=== PATIENT | female | born 1975 | race Caucasian/White ===

== ENCOUNTER 2023-09-05 17:28 | Emergency (ER) | payer OTHER, SELFPAY ==
[2023-09-05 17:28] VITALS: BMI 26.8
[2023-09-05 17:30] VITALS: BP 138/81
[2023-09-05] MEDS: NSS 1000 IV (17:58)
[2023-09-05 18:15] LABS: % Basophils 0.1 % (0-2); % Immature Granulocytes 0.4 % (0-0.5); % Lymphocytes 7.2 % (20.5-51.1); % Monocytes 5.3 % (1.7-9.3); Absolute Lymphocytes 0.7 10^3/uL (1.2-3.4); Absolute Monocytes 0.5 10^3/uL (0.1-0.6); Absolute Neutrophils 8.6 10^3/uL (1.4-6.5); Hematocrit 40.6 % (37.0-47.0); Hemoglobin 13.9 g/dL (12.0-16.0); Mean Corp Hgb Conc. 34.2 g/dL (33.0-37.0); Mean Corpuscular Hgb 29.6 pg (27.0-31.0); Mean Corpuscular Volume 86.6 fL (81.0-99.0); Mean Platelet Volume 9.6 fL (7.4-10.4); Nucleated Red Blood Cells % 0 %; Platelet Count 320 10^3/uL (130-400); Red Blood Cell Count 4.69 10^6/uL (4.20-5.40); Red Cell Dist. Width 12.5 % (11.5-14.5); White Blood Cell Count 9.9 10^3/uL (4.8-10.8)
[2023-09-05 18:29] LABS: ALT (SGPT) 17 U/L (0-35); AST (SGOT) 33 U/L (14-36); Albumin 4.4 g/dl (3.5-5.0); Alkaline Phosphatase 56 U/L (38-126); Blood Urea Nitrogen 13 mg/dl (7-17); Calcium 9.4 mg/dl (8.4-10.2); Carbon Dioxide 25 mmol/L (22-30); Chloride 98 mmol/L (98-107); Estimated Creatinine Clearance 117 ml/min; Glucose 102 mg/dl (70-99); Lipase 46 U/L (23-300); Potassium 3.8 mmol/L (3.5-5.1); Sodium 131 mmol/L (135-145); Total Bilirubin 0.6 mg/dl (0.2-1.3); Total Protein 7.5 g/dl (6.3-8.2); eGFR > 60.00
[2023-09-05] MEDS: PEPCID 20 MG IV (18:32)
[2023-09-05] MEDS: ZOFRAN 4 MG IV (18:33)
[2023-09-05 19:20] LABS: HCG, Serum Qualitative Screen Negative
[2023-09-05] MEDS: DILAUDID 0.5 MG IV (19:42)
[2023-09-05 20:35] VITALS: BP 130/76
--- NOTE | 2023-09-05 21:44 | ED.GENMED ---
History of Present Illness
General
Chief Complaint: Abdominal Symptoms
Source: patient
Exam Limitations: none
Time Seen by Provider: 09/05/23 18:09
Nursing documentation reviewed up to this point in time: agreed with
Travel History
Have you had any contact with someone who has COVID-19?: No
Do you have any symptoms of coronavirus? Fever > 100 degrees, chills, cough, shortness of breath, sore throat, loss of taste or smell, muscle aches, or headache?: No
History of Present Illness
History of Present Illness:
48-year-old female with past medical history of anemia anxiety depression bipolar disorder presenting to the emergency department today with concerns of nausea vomiting diarrhea as well as right lower quad abdominal pain starting last night.
Started abruptly while sleeping last night. Ongoing symptoms this morning difficulty tolerating anything by mouth today. Denies chest pain shortness of breath or fevers. No blood in the stool
Past History
Past History
ED Past Medical History: Psychiatric (Bipolar, Anxiety, depression) and Other (Back pain, Dizziness, Headaches, Migraines, Numbness in arms and legs, Pyelonephritis, Iron -def anemia, )
ED Past Surgical History: Orthopedic (Cervical laminectomy anterior approach)
Social History
Tobacco: Non-smoker
Alcohol: None
Drug: None
Personal:
Living: with family
Employment: Employed
Family History
Family History: Other (Reviewed and noncontributory)
Review of Systems
Review of Systems
Allergies reviewed?: Yes
All Other Systems: ROS reviewed and negative except as documented in HPI and ROS
Phy Exam
Physical Exam
Physical Exam:
GENERAL: Alert , in no apparent distress
EYE: pupils equal and reactive
NECK: Supple, no significant adenopathy.
ENT: o/p clr, mmm.
CARDIAC: Regular rate and rhythm .
LUNGS: Clear breath sounds bilaterally, no acute respiratory distress, no wheezes/rales/rhonchi
ABDOMEN: Tender palpation to the right lower quadrant otherwise soft benign abdomen.
NEUROLOGICAL: Alert and oriented, no focal neuro deficits
SKIN: Warm and dry, skin intact.
MUSCULOSKELETAL: No edema, well perfused.
PSYCH: Normal and appropriate interaction.
Course
Orders/Labs/Results
Orders:
Orders
09/05/23 17:57
0.9% Sodium Chloride 1000 ml [Nss] 1,000 ml IV BOLUS
09/05/23 18:03
Complete Blood Count/With Diff Urgent
Comprehensive Metabolic Panel Urgent
HCG, Serum Qualitative Screen Urgent
Comment: ADD ON
Lipase Urgent
09/05/23 18:21
Add On- LAB Urgent
Tests Added?: hcg serum qual
CT Abd/Pel (IV only)-DH only Urgent
Comment:
Reason For Exam: rlq pain
Famotidine [Pepcid] 20 mg IV NOW STA
Ondansetron Injectable [Zofran] 4 mg IV NOW STA
09/05/23 18:37
Add On- LAB Urgent
Tests Added?: hcg qualitative
09/05/23 19:32
HYDROmorphone [Dilaudid] 0.5 mg IV NOW STA
Abnormal Lab Results
09/05/23
18:03
Absolute Neuts (auto) 8.6 H 10^3/uL
(1.4-6.5)
Absolute Lymphs (auto) 0.7 L 10^3/uL
(1.2-3.4)
Neutrophils % 87.0 H %
(42.2-75.2)
Lymphocytes % 7.2 L %
(20.5-51.1)
Sodium 131 L mmol/L
(135-145)
Glucose 102 H mg/dl
(70-99)
09/05/23 18:03
09/05/23 18:03
Vital Signs
Initial and Last Documented VS:
Initial Vital Signs
Temp Pulse Resp BP Pulse Ox
99.4 F 110 18 138/81 100
09/05/23 17:30 09/05/23 17:30 09/05/23 17:30 09/05/23 17:30 09/05/23 17:30
Last Documented Vital Signs
Temp Pulse Resp BP Pulse Ox
99.4 F 89 18 130/76 98
09/05/23 17:30 09/05/23 20:35 09/05/23 17:30 09/05/23 20:35 09/05/23 20:35
MDM/Problems Addressed
MDM/Problems Addressed:
48-year-old female presenting to the emergency department today with concerns of nausea vomit diarrhea. Does have tenderness to the right lower quadrant. Initial symptoms sound more consistent with gastroenteritis however does have reproducible
tenderness raising concern for possible appendicitis. Concerning the CT scan was performed without evidence of appendicitis does have findings consistent with enteritis. Additionally had incidental finding that was discussed with the patient.
Labs unremarkable stable for outpatient management return precautions given.
*Critical Care Note
Total Time (30-74mins, 75-104mins- exclusive of procedures): Not Applicable
ED Attending Note
-
Portions of this chart may have been created with voice recognition software.� Occasional wrong word or��sound alike� substitutions may have occurred due to the inherent limitations of voice recognition software.
Discharge Plan
Departure
Patient Disposition: Home (Routine Discharge)
Date of Disposition: 09/05/23
Time of Disposition: 21:44
Patient with high blood pressure during this ER visit?: No
Condition: Good
Covid-19: Not Applicable
Discharge Problem:
Enteritis, Kidney mass
Instructions: Abdominal Pain
Prescriptions:
New
ondansetron 4 mg tablet,disintegrating
4 mg PO Q8H PRN (Reason: nausea and vomiting) Qty: 7 0RF
No Action
lamotrigine [Lamictal] 200 MG tablet
200 mg PO QHS
clonazepam 1 MG tablet
0.5 mg PO TIDPRN PRN (Reason: anxiety)
duloxetine [Cymbalta] 60 mg Capsule,Delayed Release(Dr/Ec)
120 mg PO DAILY
Caplyta 42 mg Capsule
42 mg PO QHS
cyanocobalamin (vitamin B-12) 1,000 mcg Tablet
1,000 mcg PO DAILY Qty: 30 0RF
clonazepam 0.5 mg Tablet
0.5 mg PO DAILY
clonazepam 0.5 mg Tablet
1 mg PO HS
loperamide 2 mg Tablet
2 mg PO TIDPRN PRN (Reason: diarrhea)
ibuprofen [Advil] 200 mg Tablet
200 mg PO BIDPRN PRN (Reason: mild pain)
bismuth subsalicylate [Pepto-Bismol] 262 mg Tablet,Chewable
2 tab PO BIDPRN PRN (Reason: gerd)
ergocalciferol (vitamin D2) 1,250 mcg (50,000 unit) Capsule
1,250 mcg PO BOYD
drospirenone-ethinyl estradiol 3-0.03 mg Tablet
1 tab PO DAILY
buspirone [BuSpar] 15 mg Tablet
15 mg PO BID
oxycodone 5 mg tablet
5 mg PO Q4HPRN PRN (Reason: severe pains)
Referrals:
Amanda Norwood MD [Family Provider] -
Activity Restrictions/Additional Instructions:
You came to the emergency department today with concerns of abdominal discomfort. You are found to have enteritis. Please take Zofran as needed as symptoms will hopefully improve over the next few days. Please dehydrated. Additionally had an
incidental finding of a small lesion to your left kidney. Please follow closely as an outpatient for an MRI for further assessment of this. Return to the emergency department for any worsening, new or concerning symptoms.
Interventions
Interventions:
*Risk Screen - Suicide Last Done: 09/05/23 17:30
*General Assessment Last Done: 09/05/23 17:30
*Neglect/Abuse Screening Last Done: 09/05/23 17:30
ED- Fall Risk Assessment Last Done: 09/05/23 17:59
*ED COVID-19 Vaccine History Last Done: 09/05/23 17:30
ZY-Lnqzub-Oqjqavtbmf Assessment Last Done: 09/05/23 17:59
== END 2023-09-05 22:50 | disposition home or self-care (01) ==
LOC: EMR 17:28
PROVIDERS: EMERGENCY PHYSICIAN Emergency Medicine; FAMILY PHYSICIAN Student in an Organized Health Care Education/Training Program
DX: K52.9 Noninfective gastroenteritis and colitis, unspecified (principal); N28.89 Other specified disorders of kidney and ureter; D64.9 Anemia, unspecified; F31.9 Bipolar disorder, unspecified; F41.9 Anxiety disorder, unspecified
CPT/HCPCS: 99284; 96374; 96375; 96361; 74177; 80053; 83690; 84703; 85025; Q9967

== ENCOUNTER 2024-01-19 22:30 | Emergency (ER) | payer OTHER, SELFPAY ==
[2024-01-19 22:32] VITALS: BP 130/86
--- NOTE | 2024-01-19 23:12 | ED.GENMED ---
History of Present Illness
<MOON Le - Last Filed: 01/19/24 23:31>
General
Chief Complaint: Fever
Source: patient
Exam Limitations: none
Time Seen by Provider: 01/19/24 23:00
Travel History
Have you had any contact with someone who has COVID-19?: No
Do you have any symptoms of coronavirus? Fever > 100 degrees, chills, cough, shortness of breath, sore throat, loss of taste or smell, muscle aches, or headache?: No
History of Present Illness
History of Present Illness:
48 year old female with hx of anxiety, depression, bipolar disorder, proteinuria, mass to the L kidney on MTX who presents with intermittent LUQ abdominal pain that began a couple of days ago, worsened tonight. Pt reports the pain today began at
around 1700 today. Pain is achy, 6/10 strength, and radiates to the L flank. Pt states she took Tylenol 325 mg x2 tabs at 1800 with minimal relief. She reports associated nausea, chills, and low grade fever of 99F. Pt has a hx of 8 mm L kidney mass
and proteinuria. 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 Julian Figueredo who prescribed pt MTX which she has been on for 3 weeks now. States the kidney mass was not large enough for bx. She has follow up at [place] in March. She reports dark
colored urine. Denies vomiting, diarrhea, constipation, dysuria, chest pain, SOB. States she is set out for a 24 hour urine collection test this week.
Past History
<MOON Le - Last Filed: 01/19/24 23:31>
Past History
ED Past Medical History: Psychiatric (Bipolar, Anxiety, depression) and Other (Back pain, Dizziness, Headaches, Migraines, Numbness in arms and legs, Pyelonephritis, Iron -def anemia, )
ED Past Surgical History: Orthopedic (Cervical laminectomy anterior approach)
Social History
Tobacco: Non-smoker
Alcohol: None
Drug: None
Personal:
Living: with family
Employment: Employed
Family History
Family History: Other (Reviewed and noncontributory)
Review of Systems
<MOON Le - Last Filed: 01/19/24 23:31>
Review of Systems
Allergies reviewed?: Yes
All Other Systems: ROS reviewed and negative except as documented in HPI and ROS
Constitutional: Reports fever and chills
EENT: Reports no symptoms
Respiratory: Reports no symptoms
Cardiac: Reports no symptoms
ABD/GI: Reports abdominal pain and nausea
: Reports dark urine
Musculoskeletal: Reports no symptoms
Skin: Reports no symptoms
Neurological: Reports no symptoms
Endocrine: Reports no symptoms
Hematologic/Lymphatic: Reports no symptoms
Psychiatric: Reports no symptoms
Phy Exam
<MOON Le - Last Filed: 01/19/24 23:31>
General Physical Exam
General Presentation: other (appears uncomfortable)
General age: appears stated age
General Skin: warm and dry
General Habitus: normal
General Mental: alert
General Hydration: appears well hydrated
Cardiovascular Exam
Cardiovascular Exam: regular rate/rhythm, no edema, no gallop and no murmur
Pulmonary Exam
Pulmonary Exam: lungs clear, no respiratory distress, no rales, no crackles, no rhonchi, no wheezing and no cough
Gastrointestinal Exam
Gastrointestinal Exam: normal bowel sounds, soft, no pulsatile mass, non distended and cva tenderness (L)
Palpation: left upper quadrant: Moderate tenderness
Skin Exam
Skin Exam: normal color and warm/dry
Psychiatric Exam
Psychiatric Exam: normal mood/affect
Course
<MOON Le - Last Filed: 01/19/24 23:31>
Orders/Labs/Results
Orders:
Orders
01/19/24 23:22
IV Insert/Care/Rem.- Treatment PRN
Urinalysis Reflex To Culture Urgent
Date Specimen was Collected: 01/19/24
Time Specimen was Collected: 23:59
0.9% Sodium Chloride 1000 ml [Nss] 1,000 ml IV BOLUS
Pulse Ox/cont/shift [RESP] Stat
Quantity: 1
01/19/24 23:24
Test Result ONCE
01/19/24 23:25
Electrocardiogram (*1) Stat
Reason for Study: Abdominal Pain
EKG- Treatment ONCE
01/19/24 23:41
Complete Blood Count/With Diff Urgent
Comprehensive Metabolic Panel Urgent
HCG, Serum Qualitative Screen Urgent
Lipase Urgent
01/19/24 23:50
HYDROmorphone [Dilaudid] 0.5 mg IV NOW STA
Ondansetron Injectable [Zofran] 4 mg IV NOW STA
01/20/24 00:00
CT Abd/pelvis W Iv Cont Urgent
Reason For Exam: left cva/luq pain
01/20/24 00:08
Urine Microscopic Reflex Cult Urgent
Urine Culture Urgent
JENN Source: U
Specimen Description:
Date Specimen was Collected: 01/19/24
Time Specimen was Collected: 23:59
Abnormal Lab Results
01/19/24 01/20/24
23:41 00:08
RBC 4.19 L 10^6/uL
(4.20-5.40)
Hct 35.1 L %
(37.0-47.0)
Absolute Neuts (auto) 6.7 H 10^3/uL
(1.4-6.5)
Absolute Monos (auto) 0.8 H 10^3/uL
(0.1-0.6)
Glucose 107 H mg/dl
(70-99)
Leukocyte Esterase Rfl Trace A
(Negative)
Urine Bacteria (Reflex) Many A
(Negative)
01/19/24 23:41
01/19/24 23:41
Vital Signs
Initial and Last Documented VS:
Initial Vital Signs
Temp Pulse Resp BP Pulse Ox
98.7 F 94 24 130/86 100
01/19/24 22:32 01/19/24 22:32 01/19/24 22:32 01/19/24 22:32 01/19/24 22:32
Last Documented Vital Signs
Temp Pulse Resp BP Pulse Ox
97.9 F 85 24 96/67 98
01/20/24 02:15 01/20/24 02:36 01/19/24 22:32 01/20/24 02:36 01/20/24 02:36
<Walter Charles, DO - Last Filed: 01/20/24 02:59>
Orders/Labs/Results
Orders:
Orders
01/19/24 23:22
IV Insert/Care/Rem.- Treatment PRN
Urinalysis Reflex To Culture Urgent
Date Specimen was Collected: 01/19/24
Time Specimen was Collected: 23:59
0.9% Sodium Chloride 1000 ml [Nss] 1,000 ml IV BOLUS
Pulse Ox/cont/shift [RESP] Stat
Quantity: 1
01/19/24 23:24
Test Result ONCE
01/19/24 23:25
Electrocardiogram (*1) Stat
Reason for Study: Abdominal Pain
EKG- Treatment ONCE
01/19/24 23:41
Complete Blood Count/With Diff Urgent
Comprehensive Metabolic Panel Urgent
HCG, Serum Qualitative Screen Urgent
Lipase Urgent
01/19/24 23:50
HYDROmorphone [Dilaudid] 0.5 mg IV NOW STA
Ondansetron Injectable [Zofran] 4 mg IV NOW STA
01/20/24 00:00
CT Abd/pelvis W Iv Cont Urgent
Reason For Exam: left cva/luq pain
01/20/24 00:08
Urine Microscopic Reflex Cult Urgent
Urine Culture Urgent
JENN Source: U
Specimen Description:
Date Specimen was Collected: 01/19/24
Time Specimen was Collected: 23:59
Abnormal Lab Results
01/19/24 01/20/24
23:41 00:08
RBC 4.19 L 10^6/uL
(4.20-5.40)
Hct 35.1 L %
(37.0-47.0)
Absolute Neuts (auto) 6.7 H 10^3/uL
(1.4-6.5)
Absolute Monos (auto) 0.8 H 10^3/uL
(0.1-0.6)
Glucose 107 H mg/dl
(70-99)
Leukocyte Esterase Rfl Trace A
(Negative)
Urine Bacteria (Reflex) Many A
(Negative)
01/19/24 23:41
01/19/24 23:41
Vital Signs
Initial and Last Documented VS:
Initial Vital Signs
Temp Pulse Resp BP Pulse Ox
98.7 F 94 24 130/86 100
01/19/24 22:32 01/19/24 22:32 01/19/24 22:32 01/19/24 22:32 01/19/24 22:32
Last Documented Vital Signs
Temp Pulse Resp BP Pulse Ox
97.9 F 85 24 96/67 98
01/20/24 02:15 01/20/24 02:36 01/19/24 22:32 01/20/24 02:36 01/20/24 02:36
<MOON Le - Last Filed: 01/19/24 23:31>
MDM/Problems Addressed
Differential Diagnosis Includes:
renal colic, pancreatitis, diverticulitis, L kidney mass
Chronic conditions affecting care: Psychiatric illness
<DO Shirley Houser Last Filed: 01/20/24 02:59>
MDM/Problems Addressed
MDM/Problems Addressed:
48-year-old female with left flank pain and fever by history. No acute findings on lab or CT abdomen pelvis. Stable for discharge.
<MOON Le - Last Filed: 01/19/24 23:31>
*Critical Care Note
Total Time (30-74mins, 75-104mins- exclusive of procedures): Not Applicable
<DO Shirley Houser Last Filed: 01/20/24 02:59>
*Radiology
Radiology exam reviewed: radiology read reviewed (CT abdomen pelvis no acute findings)
*Pulse Oximetry
Patient hypoxic: no
*EKG
Interpreted by ED Provider?: NA
*Glass Blowing Instructor Interpretation
Rate: Glass Blowing Instructor- N/A
Data Reviewed
Review of Other/Old Records Reveals: Radiology Studies (Prior CT scan shows left nephric mass 8 mm)
<DO Shirley Houser Last Filed: 01/20/24 02:59>
Patient Management
Social determinants of health affecting care: Strong social support
Escalation/DeEscalation of care consider admission/obs:
Admit not indicated
ED Attending Note
<MOON Le - Last Filed: 01/19/24 23:31>
-
Portions of this chart may have been created with voice recognition software.� Occasional wrong word or��sound alike� substitutions may have occurred due to the inherent limitations of voice recognition software.
<DO Shirley Houser Last Filed: 01/20/24 02:59>
ED Attending Note
Patient seen and examined by attending physician: Yes
I performed a history and physical exam of patient and discussed management with resident, I reviewed resident's note and agree with documented findings and plan of care.: Yes
ED Attending Note:
I have reviewed and agree with history and treatment plan by MOON Le. My exam revealed
Physical Exam
General: no apparent distress, not acutely ill
Neck: supple. no meningeal signs. normal posterior pharynx
Heart: s1/s2 regular rate and rhythm, no murmur. equal radial
pulses.
HEENT: Pupils equal round reactive to light, EOMI
Lungs: no acute respiratory distress. clear bilaterally
Abdomen: normal bowel sounds. Mild left upper quadrant tenderness, left CVA tenderness
Neuro: alert and oriented. no focal neurological deficits cranial nerves II through XII intact
Skin: no rash
Psychiatric: well kept. interactive and cooperative
Extremities: no edema. no calf tenderness. negative homans. good distal pulses
Intermittent fevers for the past 4 days, history of pyelonephritis, dark urine. Will evaluate with CT abdomen pelvis, labs pending.
Discharge Plan
Departure
Patient Disposition: Home (Routine Discharge)
Date of Disposition: 01/20/24
Time of Disposition: 02:22
Patient with high blood pressure during this ER visit?: Yes
Condition: Good
Discharge Problem:
Acute left flank pain
Instructions: Nausea and Vomiting, Adult (DC), Flank Pain ED, BLOOD PRESSURE
Prescriptions:
No Action
lamotrigine [Lamictal] 200 MG tablet
200 mg PO QHS
clonazepam 1 MG tablet
0.5 mg PO TIDPRN PRN (Reason: anxiety)
duloxetine [Cymbalta] 60 mg Capsule,Delayed Release(Dr/Ec)
120 mg PO DAILY
Caplyta 42 mg Capsule
42 mg PO QHS
cyanocobalamin (vitamin B-12) 1,000 mcg Tablet
1,000 mcg PO DAILY Qty: 30 0RF
clonazepam 0.5 mg Tablet
0.5 mg PO DAILY
clonazepam 0.5 mg Tablet
1 mg PO HS
loperamide 2 mg Tablet
2 mg PO TIDPRN PRN (Reason: diarrhea)
ibuprofen [Advil] 200 mg Tablet
200 mg PO BIDPRN PRN (Reason: mild pain)
bismuth subsalicylate [Pepto-Bismol] 262 mg Tablet,Chewable
2 tab PO BIDPRN PRN (Reason: gerd)
ergocalciferol (vitamin D2) 1,250 mcg (50,000 unit) Capsule
1,250 mcg PO BOYD
drospirenone-ethinyl estradiol 3-0.03 mg Tablet
1 tab PO DAILY
buspirone [BuSpar] 15 mg Tablet
15 mg PO BID
oxycodone 5 mg tablet
5 mg PO Q4HPRN PRN (Reason: severe pains)
ondansetron 4 mg tablet,disintegrating
4 mg PO Q8H PRN (Reason: nausea and vomiting) Qty: 7 0RF
Referrals:
Amanda Norwood MD [Family Provider] -
Interventions
Interventions:
*Risk Screen - Suicide Last Done: 01/19/24 22:32
*General Assessment Last Done: 01/19/24 22:54
*Neglect/Abuse Screening Last Done: 01/19/24 22:32
ED- Fall Risk Assessment Last Done: 01/19/24 22:54
*ED COVID-19 Vaccine History Last Done: 01/19/24 22:54
*Nursing Disposition Last Done: 01/20/24 02:36
PN-Lwakfx-Futofjuzmd Assessment Last Done: 01/19/24 22:41
ED- Neurological Assessment Last Done: 01/19/24 22:54
ED-Skin Assessment Last Done: 01/19/24 22:54
Discharge Date and Time
Discharge Date/Time: 01/20/24 02:37
Print Language: SLOVENIAN
[2024-01-19] MEDS: NSS 1000 IV (23:40)
[2024-01-19 23:43] VITALS: BP 127/82
[2024-01-19 23:44] VITALS: BP 127/82
[2024-01-19 23:50] LABS: % Basophils 0.1 % (0-2); % Eosinophils 0.2 % (0-6); % Immature Granulocytes 0.3 % (0-0.5); % Lymphocytes 27.5 % (20.5-51.1); % Monocytes 7.7 % (1.7-9.3); % Neutrophils 64.2 % (42.2-75.2); Absolute Lymphocytes 2.9 10^3/uL (1.2-3.4); Absolute Monocytes 0.8 10^3/uL (0.1-0.6); Absolute Neutrophils 6.7 10^3/uL (1.4-6.5); Hematocrit 35.1 % (37.0-47.0); Hemoglobin 12.3 g/dL (12.0-16.0); Mean Corpuscular Hgb 29.4 pg (27.0-31.0); Mean Corpuscular Volume 83.8 fL (81.0-99.0); Mean Platelet Volume 9.4 fL (7.4-10.4); Nucleated Red Blood Cells % 0 %; Platelet Count 322 10^3/uL (130-400); Red Blood Cell Count 4.19 10^6/uL (4.20-5.40); Red Cell Dist. Width 13.1 % (11.5-14.5); White Blood Cell Count 10.5 10^3/uL (4.8-10.8)
[2024-01-20] MEDS: DILAUDID 0.5 MG IV (00:01)
[2024-01-20] MEDS: ZOFRAN 4 MG IV (00:01)
[2024-01-20 00:13] LABS: HCG, Serum Qualitative Screen Negative
[2024-01-20 00:18] LABS: Urine Albumin Negative (Neg - Trace); Urine Bilirubin Negative (Negative); Urine Character Slightly Cloudy (Clear); Urine Color Yellow; Urine Glucose Negative (Negative); Urine Ketone Negative (Negative); Urine Leukocyte Trace (Negative); Urine Nitrite Negative (Negative); Urine Occult Blood Negative (Negative); Urine Specific Gravity 1.015 (<1.030); Urine Urobilinogen Negative (Neg - 1+)
[2024-01-20 00:20] LABS: ALT (SGPT) 17 U/L (0-35); AST (SGOT) 30 U/L (14-36); Albumin 3.9 g/dl (3.5-5.0); Alkaline Phosphatase 57 U/L (38-126); Blood Urea Nitrogen 12 mg/dl (7-17); Calcium 10.2 mg/dl (8.4-10.2); Carbon Dioxide 27 mmol/L (22-30); Chloride 102 mmol/L (98-107); Glucose 107 mg/dl (70-99); Lipase 96 U/L (23-300); Potassium 3.8 mmol/L (3.5-5.1); Sodium 136 mmol/L (135-145); Total Bilirubin 0.3 mg/dl (0.2-1.3); Total Protein 6.8 g/dl (6.3-8.2); eGFR > 60.00
[2024-01-20 00:33] LABS: Urine Amorphous Seen; Urine Bacteria Many (Negative); Urine Red Blood Cell None Seen /HPF (0-2); Urine White Cell None Seen /HPF (0-5)
[2024-01-20 02:36] VITALS: BP 96/67
== END 2024-01-20 02:37 | disposition home or self-care (01) ==
LOC: EMR 22:30
PROVIDERS: EMERGENCY PHYSICIAN Emergency Medicine; FAMILY PHYSICIAN Student in an Organized Health Care Education/Training Program
DX: R50.9 Fever, unspecified (principal); F41.8 Other specified anxiety disorders; F31.9 Bipolar disorder, unspecified
CPT/HCPCS: 99284; 96374; 96375; 74177; 80053; 81003; 81015; 83690; 84703; 85025; 87086; 93005; Q9967

== ENCOUNTER → 2024-01-22 16:36 | Outpatient (REF) | payer OTHER, SELFPAY | LOC: WDC 16:36 | PROVIDERS: ATTENDING PHYSICIAN Obstetrics & Gynecology; FAMILY PHYSICIAN Student in an Organized Health Care Education/Training Program | DX: Z12.31 Encounter for screening mammogram for malignant neoplasm of breast (principal) | CPT/HCPCS: 77063; 77067 ==

== ENCOUNTER 2024-03-14 08:42 | Emergency (ER) | payer OTHER, SELFPAY ==
[2024-03-14 08:47] VITALS: BP 143/75
--- NOTE | 2024-03-14 09:13 | ED.GENMED ---
History of Present Illness
General
Chief Complaint: Cough
Source: patient
Time Seen by Provider: 03/14/24 09:04
History of Present Illness
History of Present Illness:
49-year-old female with past medical history of migraines, bipolar disorder presenting to the emergency department for evaluation of a intermittently productive cough that last for more 2 to 3 weeks, felt warm but no fevers, mild headache and
generalized fatigue. Patient thought symptoms were allergies so had been taking some Claritin but without any relief. Last night symptoms seem to be worse prompting her to want to go to urgent care today but when they were close decided to come to
the ER instead. She denies any known sick contacts, recent travel or recent antibiotics. Denies any other URI-like symptoms including sore throat, rhinorrhea/nasal congestion, abdominal pain or GI related symptoms. Patient did not self test for
COVID. Social history was otherwise unremarkable. Of note patient does take an oral contraceptive.
Past History
Past History
ED Past Medical History: Psychiatric (Bipolar, Anxiety, depression) and Other (Back pain, Dizziness, Headaches, Migraines, Numbness in arms and legs, Pyelonephritis, Iron -def anemia, )
ED Past Surgical History: Orthopedic (Cervical laminectomy anterior approach)
Social History
Tobacco: Non-smoker
Alcohol: None
Drug: None
Personal:
Living: with family
Employment: Employed
Family History
Family History: Other (Reviewed and noncontributory)
Review of Systems
Review of Systems
All Other Systems: ROS reviewed and negative except as documented in HPI and ROS
Phy Exam
Physical Exam
Physical Exam:
GENERAL: Alert , in no apparent distress, persistent nonproductive cough
EYE: conjunctiva clear
NECK: Supple
ENT: o/p clr, mmm.
CARDIAC: Borderline tachycardic rate and rhythm, no murmur
LUNGS: Clear breath sounds bilaterally, no acute respiratory distress, no wheezes/rales/rhonchi
NEUROLOGICAL: Alert and oriented
SKIN: Warm and dry, skin intact.
MUSCULOSKELETAL: well perfused. No edema
PSYCH: Normal and appropriate interaction.
Scores
Heart Failure Risk
Heart Failure Risk Score: Not Applicable
Heart Score for Chest Pain Patients
STEMI patient?: Not applicable
Withdrawal Assessment of Alcohol
Withdrawal Assessment Completed?: Not applicable
Course
Orders/Labs/Results
Orders:
Orders
03/14/24 09:19
Test Result ONCE
03/14/24 09:20
Complete Blood Count/With Diff Urgent
Comprehensive Metabolic Panel Urgent
D-Dimer Urgent
HCG, Serum Qualitative Screen Urgent
03/14/24 10:12
CR Chest - 2 Views Urgent
Comment:
Reason For Exam: cough x 3 weeks
Abnormal Lab Results
03/14/24
09:20
Absolute Monos (auto) 1.0 H 10^3/uL
(0.1-0.6)
Lymphocytes % 15.0 L %
(20.5-51.1)
Monocytes % 11.3 H %
(1.7-9.3)
Glucose 105 H mg/dl
(70-99)
03/14/24 09:20
03/14/24 09:20
Vital Signs
Initial and Last Documented VS:
Initial Vital Signs
Temp Pulse Resp BP Pulse Ox
97.3 F 107 20 143/75 99
03/14/24 08:47 03/14/24 08:47 03/14/24 08:47 03/14/24 08:47 03/14/24 08:47
Last Documented Vital Signs
Temp Pulse Resp BP Pulse Ox
97.3 F 78 16 118/57 97
03/14/24 08:47 03/14/24 10:14 03/14/24 10:14 03/14/24 10:14 03/14/24 10:14
MDM/Problems Addressed
Differential Diagnosis Includes:
Viral syndrome, bronchitis, PE considered given patient's use of oral contraceptive, pneumonia
MDM/Problems Addressed:
49-year-old female presenting to the emergency department for evaluation of persistent cough over the last 2 to 3 weeks, no improvement with OTC medications. Patient without fever. She is hemodynamically stable here. Mild tachycardia noted.
Given the mild tachycardia combined with patient being on oral contraceptive I did order a D-dimer in addition to the rest of the labs. If D-dimer is positive will obtain CTA of the chest. If negative will obtain chest x-ray. Patient lungs are
clear to auscultation. I do anticipate discharge home pending workup.
*Radiology
Radiology exam reviewed: preliminary read by ED provider (RLL infiltrate)
*Pulse Oximetry
Patient hypoxic: no
*Critical Care Note
Total Time (30-74mins, 75-104mins- exclusive of procedures): Not Applicable
Data Reviewed
Review of Other/Old Records Reveals: Labs and Records
Patient Management
Escalation/DeEscalation of care consider admission/obs:
Patient's chest x-ray shows a right lower lobe infiltrate. She is immunocompetent, hemodynamically stable and in no acute respiratory distress. I think it is reasonable to treat patient as an outpatient. Prescription for Augmentin and albuterol
inhaler provided. Patient aware of return precautions to ER but otherwise stable for discharge home.
ED Attending Note
-
Portions of this chart may have been created with voice recognition software.� Occasional wrong word or��sound alike� substitutions may have occurred due to the inherent limitations of voice recognition software.
Discharge Plan
Departure
Patient Disposition: Home (Routine Discharge)
Date of Disposition: 03/14/24
Time of Disposition: 11:21
Patient with high blood pressure during this ER visit?: No
Discharge Problem:
Pneumonia
Instructions: Pneumonia, Adult (DC)
Prescriptions:
New
amoxicillin-pot clavulanate 875-125 mg tablet
1 tab PO BID 10 Days Qty: 20 0RF
dextromethorphan-guaifenesin [Robitussin Cough-Chest Randall DM] 5-100 mg/5 mL liquid
10 ml PO Q8H PRN (Reason: Cough) Qty: 250 0RF
albuterol sulfate 90 mcg/actuation HFA aerosol inhaler
2 puff inhalation Q6H PRN (Reason: shortness of breath or wheezing) Qty: 6.7 0RF
No Action
lamotrigine [Lamictal] 200 MG tablet
200 mg PO QHS
clonazepam 1 MG tablet
0.5 mg PO TIDPRN PRN (Reason: anxiety)
duloxetine [Cymbalta] 60 mg Capsule,Delayed Release(Dr/Ec)
120 mg PO DAILY
Caplyta 42 mg Capsule
42 mg PO QHS
cyanocobalamin (vitamin B-12) 1,000 mcg Tablet
1,000 mcg PO DAILY Qty: 30 0RF
clonazepam 0.5 mg Tablet
0.5 mg PO DAILY
clonazepam 0.5 mg Tablet
1 mg PO HS
loperamide 2 mg Tablet
2 mg PO TIDPRN PRN (Reason: diarrhea)
ibuprofen [Advil] 200 mg Tablet
200 mg PO BIDPRN PRN (Reason: mild pain)
bismuth subsalicylate [Pepto-Bismol] 262 mg Tablet,Chewable
2 tab PO BIDPRN PRN (Reason: gerd)
ergocalciferol (vitamin D2) 1,250 mcg (50,000 unit) Capsule
1,250 mcg PO BOYD
drospirenone-ethinyl estradiol 3-0.03 mg Tablet
1 tab PO DAILY
buspirone [BuSpar] 15 mg Tablet
15 mg PO BID
oxycodone 5 mg tablet
5 mg PO Q4HPRN PRN (Reason: severe pains)
ondansetron 4 mg tablet,disintegrating
4 mg PO Q8H PRN (Reason: nausea and vomiting) Qty: 7 0RF
Referrals:
Amanda Norwood MD [Family Provider] -
Interventions
Interventions:
*Risk Screen - Suicide Last Done: 03/14/24 08:47
*General Assessment Last Done: 03/14/24 08:47
*Neglect/Abuse Screening Last Done: 03/14/24 08:47
*Nursing Disposition Last Done: 03/14/24 11:44
ED- Pulmonary Assessment Last Done: 03/14/24 09:17
Discharge Date and Time
Discharge Date/Time: 03/14/24 11:44
Print Language: VIETNAMESE
[2024-03-14 09:17] VITALS: BMI 24.9
[2024-03-14 09:28] LABS: % Basophils 0.1 % (0-2); % Eosinophils 0.1 % (0-6); % Immature Granulocytes 0.3 % (0-0.5); % Monocytes 11.3 % (1.7-9.3); % Neutrophils 73.2 % (42.2-75.2); Absolute Lymphocytes 1.3 10^3/uL (1.2-3.4); Absolute Neutrophils 6.3 10^3/uL (1.4-6.5); Hematocrit 38.5 % (37.0-47.0); Hemoglobin 13.3 g/dL (12.0-16.0); Mean Corp Hgb Conc. 34.5 g/dL (33.0-37.0); Mean Corpuscular Hgb 29.5 pg (27.0-31.0); Mean Corpuscular Volume 85.4 fL (81.0-99.0); Mean Platelet Volume 9.5 fL (7.4-10.4); Nucleated Red Blood Cells % 0 %; Platelet Count 327 10^3/uL (130-400); Red Blood Cell Count 4.51 10^6/uL (4.20-5.40); Red Cell Dist. Width 14.1 % (11.5-14.5); White Blood Cell Count 8.6 10^3/uL (4.8-10.8)
[2024-03-14 09:38] LABS: D-Dimer 0.37 ug/mlFEU (0.00-0.50)
[2024-03-14 09:42] LABS: ALT (SGPT) 16 U/L (0-35); AST (SGOT) 28 U/L (14-36); Alkaline Phosphatase 61 U/L (38-126); Blood Urea Nitrogen 7 mg/dl (7-17); Carbon Dioxide 26 mmol/L (22-30); Chloride 102 mmol/L (98-107); Estimated Creatinine Clearance 80 ml/min; Glucose 105 mg/dl (70-99); Potassium 3.9 mmol/L (3.5-5.1); Sodium 135 mmol/L (135-145); Total Bilirubin 0.3 mg/dl (0.2-1.3); Total Protein 6.6 g/dl (6.3-8.2); eGFR > 60.00
[2024-03-14 10:01] LABS: HCG, Serum Qualitative Screen Negative
[2024-03-14 10:14] VITALS: BP 118/57
== END 2024-03-14 11:44 | disposition home or self-care (01) ==
LOC: EMR 08:42
PROVIDERS: Physician Assistant Medical; EMERGENCY PHYSICIAN Emergency Medicine; FAMILY PHYSICIAN Student in an Organized Health Care Education/Training Program
DX: J18.9 Pneumonia, unspecified organism (principal); R00.0 Tachycardia, unspecified; F31.9 Bipolar disorder, unspecified; F41.9 Anxiety disorder, unspecified; F32.A Depression, unspecified; D50.9 Iron deficiency anemia, unspecified; G43.909 Migraine, unspecified, not intractable, without status migrainosus; Z79.3 Long term (current) use of hormonal contraceptives; Z88.5 Allergy status to narcotic agent
CPT/HCPCS: 99283; 71046; 80053; 84703; 85025; 85379

== ENCOUNTER 2024-03-15 19:06 | Emergency (ER) | payer OTHER, SELFPAY ==
[2024-03-15 19:09] VITALS: BP 120/78
[2024-03-15 19:45] VITALS: BMI 24.7
--- NOTE | 2024-03-15 19:48 | ED.GENMED ---
History of Present Illness
General
Chief Complaint: Cough
Source: patient
Exam Limitations: none
Time Seen by Provider: 03/15/24 19:34
History of Present Illness
History of Present Illness:
This is a 49 year old female that comes in with c/o cough. States that she was here yesterday and was diagnosed with Pneumonia. States that she was place on Amoxicillin and albuterol inhaler. States that she took them at 12 noon and 6pm. states
that she was also using Robitussin with her last dose at 4pm. States that she is coughing and can't catch her breath. States that she has a headache with dizziness and nausea and vomiting with SOB. Denies any fever, chills, chest pain, abd pain,
diarrhea urinary burning.
Past History
Past History
ED Past Medical History: Psychiatric (Bipolar, Anxiety, depression) and Other (Back and neck pain, Dizziness, Headaches, Migraines, Numbness in arms and legs, Pyelonephritis, Iron -def anemia, PNA, )
ED Past Surgical History: Orthopedic (Cervical laminectomy anterior approach)
Social History
Tobacco: Non-smoker
Alcohol: None
Drug: None
Personal:
Living: with family
Employment: Employed
Family History
Family History: Other (Reviewed and noncontributory)
Review of Systems
Review of Systems
All Other Systems: ROS reviewed and negative except as documented in HPI and ROS
Constitutional: Reports no symptoms; Denies fever or chills
EENT: Reports no symptoms
Respiratory: Reports cough and trouble breathing
Cardiac: Reports no symptoms; Denies chest pain
ABD/GI: Reports nausea and vomiting; Denies abdominal pain or diarrhea
: Reports no symptoms; Denies dysuria, frequency or urgency
Musculoskeletal: Reports no symptoms
Skin: Reports no symptoms
Neurological: Reports dizzy and headache
Psychiatric: Reports no symptoms
Phy Exam
General Physical Exam
General Presentation: mild distress
General age: appears stated age
General Skin: other (clammy)
General Habitus: normal
General Mental: alert
General Hydration: appears well hydrated
ENT Exam
ENT Exam: TM's normal, pharynx normal and neck supple
Eye Exam
Eye Exam: EOMI
Cardiovascular Exam
Cardiovascular Exam: regular rate/rhythm, no edema, no murmur and normal peripheral pulses
Pulmonary Exam
Pulmonary Exam: lungs clear, no respiratory distress, no rales, chest non tender, no crackles, no rhonchi, no wheezing and no cough
Gastrointestinal Exam
Gastrointestinal Exam: normal bowel sounds, non tender, soft, no organomegaly, no pulsatile mass and non distended
Musculoskeletal Exam
Musculoskeletal Exam: full ROM and no edema
Skin Exam
Skin Exam: normal color, warm/dry and no rash
Psychiatric Exam
Psychiatric Exam: normal mood/affect
Course
Orders/Labs/Results
Orders:
Orders
03/15/24 19:45
0.9% Sodium Chloride 1000 ml [Nss] 1,000 ml IV BOLUS
Ondansetron Injectable [Zofran] 4 mg IV NOW STA
Promethazine/Codeine [Phenergan with Codeine Syrup] 5 ml PO NOW STA
Test Result ONCE
03/15/24 20:01
Complete Blood Count/With Diff Urgent
Comprehensive Metabolic Panel Urgent
HCG, Serum Qualitative Screen Urgent
Abnormal Lab Results
03/15/24
20:01
Absolute Monos (auto) 1.0 H 10^3/uL
(0.1-0.6)
Monocytes % 12.2 H %
(1.7-9.3)
BUN 6 L mg/dl
(7-17)
Calcium 10.3 H mg/dl
(8.4-10.2)
03/15/24 20:01
03/15/24 20:01
Labs unremarkable. HCG negative.
Vital Signs
Initial and Last Documented VS:
Initial Vital Signs
Pulse Resp BP Pulse Ox
110 28 120/78 98
03/15/24 19:09 03/15/24 19:09 03/15/24 19:09 03/15/24 19:09
Last Documented Vital Signs
Pulse Resp BP Pulse Ox
79 13 117/77 99
03/15/24 20:45 03/15/24 20:45 03/15/24 20:00 03/15/24 20:45
MDM/Problems Addressed
Differential Diagnosis Includes:
PNA,
MDM/Problems Addressed:
This is a 49 year old female that comes in with c/o cough and not being able to catch her breath. States that she was here yesterday and diagnosed with Pneumonia.
Will check labs, and medicate.
Back into see patient. Patient states that she is not coughing as much and is feeling better. Will switch the antibiotic to Doxycycline and will give Tylenol with Codeine for her cough. Patient to return with increased shortness of breath or any
other concerns.
Chronic conditions affecting care:
NA
Acute Exacerbation and/or Progression of Chronic Illness:
NA
*Pulse Oximetry
Patient hypoxic: no
*EKG
Interpreted by ED Provider?: NA
Rate: EKG- N/A
*Critical Care Note
Total Time (30-74mins, 75-104mins- exclusive of procedures): Not Applicable
ED Attending Note
-
Portions of this chart may have been created with voice recognition software.� Occasional wrong word or��sound alike� substitutions may have occurred due to the inherent limitations of voice recognition software.
Discharge Plan
Departure
Patient Disposition: Home (Routine Discharge)
Date of Disposition: 03/15/24
Time of Disposition: 21:42
Patient with high blood pressure during this ER visit?: No
Condition: Good
Covid-19: Not Applicable
Discharge Problem:
Right lower lobe pneumonia, Cough in adult
Instructions: Pneumonia, Adult (DC), Cough, Adult (DC)
Prescriptions:
New
doxycycline hyclate 100 mg capsule
100 mg PO BID Qty: 19 0RF
acetaminophen-codeine 120-12 mg/5 mL solution
5 ml PO Q8H PRN (Reason: Cough) Qty: 50 0RF
No Action
lamotrigine [Lamictal] 200 MG tablet
200 mg PO QHS
clonazepam 1 MG tablet
0.5 mg PO TIDPRN PRN (Reason: anxiety)
duloxetine [Cymbalta] 60 mg Capsule,Delayed Release(Dr/Ec)
120 mg PO DAILY
Caplyta 42 mg Capsule
42 mg PO QHS
cyanocobalamin (vitamin B-12) 1,000 mcg Tablet
1,000 mcg PO DAILY Qty: 30 0RF
clonazepam 0.5 mg Tablet
0.5 mg PO DAILY
clonazepam 0.5 mg Tablet
1 mg PO HS
loperamide 2 mg Tablet
2 mg PO TIDPRN PRN (Reason: diarrhea)
ibuprofen [Advil] 200 mg Tablet
200 mg PO BIDPRN PRN (Reason: mild pain)
bismuth subsalicylate [Pepto-Bismol] 262 mg Tablet,Chewable
2 tab PO BIDPRN PRN (Reason: gerd)
ergocalciferol (vitamin D2) 1,250 mcg (50,000 unit) Capsule
1,250 mcg PO BOYD
drospirenone-ethinyl estradiol 3-0.03 mg Tablet
1 tab PO DAILY
buspirone [BuSpar] 15 mg Tablet
15 mg PO BID
oxycodone 5 mg tablet
5 mg PO Q4HPRN PRN (Reason: severe pains)
ondansetron 4 mg tablet,disintegrating
4 mg PO Q8H PRN (Reason: nausea and vomiting) Qty: 7 0RF
amoxicillin-pot clavulanate 875-125 mg tablet
1 tab PO BID 10 Days Qty: 20 0RF
dextromethorphan-guaifenesin [Robitussin Cough-Chest Randall DM] 5-100 mg/5 mL liquid
10 ml PO Q8H PRN (Reason: Cough) Qty: 250 0RF
albuterol sulfate 90 mcg/actuation HFA aerosol inhaler
2 puff inhalation Q6H PRN (Reason: shortness of breath or wheezing) Qty: 6.7 0RF
Referrals:
Amanda Norwood MD [Family Provider] - Follow up in 5-7 days
Activity Restrictions/Additional Instructions:
As discussed, your blood work is normal. Your antibiotic has been changed and you were given your first dose here. You have had a Prescription for Tylenol with Codeine sent to your Pharmacy. PLEASE DO NOT TAKE ANY OTHER TYLENOL. This will help with
the cough and help you sleep. Follow up with the family doctor for recheck. IF YOU HAVE INCREASED SHORTNESS OF BREATH, OR YOU FEEL YOU ARE JUST NOT GETTING ANY BETTER PLEASE RETURN TO THE EMERGENCY ROOM.
Interventions
Interventions:
*Risk Screen - Suicide Last Done: 03/15/24 19:09
*General Assessment Last Done: 03/15/24 19:41
*Neglect/Abuse Screening Last Done: 03/15/24 19:09
ED- Fall Risk Assessment Last Done: 03/15/24 19:41
*ED COVID-19 Vaccine History Last Done: 03/15/24 19:41
ED- Cardiac Assessment Last Done: 03/15/24 19:41
ED- Pulmonary Assessment Last Done: 03/15/24 19:41
Discharge Date and Time
Print Language: AUSTRALIAN
[2024-03-15 20:00] VITALS: BP 117/77
[2024-03-15] MEDS: NSS 1000 IV (20:08)
[2024-03-15] MEDS: ZOFRAN 4 MG IV (20:09)
[2024-03-15 20:10] LABS: % Basophils 0.1 % (0-2); % Eosinophils 0.1 % (0-6); % Immature Granulocytes 0.1 % (0-0.5); % Lymphocytes 25.3 % (20.5-51.1); % Monocytes 12.2 % (1.7-9.3); % Neutrophils 62.2 % (42.2-75.2); Absolute Neutrophils 4.9 10^3/uL (1.4-6.5); Hematocrit 40.4 % (37.0-47.0); Hemoglobin 13.8 g/dL (12.0-16.0); Mean Corp Hgb Conc. 34.2 g/dL (33.0-37.0); Mean Corpuscular Hgb 29.9 pg (27.0-31.0); Mean Corpuscular Volume 87.4 fL (81.0-99.0); Mean Platelet Volume 9.5 fL (7.4-10.4); Nucleated Red Blood Cells % 0 %; Platelet Count 360 10^3/uL (130-400); Red Blood Cell Count 4.62 10^6/uL (4.20-5.40); White Blood Cell Count 7.9 10^3/uL (4.8-10.8)
[2024-03-15] MEDS: PHENERGAN WITH CODEINE SYRUP 5 ML PO (20:11)
[2024-03-15 20:20] LABS: HCG, Serum Qualitative Screen Negative
[2024-03-15 20:25] LABS: ALT (SGPT) 16 U/L (0-35); AST (SGOT) 33 U/L (14-36); Albumin 4.5 g/dl (3.5-5.0); Alkaline Phosphatase 58 U/L (38-126); Blood Urea Nitrogen 6 mg/dl (7-17); Calcium 10.3 mg/dl (8.4-10.2); Carbon Dioxide 27 mmol/L (22-30); Chloride 100 mmol/L (98-107); Glucose 97 mg/dl (70-99); Potassium 3.8 mmol/L (3.5-5.1); Sodium 136 mmol/L (135-145); Total Bilirubin 0.5 mg/dl (0.2-1.3); Total Protein 7.3 g/dl (6.3-8.2); eGFR > 60.00
[2024-03-15 22:00] VITALS: BP 112/69
[2024-03-15] MEDS: VIBRAMYCIN 100 MG PO (22:07)
== END 2024-03-15 22:20 | disposition home or self-care (01) ==
LOC: EMR 19:06
PROVIDERS: Clinical Nurse Specialist Family Health; EMERGENCY PHYSICIAN Emergency Medicine; FAMILY PHYSICIAN Student in an Organized Health Care Education/Training Program
DX: J18.9 Pneumonia, unspecified organism (principal); R05.9 Cough, unspecified; F31.9 Bipolar disorder, unspecified; F41.9 Anxiety disorder, unspecified
CPT/HCPCS: 99283; 96374; 96361; 80053; 84703; 85025

== ENCOUNTER 2024-03-18 19:10 | Inpatient (IN) | payer OTHER, SELFPAY ==
[2024-03-18 15:52] VITALS: BP 141/74
[2024-03-18 16:04] VITALS: BMI 24.5
--- NOTE | 2024-03-18 16:38 | ED.GENMED ---
History of Present Illness
General
Chief Complaint: Cough
Source: patient
Time Seen by Provider: 03/18/24 16:14
History of Present Illness
History of Present Illness:
49-year-old female seen in this emergency department twice over the last week presenting back to the emergency department at request of primary care doctor for reevaluation of continued cough, shortness of breath, body aches and generally feeling
unwell. Patient was first seen 4 days ago and diagnosed with a right lower lobe pneumonia, started on Augmentin, albuterol inhaler and cough medication but she reported no relief so came back to the ER the following day. She was transitioned from
Augmentin to doxycycline which she has been taking but without any relief. She reports that she still has cough and felt today she felt more short of breath, had a harder time speaking and more exertional dyspnea. Patient also endorsed feeling of
chills. She denies any history of lung related issues and states 'I feel worse than I did when I had COVID'.
Past History
Past History
ED Past Medical History: Psychiatric (Bipolar, Anxiety, depression) and Other (Back and neck pain, Dizziness, Headaches, Migraines, Numbness in arms and legs, Pyelonephritis, Iron -def anemia, PNA, )
ED Past Surgical History: Orthopedic (Cervical laminectomy anterior approach)
Social History
Tobacco: Non-smoker
Alcohol: None
Drug: None
Personal:
Living: with family
Employment: Employed
Family History
Family History: Other (Reviewed and noncontributory)
Review of Systems
Review of Systems
All Other Systems: ROS reviewed and negative except as documented in HPI and ROS
Phy Exam
Physical Exam
Physical Exam:
GENERAL: Alert , in no apparent distress
EYE: conjunctiva clear
NECK: Supple
ENT: o/p clr, mmm.
CARDIAC: Regular rate and rhythm
LUNGS: crackles right mid to lower lung, appears dyspneic, constant dry cough, no tachypnea or accessory muscle use
NEUROLOGICAL: Alert and oriented
SKIN: Warm and dry, skin intact.
MUSCULOSKELETAL: well perfused.
PSYCH: Normal and appropriate interaction.
Scores
Heart Failure Risk
Heart Failure Risk Score: Not Applicable
Heart Score for Chest Pain Patients
STEMI patient?: Not applicable
Withdrawal Assessment of Alcohol
Withdrawal Assessment Completed?: Not applicable
Course
Orders/Labs/Results
Orders:
Orders
03/18/24 16:24
Electrocardiogram (*1) Urgent
Reason for Study: Shortness of Breath
EKG- Treatment ONCE
Albuterol Nebs [Ventolin Nebules] 2.5 mg INH R NOW STA
Guaifenesin/Codeine Solution [Robitussin AC] 10 ml PO NOW STA
03/18/24 16:40
Complete Blood Count/With Diff Urgent
Comprehensive Metabolic Panel Urgent
Legionella Urinary Antigen Urgent
JENN Source: Urine
Specimen Description:
03/18/24 16:42
CefTRIAXone [Rocephin] 1,000 mg IV NOW STA
03/18/24 18:19
COVID-19 Antigen Stat
Source: Nasal Swab
03/18/24 18:25
CT Chest W/o Iv Contrast Stat
Comment:
Reason For Exam: SOB
03/18/24 18:27
Admit/Transfer Patient As Directed
Co-Sign Provider:
Level of Care: Inpatient admission
Assign to:: Medical/Surgical
Physician / Group: JOSEPH
Diagnosis: PNEUMONIA
Reason for Hospitalization: PNEUMONIA
Expected length of stay greater than two midnights?: Yes
ELOS- Estimated Length of Stay in days: 3
I certify the patient meets the requirements for IP care: Yes
PRN Pain Medication Management As Directed
May give lesser potent ordered pain med per pt: Yes
preference::
Protocol:: Medication orders for pain may be administered in a
manner that supports deferring to patient preference
when the pt is:
- Requesting an ordered lesser potent pain medication.
Least to most potent pain medications are defined
as: acetaminophen < NSAID < tramadol < opioids
(morphine, oxycodone, hydromorphone).
- Requesting a lesser dose of the same medication IF
ORDERED.
- Requesting a less intrusive route of administration
if both routes are prescribed by the provider (PO <
IV).
03/18/24 18:28
Code Status As Directed
Resuscitation Status: Full Code
03/18/24 18:35
Ketorolac [Toradol] 15 mg IV NOW STA
03/18/24 18:36
INFECTIOUS DISEASE CONSULT Routine
Consulting Provider: Dayami Hernandes
Was physician already notified: Yes
PULMONARY CONSULT Routine
Consulting Provider: Chantal Pierce
Was physician already notified: Yes
Abnormal Lab Results
03/18/24
16:40
WBC 13.6 H 10^3/uL
(4.8-10.8)
Plt Count 464 H D 10^3/uL
(130-400)
Abs Immat Gran (auto) 0.1 H 10^3/uL
(0-0.05)
Absolute Neuts (auto) 10.2 H 10^3/uL
(1.4-6.5)
Absolute Monos (auto) 0.9 H 10^3/uL
(0.1-0.6)
Lymphocytes % 18.0 L %
(20.5-51.1)
Calcium 10.3 H mg/dl
(8.4-10.2)
03/18/24 16:40
03/18/24 16:40
Vital Signs
Initial and Last Documented VS:
Initial Vital Signs
Temp Pulse Resp BP Pulse Ox
98.2 F 96 20 141/74 100
03/18/24 15:52 03/18/24 15:52 03/18/24 15:52 03/18/24 15:52 03/18/24 15:52
Last Documented Vital Signs
Temp Pulse Resp BP Pulse Ox
98.2 F 96 20 141/74 100
03/18/24 15:52 03/18/24 15:52 03/18/24 15:52 03/18/24 15:52 03/18/24 15:52
MDM/Problems Addressed
Differential Diagnosis Includes:
CAP, atypical pneumonia, legionella, I do not have concern for PE given negative D-dimer 4 days ago
MDM/Problems Addressed:
49-year-old female presenting to the emergency department for evaluation after being seen twice in the ER over the last 4 days due to worsening shortness of breath despite antibiotics, inhalers and cough medications. Patient is ill-appearing but
nontoxic. She is afebrile and otherwise hemodynamically stable. She does appear to be dyspneic especially when speaking. Will obtain new set of labs, chest x-ray and EKG. Will treat with albuterol and guaifenesin with codeine. Given this is
patient's third visit the ER and appears worsening despite oral antibiotics plan for admission for IV antibiotics and monitoring.
*Radiology
Radiology exam reviewed: preliminary read by ED provider (RLL pneumonia)
*Pulse Oximetry
Patient hypoxic: no
*Critical Care Note
Total Time (30-74mins, 75-104mins- exclusive of procedures): Not Applicable
Patient Management
Discussion with other providers: Hospitalist
Escalation/DeEscalation of care consider admission/obs:
Patient accepted for continued evaluation and treatment
ED Attending Note
-
Portions of this chart may have been created with voice recognition software.� Occasional wrong word or��sound alike� substitutions may have occurred due to the inherent limitations of voice recognition software.
Discharge Plan
Departure
Patient Disposition: Admit
Date of Disposition: 03/18/24
Time of Disposition: 17:36
Presentation/result/management discussed w/ accepting MD/DO: Hospitalist
Discharge Problem:
Pneumonia
Interventions
Interventions:
*Risk Screen - Suicide Last Done: 03/18/24 15:52
*General Assessment Last Done: 03/18/24 16:04
*Neglect/Abuse Screening Last Done: 03/18/24 15:52
ED- Fall Risk Assessment Last Done: 03/18/24 16:04
*ED COVID-19 Vaccine History Last Done: 03/18/24 16:04
ED- Pulmonary Assessment Last Done: 03/18/24 16:06
[2024-03-18] MEDS: ROBITUSSIN AC 10 ML PO (16:41)
[2024-03-18] MEDS: VENTOLIN NEBULES 2.5 MG INH (16:41)
[2024-03-18 16:55] LABS: % Basophils 0.1 % (0-2); % Eosinophils 0.1 % (0-6); % Immature Granulocytes 0.4 % (0-0.5); % Monocytes 6.8 % (1.7-9.3); % Neutrophils 74.6 % (42.2-75.2); Absolute Immature Granulocytes 0.1 10^3/uL (0-0.05); Absolute Lymphocytes 2.5 10^3/uL (1.2-3.4); Absolute Monocytes 0.9 10^3/uL (0.1-0.6); Absolute Neutrophils 10.2 10^3/uL (1.4-6.5); Hematocrit 38.9 % (37.0-47.0); Mean Corp Hgb Conc. 33.4 g/dL (33.0-37.0); Mean Corpuscular Hgb 29.7 pg (27.0-31.0); Mean Platelet Volume 9.4 fL (7.4-10.4); Nucleated Red Blood Cells % 0 %; Platelet Count 464 10^3/uL (130-400); Red Blood Cell Count 4.37 10^6/uL (4.20-5.40); Red Cell Dist. Width 13.8 % (11.5-14.5); White Blood Cell Count 13.6 10^3/uL (4.8-10.8)
[2024-03-18 17:12] LABS: ALT (SGPT) 18 U/L (0-35); AST (SGOT) 34 U/L (14-36); Albumin 4.3 g/dl (3.5-5.0); Alkaline Phosphatase 60 U/L (38-126); Blood Urea Nitrogen 8 mg/dl (7-17); Calcium 10.3 mg/dl (8.4-10.2); Carbon Dioxide 28 mmol/L (22-30); Chloride 102 mmol/L (98-107); Estimated Creatinine Clearance 90 ml/min; Glucose 89 mg/dl (70-99); Potassium 4.3 mmol/L (3.5-5.1); Sodium 137 mmol/L (135-145); Total Bilirubin 0.4 mg/dl (0.2-1.3); Total Protein 7.1 g/dl (6.3-8.2); eGFR > 60.00
[2024-03-18] MEDS: ROCEPHIN 1000 MG IV (17:15)
--- NOTE | 2024-03-18 18:04 | HPS.HSE ---
Addendum entered and electronically signed by Frances Delacruz MD 03/18/24 18:39:
see my update note for addendum
Original Note:
Family Physician
-
Family Physician: Amanda Norwood MD
Chief Complaint
-
Cough
Short of breath
History of Present Illness
49-year-old female with past medical history for renal mass, autoimmune disease presented to us with productive cough with yellowish to green sputum, short of breath worse with exertion , chest pain with cough for 1 week patient was evaluated in the
ER on 03/14 .patient was sent home on amoxicillin, Robitussin and albuterol.patient stated no relief with her symptoms. Patient presented to the ED following day due to worsening short of breath . She was sent home on doxycycline and Tylenol with
codeine. She has been taking medication with no relief in her symptoms. Still with persistent cough, chest pain and short of breath patient complained of pounding headache Likely from coughing . Patient also vomited today after taking antibiotics
. Patient denied fever or chills .patient denied abdominal pain or diarrhea .patient denied dysuria hematuria.
Patient received ceftriaxone in ER admitted for further management.
Medical History
Past Medical History
Past Medical History: Reports Other
Additional Past Medical History:
Left renal mass
History of pyelonephritis
Anxiety/depression
Bipolar
Migraine
Past Surgical History: Reports Other
Additional Past Surgical History:
Cervical disc fusion
Social History
Tobacco: Non-smoker
Alcohol: None
Drug: None
Personal:
Living: With Family
Family History
Family History: Not pertinent
Allergies / Home Medications
Allergies reflects when Allergies were last updated in [email or web address].
Home Medications with original date entered in [email or web address]
Allergy/Medication List:
Allergies
Allergy/AdvReac Type Severity Reaction Status Date / Time
morphine Allergy Nausea / Verified 03/18/24 15:54
Vomiting
Home Medications
lamotrigine 200 mg tablet (Lamictal) 200 mg PO HS Mental Health/Anxiety 12/19/19
duloxetine 60 mg capsule,delayed release (Cymbalta) 120 mg PO DAILY Mental Health/Anxiety 11/23/22
lumateperone 42 mg capsule (Caplyta) 42 mg PO HS Mental Health/Anxiety 11/23/22
clonazepam 0.5 mg tablet 0.5 mg PO DAILY 09/05/23
clonazepam 0.5 mg tablet 1 mg PO HS 09/05/23
drospirenone 3 mg-ethinyl estradiol 0.03 mg tablet 1 tab PO DAILY 09/05/23
oxycodone 5 mg tablet 5 mg PO Q4HPRN PRN severe pains 09/05/23
doxycycline hyclate 100 mg capsule 100 mg PO BID Respiratory issues #19 caps 03/15/24
acetaminophen 120 mg-codeine 12 mg/5 mL oral solution 5 ml PO Q8HPRN PRN Cough 03/18/24
albuterol sulfate 90 mcg/actuation aerosol inhaler 2 puff inhalation R Q6HPRN PRN shortness of breath or wheezing 03/18/24
clonazepam 0.5 mg tablet 0.5 mg PO BIDPRN PRN anxiety 03/18/24
folic acid 1 mg tablet 1 mg PO DAILY 03/18/24
methotrexate sodium 2.5 mg tablet 15 mg PO SA 03/18/24
Review of Systems
-
Constitutional: Reports No Symptoms
EENT: Reports No Symptoms
Respiratory: Reports Cough and Trouble Breathing
Cardiac: Reports No Symptoms and Chest Pain
Abdomen/GI: Reports No Symptoms
: Reports No Symptoms
Musculoskeletal: Reports No Symptoms
Skin: Reports No Symptoms
Neurological: Reports No Symptoms
Endocrine: Reports No Symptoms
Hematologic/Lymphatic: Reports No Symptoms
Psych: Reports No Symptoms
Physical Exam
Vital Signs
Vital Signs
Temp Pulse Resp BP Pulse Ox
98.2 F 96 20 141/74 100
03/18/24 15:52 03/18/24 15:52 03/18/24 15:52 03/18/24 15:52 03/18/24 15:52
Physical Exam
General: Well Developed, Well Nourished and No Apparent Distress
HEENT: NormoCephalic, Moist mucous membranes and Atraumatic
Respiratory: Clear
Cardiac: S1/S2 and Regular Rhythm; No Murmur or Rub
GI: Soft, Non Tender, Non Distended and Normal Bowel Sounds; No Organomegaly
Rectal: Deferred by Provider
Musculoskeletal: No Clubbing, No Cyanosis and No Edema
Skin: No Rash
Neuro: AO x 3 and Nonfocal/grossly intact
Psych: Calm
Laboratory Results
-
03/18/24 16:40
03/18/24 16:40
Laboratory Results
Total Bilirubin 0.4 mg/dl (0.2-1.3) 03/18/24 16:40
AST 34 U/L (14-36) 03/18/24 16:40
ALT 18 U/L (0-35) 03/18/24 16:40
Alkaline Phosphatase 60 U/L (38-126) 03/18/24 16:40
Data Reviewed
-
Diagnostic Radiology: Report Reviewed by me
Lab Data: Labs Reviewed by me
Impression/Plan
-
# Right basilar pneumonia
-WBC 13.6
-Patient received ceftriaxone in ER
-Continue ceftriaxone and doxycycline
-Nebs as needed for short of breath and wheezing
-Tessalon and Mucinex for cough
-Tylenol as needed for fever
-Chest x-ray with impression of right basilar pneumonia
-Will obtain CT of chest without contrast
# History of anxiety/depression/bipolar
-Caplyta, clonazepam continued
-Duloxetine continued
-Lamictal continued
# History of autoimmune disease
-On methotrexate
# DVT prophylaxis
-Lovenox subcu
# CODE STATUS
-Full code
--- NOTE | 2024-03-18 18:40 | W.PN.UPDATE ---
Update Note
Progress Note Update
I saw and examined the patient.
The TIMEKEEPER Del's note was reviewed and I agree with the note.
Comment: 49 y/o F, hx of autoimmune condition unspecified, anxiety/depression/BP disorder, presents to ER with worsening PNA symptoms. Diagnosed 4 days (green sputum, BENITEZ, chest pain/cough x 1 week prior). Sent home on Augmentin, later presented 1
day later without improving symptoms and started on Doxycycline without improvement. Today presents back with persisting symptoms and now headache. No fevers/chills.
In ER, WBC noted to be nearly 14 from normal.
Patient given IV Abx and admitted.
Exam:
General: Well Developed, Well Nourished and No Apparent Distress
HEENT: Normocephalic, Moist mucous membranes and Atraumatic
Respiratory: RLL faint crackles, rhonchi
Cardiac: S1/S2 and Regular Rhythm; No Murmur or Rub
GI: Soft, Non Tender, Non Distended and Normal Bowel Sounds; No Organomegaly
Rectal: Deferred by Provider
Musculoskeletal: No Clubbing, No Cyanosis and No Edema
Skin: No Rash
Neuro: AO x 3 and Nonfocal/grossly intact
Psych: Calm
Assessment:
Right basilar pneumonia
- no improvement with Augmentin, doxy outpatient
- WBC now 13.6, immunocompromised condition (autoimmune state, MTX therapy)
- start IV Rocephin, IV doxy - consult ID and obtain sputum culture
- obtain CT chest - consult Pulmonary
- symptomatic control, prn Tylenol, nebs/inhalers, mucolytics
History of anxiety/depression/bipolar
- Caplyta, clonazepam continued
- Duloxetine continued
- Lamictal continued
History of autoimmune disease, no definitive diagnosis, possibly Lupus per patient but not confirmed
- holding methotrexate
DVT ppx: Lovenox
Code: Full
[2024-03-18 18:42] LABS: COVID-19 Antigen Negative (Negative)
[2024-03-18] MEDS: TORADOL 15 MG IV (18:49)
[2024-03-18 19:46] VITALS: BP 123/72; BMI 24.1
[2024-03-18] MEDS: VIBRAMYCIN 260 MG IV (20:21)
[2024-03-18] MEDS: MUCINEX 600 MG PO (21:20)
[2024-03-18] MEDS: LAMICTAL 200 MG PO (21:20)
[2024-03-18] MEDS: KLONOPIN 1 MG PO (21:20)
[2024-03-18] MEDS: NON-FORMULARY ITEM 1 MG PO (21:20)
[2024-03-18] MEDS: TYLENOL 650 MG PO (21:48)
[2024-03-18 23:15] VITALS: BP 112/67
[2024-03-19] MEDS: TESSALON PERLES 200 MG PO ×3 (02:38→12:48)
[2024-03-19] MEDS: DUONEB 3 ML INH ×2 (02:51→13:58)
[2024-03-19] MEDS: ROXICODONE 5 MG PO ×4 (03:53→21:33)
[2024-03-19 06:28] LABS: Hematocrit 34.3 % (37.0-47.0); Hemoglobin 11.8 g/dL (12.0-16.0); Mean Corp Hgb Conc. 34.4 g/dL (33.0-37.0); Mean Corpuscular Hgb 30.3 pg (27.0-31.0); Mean Corpuscular Volume 88.2 fL (81.0-99.0); Mean Platelet Volume 9.5 fL (7.4-10.4); Platelet Count 357 10^3/uL (130-400); Red Blood Cell Count 3.89 10^6/uL (4.20-5.40); Red Cell Dist. Width 14.1 % (11.5-14.5); White Blood Cell Count 8.6 10^3/uL (4.8-10.8)
[2024-03-19 06:47] LABS: Blood Urea Nitrogen 10 mg/dl (7-17); Calcium 9.6 mg/dl (8.4-10.2); Carbon Dioxide 24 mmol/L (22-30); Chloride 104 mmol/L (98-107); Estimated Creatinine Clearance 103 ml/min; Glucose 87 mg/dl (70-99); Potassium 3.8 mmol/L (3.5-5.1); Sodium 136 mmol/L (135-145); eGFR > 60.00
[2024-03-19] MEDS: CYMBALTA DELAYED RELEASE 120 MG PO (08:12)
[2024-03-19] MEDS: KLONOPIN 0.5 MG PO (08:12)
[2024-03-19] MEDS: VIBRAMYCIN 260 MG IV (08:12)
[2024-03-19] MEDS: MUCINEX 600 MG PO ×2 (08:12→21:30)
[2024-03-19] MEDS: FOLVITE 1 MG PO (08:12)
[2024-03-19 08:25] VITALS: BP 118/70
--- NOTE | 2024-03-19 09:47 | CON.PUL ---
Consultation
Consultation Request
Date/Time Consultation Requested: 03/19
Date/Time Consultation Performed: 03/19
Reason for Consultation: Abnormal CAT scan
Medical History
-
History of Present Illness:
History obtained from the chart, patient, inpatient and outpatient records. Patient is a 49-year-old female with history of undifferentiated connective tissue disease seen by nephrology and rheumatology in the past, started on methotrexate over the
past 3 months. She is not sure whether this is helping her joint and muscle aches. She was also noted to have proteinuria, recently saw nephrology. There is no evidence of microhematuria. She apparently has a left renal lesion which is being
followed by [facility]. She was seen in the ED 03/14, 03/15/2024 for persistent cough, chest congestion. She was initially treated with amoxicillin/albuterol. She then developed increased shortness of breath. She was switched to
doxycycline and given Tylenol with codeine. She then brought herself back to [facility] 03/18 with worsening shortness of breath. Upon arrival, afebrile, pulse 96, breathing at 20, blood pressure 141/74, 100%. She was admitted for
pneumonia, we are asked to comment on her pulmonary process. She had failed outpatient therapy with antibiotics. Throughout this she denies hemoptysis, obvious fevers or chills. She has occasional sweats. She denies any blood in urine or stool,
falls, syncope.
She has been treated with steroids intermittently over the last few years, most recently early February. She is not sure whether this is helped her
.
PMH: Bipolar disorder/anxiety/depression, migraines, iron deficiency anemia, history of pneumonia, unspecified connective tissue disease on methotrexate for few months in 2023, renal lesion followed at [facility], details unclear. History of
cervical laminectomy
Past Medical History
Past Medical History: None (See above)
Past Surgical History: None ( see above)
Social History
Tobacco: Former Smoker (Quit many years ago)
Alcohol: None
Drug: None
Personal:
Living: With Family
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
Occupational Exposures: dog, no birds, no mold
Family History
Family History: Other ( Brother with Crohn's disease. Otherwise family history negative for lung disease, blood clots. Mother with history of breast cancer. 1 son healthy)
Allergies / Home Medications
Allergies
Allergy/AdvReac Type Severity Reaction Status Date / Time
morphine Allergy Nausea / Verified 03/18/24 15:54
Vomiting
Home Medications
�Medication �Instructions �Recorded �Confirmed �Last Taken �Type
lamotrigine 200 mg tablet 200 mg PO HS Mental Health/Anxiety 12/19/19 03/18/24 03/17/24 History
(Lamictal)
duloxetine 60 mg capsule,delayed 120 mg PO DAILY Mental 11/23/22 03/18/24 03/18/24 History
release (Cymbalta) Health/Anxiety
lumateperone 42 mg capsule 42 mg PO HS Mental Health/Anxiety 11/23/22 03/18/24 03/17/24 History
(Caplyta)
clonazepam 0.5 mg tablet 0.5 mg PO DAILY Mental 09/05/23 03/18/24 03/18/24 History
Health/Anxiety
clonazepam 0.5 mg tablet 1 mg PO HS Mental Health/Anxiety 09/05/23 03/18/24 03/17/24 History
drospirenone 3 mg-ethinyl 1 tab PO DAILY Hormonal Agent 09/05/23 03/18/24 03/18/24 History
estradiol 0.03 mg tablet
oxycodone 5 mg tablet 5 mg PO Q4HPRN PRN severe pains 09/05/23 03/18/24 Unknown History
doxycycline hyclate 100 mg capsule 100 mg PO BID Respiratory issues 03/15/24 03/18/24 03/18/24 Rx
#19 caps
acetaminophen 120 mg-codeine 12 5 ml PO Q8HPRN PRN Cough 03/18/24 03/18/24 03/18/24 History
mg/5 mL oral solution
albuterol sulfate 90 mcg/actuation 2 puff inhalation R Q6HPRN PRN 03/18/24 03/18/24 03/17/24 History
aerosol inhaler shortness of breath or wheezing
clonazepam 0.5 mg tablet 0.5 mg PO BIDPRN PRN anxiety 03/18/24 03/18/24 Unknown History
folic acid 1 mg tablet 1 mg PO DAILY Supplement 03/18/24 03/18/24 03/18/24 History
methotrexate sodium 2.5 mg tablet 15 mg PO SA Autoimmune Disorder 03/18/24 03/18/24 03/14/24 History
Review of Systems
-
All other systems: Negative unless noted
Vitals / Labs / Diagnostic Testing
Vital Signs
Temp Pulse Resp BP Pulse Ox
97.9 F 85 16 118/70 99
03/19/24 08:25 03/19/24 08:25 03/19/24 08:25 03/19/24 08:25 03/19/24 08:25
Lab Data
03/19/24 05:16
03/19/24 05:16
Microbiology
03/18/24 16:40 Urine Legionella Urinary Antigen - Final
Negative for Legionella pneumophila Serogroup 1 antigen.
A negative result does not rule out the possiblity of
Legionella infection due to other serogroups or species of
Legionella. Clinical correlation is recommended.
Diagnostic Testing:
Physical Exam
-
HEENT: Normocephalic and Anicteric
Cardiovascular: S1/S2, Regular Rhythm, Murmur (n), Rub (n), Peripheral Edema (n) and Calf Tenderness (n)
Respiratory: Wheeze (n), Rales ( right basilar crackles), Rhonchi (n) and Non-Labored Respirations
GI: Soft, Non Distended and Non Tender
Neurology: Awake, Alert, Oriented and No Motor Deficits ( able to sit up without assistance. However she does have bilateral lower extremity hip flexor weakness 4/5)
Skin: Good Color ( no clubbing, no rash)
General: Comfortable
Assessment
-
49-year-old female with history of subnephrotic proteinuria, unspecified connective tissue disease on methotrexate, with progressive shortness of breath failed outpatient therapy with antibiotics. We are asked to comment on her right lower lobe
pneumonia
Right lower lobe pneumonia
Failed outpatient therapy with doxycycline/amoxicillin
Crackles on exam
Mild leukocytosis
Conditions present prior to admission
Unspecified connective tissue disease
Follows rheumatology ([facility])
On methotrexate over the last few months, no significant improvement
Subnephrotic proteinuria
Nephrology evaluation negative, no evidence of hematuria
History of renal lesion? Followed at [facility], details unclear
9 mm lesion left kidney, stable per imaging compared to September 2023
Family history of breast cancer (mother)
Family history of Crohn's (brother)
Anxiety/depression, bipolar disorder
Plan/recommendations
At this time, patient describes worsening cough, shortness of breath despite outpatient antibiotic therapy for diagnosed commune acquired pneumonia
Chest exam and CT chest consistent with right lower lobe infiltrate
mild leukocytosis noted
Patient has had nephrology evaluation, no evidence of significant proteinuria/micro scopic hematuria
Cannot identify outpatient rheumatology correspondence
Moving forward
Continue with antibiotics for community-acquired pneumonia
Although patient is on methotrexate, she has only been on this for a few months
Hold methotrexate for now
Follow symptoms, exam
Would not pursue any further workup at this time
Given her history of connective tissue disease, need to consider noninfectious process but would not entertain this until she completes course of antibiotic therapy
Sputum culture if able
DVT prophylaxis: Remains on Lovenox
GI prophylaxis: Not indicated
She will require follow-up CT imaging to confirm resolution in the next 1 to 3 months.
Consider outpatient pulmonary follow-up given crackles on exam
Reviewed with patient at length. Will follow
--- NOTE | 2024-03-19 10:31 | W.PN.HOSP.TC ---
Today's Communication/Plan
-
continue symptomatic control
continue IV Abx. Await ID and Pulm evaluations
Assessment / Plan
Assessment / Plan
Assessment:
Right basilar pneumonia
- no improvement with Augmentin, doxy outpatient
- WBC elevated, immunocompromised condition (autoimmune state, MTX therapy)
- CT: Parenchymal airspace opacity within the right lower lobe, appearance highly suggestive of pneumonia. Of note, pulmonary infarction can result in focal infiltrate as well. If there are clinical symptoms that might be suggestive of pulmonary
embolism, further evaluation with CT angiography of the chest be performed.
- continue Rocephin, Doxy, day 2. Obtain sputum culture.
- await ID and Pulm consults
- symptomatic control, prn Tylenol, nebs/inhalers, mucolytics, Codeine syrup
- note cannot have NSAIDS due to MTX therapy per OP [employer] Helper
History of anxiety/depression/bipolar
- Caplyta, clonazepam continued
- Duloxetine continued
- Lamictal continued
History of autoimmune disease, no definitive diagnosis, possibly Lupus per patient but not confirmed
- holding methotrexate
DVT ppx: Lovenox
Code: Full
Anticipated Discharge: 24 - 48 hours
Subjective/Interval History
-
Date of Service: March 19, 2024
reports cough, nonproductive
also has pleuritic chest pain from PNA
no fevers
Objective Data
-
Labs:
Laboratory Results
03/19/24
05:16
WBC 8.6
Hgb 11.8 L
Hct 34.3 L
Plt Count 357 D
Sodium 136
Potassium 3.8
Chloride 104
Carbon Dioxide 24
BUN 10
Creatinine 0.7
Glucose 87
Calcium 9.6
Vital Signs:
Vital Signs
Temp Pulse Resp BP Pulse Ox
97.9 F 85 16 118/70 99
03/19/24 08:25 03/19/24 08:25 03/19/24 08:25 03/19/24 08:25 03/19/24 08:25
I&O
03/18/24 03/19/24 03/20/24
06:59 06:59 06:59
Intake Total 480 / 480
Balance 480 / 480
Physical Exam
-
General: No Apparent Distress
HEENT: Normocephalic and Atraumatic
Respiratory: Crackles (RLL); Negative Wheezes
Cardiac: Regular Rhythm and S1/S2
GI: Soft and Nontender
Genito-urinary: Negative No Costovertebral Tender
Neuro: AO x 3
Hematologic / Lymphatic: No Lymphadenopathy
Psych: Calm
Data Reviewed
-
Total Time Spent with Patient (in minutes): 44
CT Scan: Report Reviewed by me
Labs: Labs Reviewed by me
[2024-03-19 12:29] VITALS: BMI 24.1
[2024-03-19] MEDS: TYLENOL 1000 MG PO ×3 (12:48→21:30)
[2024-03-19] MEDS: ROBITUSSIN DM 10 ML PO (12:48)
--- NOTE | 2024-03-19 15:44 | CON.ID ---
Addendum entered and electronically signed by Yeimi Baez MD 03/19/24 19:55:
I saw and evaluated the patient. I reviewed the resident�s note and agree with findings and plan as documented in the resident�s note with the exceptions/additions in my separately documented note.
Original Note:
Documented by User: Tammi Woody MD, Resident 03/19/24 19:01
Consultation
-
Date/Time Consultation Requested: 03/18/2024 18:36
Requesting Provider: Essie Mathis CRNP
Performing Provider: Yeimi Baez MD
Reason for Consultation: Community Acquired pneumonia
Chief Complaint / Past History
Chief Complaint
Pneumonia
History of Present Illness
49 year old female with history of likely seronegative rheumatoid arthritis on weekly methotrexate, left kidney mass, who presented to the ED with cough, worsening shortness of breath, generalized body aches.
She was first seen at the ED on 03/14 for intermittent productive cough with generalized fatigue and mild headache of 2 to 3-week duration. Chest x-ray revealed right lower lobe infiltrate suggestive of pneumonia. She was evaluated in ED and
discharged with a 10-day course of Augmentin. She presented the next day 03/15 with shortness of breath and dizziness in addition to prior symptoms. She was then switched to doxycycline 100 mg p.o. twice daily for 10 days.
On arrival to ED yesterday (4 days after initial presentation) with worsening symptoms, vitals were stable, respiratory rate 20, physical exam revealed right middle and lower lobe crackles. White count 13.6 with left shift, platelets 464,
creatinine 0.8. CT chest revealed parenchymal airspace opacity within the right lower lobe, appearance highly suggestive of pneumonia.
Infectious disease was consulted to help manage pneumonia.
Past History
Past Medical History: Psychiatric (anxiety, depression, bipolar disorder) and Other (migraines, Iron deficiency anemia, L kidney mass)
Past Surgical History: Orthopedic (Cervical laminectomy)
Allergy History:
morphine Allergy (Verified 03/18/24 15:54)
Nausea / Vomiting
Medications Reviewed: Yes
Social History
Tobacco: Non-Smoker
Personal:
Living: With Family
Family History
Family History: Not Pertinent
Review of Systems
Review of Systems
General: Other (sweats); Negative Fever
Respiratory: Dyspnea and Cough
Vital Signs
Temp Pulse Resp BP Pulse Ox
97.9 F 98 18 118/70 99
03/19/24 08:25 03/19/24 14:01 03/19/24 14:01 03/19/24 08:25 03/19/24 14:01
Physical Exam
Physical Exam
Constitutional: No Acute Distress and Comfortable
Cardiovascular: Regular Rate and S1/S2; Negative Murmur, Rub or Peripheral Edema
Pulmonary: Non Labored and Other (R lower and mid lobe crackles); Negative Wheezes, Rales or Rhonchi
Gastrointestinal: Soft, Non Tender, Non Distended, Normal Bowel Sounds, No Rebound and No Guarding
Genito-Urinary: Negative Campbell, Suprapubic Tenderness or CVA Tenderness
Skin: Warm and Dry
Neurological: Awake, Alert and Other (Answers questions appropriately)
Psychological: Calm
Lines: PIV (x2, intact)
Lab / Diagnostic Study Results
03/19/24 05:16
03/19/24 05:16
Abs Immat Gran (auto) 0.1 10^3/uL (0-0.05) H 03/18/24 16:40
Absolute Neuts (auto) 10.2 10^3/uL (1.4-6.5) H 03/18/24 16:40
Absolute Lymphs (auto) 2.5 10^3/uL (1.2-3.4) 03/18/24 16:40
Absolute Monos (auto) 0.9 10^3/uL (0.1-0.6) H 03/18/24 16:40
Absolute Basos (auto) 0.0 10^3/uL (0-0.2) 03/18/24 16:40
Immature Gran % 0.4 % (0-0.5) 03/18/24 16:40
Neutrophils % 74.6 % (42.2-75.2) 03/18/24 16:40
Lymphocytes % 18.0 % (20.5-51.1) L 03/18/24 16:40
Monocytes % 6.8 % (1.7-9.3) 03/18/24 16:40
Eosinophils % 0.1 % (0-6) 03/18/24 16:40
Basophils % 0.1 % (0-2) 03/18/24 16:40
Microbiology Results
Micro:
03/18/24 16:40 Legionella Urinary Antigen - Final
Urine Negative for Legionella pneumophila Serogroup 1 antigen.
A negative result does not rule out the possiblity of
Legionella infection due to other serogroups or species of
Legionella. Clinical correlation is recommended.
Assessment / Plan
49 F with community acquired RLL pneumonia.
RLL Pneumonia, Community acquired
Likely seronegative rheumatoid arthritis, on weekly Seronegative
- Urine Legionella Antigen - negative
- Chest CT 03/18: Parenchymal airspace opacity within the right lower lobe, appearance highly suggestive of pneumonia.
- Normal O2 sat
- Continues to be afebrile
- WBC normalized
- Blood cultures not recommended, Can obtain sputum cultures if able, ordered patriciapelltaylor
- has responded to ceftriaxone/doxycycline; can switch to cefdinir/doxycycline in the AM to complete a 10 day course 03/14-03/23

Documented by User: Yeimi Baez MD 03/19/24 19:54
Consultation
-
Date/Time Consultation Performed: 03/19/24 16:30
--- NOTE | 2024-03-19 15:55 | CM ---
CM met with pt at bedside
Pt reports she lives in a 2 story town home with her and 13 yo son
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
Has ride home at d/c
DME - none
SNF/HH - no past hx
PCP - Dr Amanda Norwood
Pharm - [facility]
CM will follow for d/c needs
Plan - anticipate home no needs when medically stable
[2024-03-19 16:10] VITALS: BP 124/73
--- NOTE | 2024-03-19 16:19 | W.PN.UPDATE ---
Update Note
Progress Note Update
I personally performed a history and physical exam of the patient and discussed management with the resident. I reviewed the resident's separately documented note and agree with the documented findings and plan of care HPI/CC with the following
additions/corrections
CC: Cough, Short of breath
HPI: Ms Wayne is a 49 year old female with unspecified autoimmune disease (suspected seroneg RA) on mtx 15 mg PO weekly who first presented here 03/14 for cough x2-3 weeks with green sputum, dyspnea on exertion, pleurtic chest pain; she was
given augmentin x10 days. She represented to the ER the next day with progression with headache, dizziness and switched to doxycycline. Still with progressive headache, ongoing cough and represented here 03/18. At that time still reporting no
fevers or chills.
Since arrival here she has been afebrile, bp stable,wbc initially 13 now 8.6, hgb 11.8, plt initially 464 now 357, there was no left shift on arrial, there was minimal lymphocytopenia, cr 0.7, t bili 0.4, ast 34, alt 18, alk phos 60, covid ag neg,
03/18 Ct chest without contrast: RLL pneumonia, 03/14 CXR RLL pneumonia, legionella urine antigen neg, blood cultures not done and not needed from my perspective, resp culture ordered but patient has not provided a sample, currnetly on ceftriaxone and
doxycycline. ID is consulted for assistance with management.
Additional Past Medical History:
Left renal mass
History of pyelonephritis
Anxiety/depression
Bipolar
Migraine
Past Sx Hx: Cervical disc fusion
Tobacco: Non-smoker
Alcohol: None
Drug: None
Allergy: morphine - nausea
Home meds: reviewed
ROS: reviewed 12 point ROS negative except as listed in HPI
Vital Signs
Temp Pulse Resp BP Pulse Ox
98.2 F 96 20 141/74 100
03/18/24 15:52 03/18/24 15:52 03/18/24 15:52 03/18/24 15:52 03/18/24 15:52
Physical Exam
General: No Apparent Distress
Respiratory: Clear to auscultation, no rales/wheezes/ronchi; coughing
Cardiac: S1/S2 and Regular Rhythm; No Murmur or Rub
GI: Soft, Non Tender, Non Distended and Normal Bowel Sounds
Musculoskeletal: No Joint swelling
Skin: No Rash
Labs reviewed
notable in that sputum culture ordered not yet done
A&P
# Right Basilar Pneumonia
- obtain sputum culture if able - ordered acapella
- no need for blood cultures due to low yield in my opinion
- note negative legionella urine antigen
- has responded to ceftriaxone/doxycycline; can switch to cefdinir/doxycycline in the AM to complete a 10 day course 03/14-03/23
# History of autoimmune disease
-On methotrexate weekly, not immunosuppressed from my perspective
[2024-03-19] MEDS: ROCEPHIN 1000 MG IV (17:42)
[2024-03-19] MEDS: LOVENOX 40 MG SC (17:42)
[2024-03-19] MEDS: VIBRAMYCIN 100 MG PO (21:30)
[2024-03-19] MEDS: KLONOPIN 1 MG PO (21:30)
[2024-03-19] MEDS: LAMICTAL 200 MG PO (21:33)
[2024-03-19] MEDS: NON-FORMULARY ITEM 42 MG PO (21:44)
[2024-03-19 23:22] VITALS: BP 125/86
[2024-03-20] MEDS: TESSALON PERLES 200 MG PO (00:06)
[2024-03-20] MEDS: ROBITUSSIN DM 10 ML PO (00:07)
[2024-03-20] MEDS: ROXICODONE 5 MG PO (00:07)
[2024-03-20 05:54] LABS: Hematocrit 35.1 % (37.0-47.0); Hemoglobin 12.1 g/dL (12.0-16.0); Mean Corp Hgb Conc. 34.5 g/dL (33.0-37.0); Mean Corpuscular Hgb 30.5 pg (27.0-31.0); Mean Corpuscular Volume 88.4 fL (81.0-99.0); Mean Platelet Volume 9.4 fL (7.4-10.4); Platelet Count 338 10^3/uL (130-400); Red Blood Cell Count 3.97 10^6/uL (4.20-5.40); Red Cell Dist. Width 14.1 % (11.5-14.5); White Blood Cell Count 8.7 10^3/uL (4.8-10.8)
[2024-03-20 06:24] LABS: Blood Urea Nitrogen 11 mg/dl (7-17); Calcium 9.5 mg/dl (8.4-10.2); Carbon Dioxide 25 mmol/L (22-30); Chloride 100 mmol/L (98-107); Estimated Creatinine Clearance 90 ml/min; Glucose 89 mg/dl (70-99); Potassium 4.2 mmol/L (3.5-5.1); Sodium 135 mmol/L (135-145); eGFR > 60.00
[2024-03-20 07:32] VITALS: BP 97/67
--- NOTE | 2024-03-20 08:03 | W.PN.ID1 ---
Addendum entered and electronically signed by Yeimi Baez MD 03/20/24 13:49:
Reviewed patients chart and plan with resident. Patient discharged prior to me arriving on the floor to do an exam. This note is therefore non-billable.
Yeimi Baez MD
Original Note:
Date of Service
Date of Service: March 20, 2024
Today's Communication
Can convert to Oral Cefdinir/Doxycycline
Encourage acapella device for sputum culture
Assessment / Plan
49 F with community acquired RLL pneumonia.
RLL Pneumonia, community acquired
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 Unlikely immunosuppressed on this regimen
- Urine Legionella Antigen - negative
- Chest CT 03/18: Parenchymal airspace opacity within the right lower lobe, appearance highly suggestive of pneumonia.
- Normal O2 sat
- Continues to be afebrile
- WBC normalized
- Blood cultures not recommended, Can obtain sputum cultures if able, acapella provided
- has responded to ceftriaxone/doxycycline; can switch to cefdinir/doxycycline to complete total effective 10 day course 03/14-03/23
Chief Complaint
-: Pneumonia
Subjective / Review of Systems
Complains of poor sleep overnight due to pleuritic chest pain
Review of Systems: No Fever, Headache and Chest Pain
Vital Signs / Physical Exam
Vital Signs
Vital Signs
Temp Pulse Resp BP Pulse Ox
97.9 F 77 16 97/67 98
03/20/24 07:32 03/20/24 07:32 03/20/24 07:32 03/20/24 07:32 03/20/24 07:32
Physical Exam
Constitutional: No Acute Distress and Comfortable
Cardiovascular: Regular Rate and S1/S2; Negative Murmur, Rub or Peripheral Edema
Pulmonary: Coarse (crackles in R lower and mid lobes); Negative Wheezes, Rales or Rhonchi
Gastrointestinal: Soft, Non Tender, Non Distended, Normal Bowel Sounds, No Rebound and No Guarding
Genito-Urinary: Negative Suprapubic Tenderness or CVA Tenderness
Skin: Warm and Dry
Neurological: Awake, Alert and Other (answers questions appropriately)
Psychological: Calm
Lines: PIV (left cubital fossa)
Objective Data
Lab Data
Lab Results
03/20/24 05:36
03/20/24 05:36
Estimated Creat Clear 90 ml/min 03/20/24 05:36
Total Bilirubin 0.4 mg/dl (0.2-1.3) 03/18/24 16:40
AST 34 U/L (14-36) 03/18/24 16:40
ALT 18 U/L (0-35) 03/18/24 16:40
Alkaline Phosphatase 60 U/L (38-126) 03/18/24 16:40
Most recent labs reviewed.
Micro Results:
03/18/24 16:40 Legionella Urinary Antigen - Final
Urine Negative for Legionella pneumophila Serogroup 1 antigen.
A negative result does not rule out the possiblity of
Legionella infection due to other serogroups or species of
Legionella. Clinical correlation is recommended.
[2024-03-20] MEDS: CYMBALTA DELAYED RELEASE 120 MG PO (08:05)
[2024-03-20] MEDS: KLONOPIN 0.5 MG PO (08:05)
[2024-03-20] MEDS: VIBRAMYCIN 100 MG PO (08:05)
[2024-03-20] MEDS: TYLENOL 1000 MG PO (08:05)
[2024-03-20] MEDS: MUCINEX 600 MG PO (08:05)
[2024-03-20] MEDS: FOLVITE 1 MG PO (08:06)
--- NOTE | 2024-03-20 09:06 | W.PN.PUL3 ---
Today's Communication / Plan
-
continue antibiotics, transition to oral
Incentive spirometry
Will require outpatient pulmonary follow-up. Information Lefton chart
Disposition efforts
Assessment
-
49-year-old female with history of subnephrotic proteinuria, unspecified connective tissue disease on methotrexate, with progressive shortness of breath failed outpatient therapy with antibiotics. We are asked to comment on her right lower lobe
pneumonia
Right lower lobe pneumonia
Failed outpatient therapy with doxycycline/amoxicillin
Crackles on exam
Mild leukocytosis
Conditions present prior to admission
Unspecified connective tissue disease
Follows rheumatology ([facility])
On methotrexate over the last few months, no significant improvement
Subnephrotic proteinuria
Nephrology evaluation negative, no evidence of hematuria
History of renal lesion? Followed at [place], details unclear
9 mm lesion left kidney, stable per imaging compared to September 2023
Family history of breast cancer (mother)
Family history of Crohn's (brother)
Anxiety/depression, bipolar disorder
Plan/recommendations
At this time, patient appears to be improved objectively and subjectively
Chest exam and CT chest consistent with right lower lobe infiltrate
mild leukocytosis noted
Mild crackles right base, seem to be improved
Patient has had nephrology evaluation, no evidence of significant proteinuria/micro scopic hematuria
Cannot identify outpatient rheumatology correspondence
Moving forward
Continue with antibiotics for community-acquired pneumonia
Although patient is on methotrexate, she has only been on this for a few months
Hold methotrexate for now
Continue with antibiotics. ID following
Follow symptoms, exam
Would not pursue any further workup at this time
Given her history of connective tissue disease, need to consider noninfectious process but would not entertain this until she completes course of antibiotic therapy
Sputum culture if able
DVT prophylaxis: Remains on Lovenox
GI prophylaxis: Not indicated
She will require follow-up CT imaging to confirm resolution in the next 1 to 3 months.
Consider outpatient pulmonary follow-up given crackles on exam
Reviewed with patient at length.
Okay for discharge from pulmonary standpoint. Disposition efforts ongoing
Subjective Data
-
Date of Service:
Date of Service: March 20, 2024
Subjective:
Primary complaint is fatigue. Observe patient and length the natural without difficulty. Continues to have cough, dry, no hemoptysis. Describes vague lower chest discomfort, bandlike. Nonpleuritic. Appears to be constant the patient overall
improved since admission
Objective Data
Data Reviewed
Vital Signs / I&O / Oxygen:
Vital Signs
Temp Pulse Resp BP Pulse Ox
97.9 F 77 16 97/67 98
03/20/24 07:32 03/20/24 07:32 03/20/24 07:32 03/20/24 07:32 03/20/24 07:32
Intake and Output
03/19/24 03/20/24 03/21/24
06:59 06:59 06:59
Intake Total 480 / 480 1140 / 1140
Balance 480 / 480 1140 / 1140
SaO2 98
Physical Exam
General: Comfortable
HEENT: Normocephalic and Anicteric
Cardiovascular: S1-S2, Regular Rhythm and Murmur (n)
Respiratory: Wheeze (n), Crackles (few right basilar), Rhonchi and Non-Labored Respirations
GI: Soft, Non Distended and Non Tender
Neurology: Awake, Alert and No Motor Deficits
Skin: Cyanosis (n), Jaundice (n) and Rash (n)
Labs/Micro/Reports
Lab Data
03/20/24 05:36
03/20/24 05:36
Microbiology
03/18/24 16:40 Urine Legionella Urinary Antigen - Final
Negative for Legionella pneumophila Serogroup 1 antigen.
A negative result does not rule out the possiblity of
Legionella infection due to other serogroups or species of
Legionella. Clinical correlation is recommended.
[2024-03-20 09:33] VITALS: BP 136/91
--- NOTE | 2024-03-20 09:40 | PN.CDI ---
CDI
- -
CDI:
Physician Documentation Request
Admit Date: 03/18/24 19:10
Dear Doctor Nubia,
Please review the following and provide your response in the progress notes.
Clinical Indicators:
Pt admitted with Right basilar pneumonia /Immunocompromised
Progress note 03/19, ' Right basilar pneumonia no improvement with Augmentin, doxy outpatient WBC elevated, immunocompromised condition (autoimmune state, MTX therapy)..'
Per ID ,' ...ceftriaxone/doxycycline; can switch to cefdinir/doxycycline in the AM to complete a 10 day course 03/14-03/23...'
On Admission WBC 13,.6 HR 96
Please clarify which of the following most accurately describes the status of the patient's infection:
Sepsis-POA
- Systemic manifestations of infection, with 2 or more SIRS criteria which include:
- Fever >100.4 degrees F or hypothermia < 96.8 degrees F
- Leukocytosis - WBC > 12,000 or leukopenia - WBC < 4,000 or > 10% bands
- Tachycardia > 90 beats per minute
- Tachypnea - RR > 20 breaths per minute or PaCO2 , 32mmHg
Source: Merck Manual 2013
Pneumonia Only , Without Systemic Illness
Other ( please specify)
Use of terms such as suspected, likely, concern for, or probable (associated with a specific diagnosis that is being evaluated, monitored, or treated as if it exists) are acceptable and can be coded in the inpatient setting, when documented at the
time of discharge.
Thank you,
Sindy Riley RN
CDI Specialist
[place] text
Please use your independent medical judgment in providing your response.
--- NOTE | 2024-03-20 10:14 | W.PN.HOSP.TC ---
Today's Communication/Plan
-
dc to home
Assessment / Plan
Assessment / Plan
Assessment:
Sepsis POA (tachycardia >90, Leukocytosis)
Right basilar pneumonia
- no improvement with Augmentin, doxy monotherapy outpatient
- WBC elevated, immunocompromised condition (autoimmune state, MTX therapy)
- CT: Parenchymal airspace opacity within the right lower lobe, appearance highly suggestive of pneumonia. Of note, pulmonary infarction can result in focal infiltrate as well. If there are clinical symptoms that might be suggestive of pulmonary
embolism, further evaluation with CT angiography of the chest be performed.
- dc on Cefdinir/Doxy x 10 days total. Has Doxy at home from prior script.
- symptomatic control, prn Tylenol, nebs/inhalers, mucolytics, Codeine syrup
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
- DC with OP Pulm f/u
History of anxiety/depression/bipolar
- Caplyta, clonazepam continued
- Duloxetine continued
- Lamictal continued
History of autoimmune disease, no definitive diagnosis, possibly Lupus per patient but not confirmed
- holding methotrexate
DVT ppx: Lovenox
Code: Full
More than 30 minutes spent in discharge including
Final examination of the patient
Summarizing hospital stay
Instructions for continuing care to all relevant caregivers
Preparation of discharge records, prescriptions, and referral forms
Total time spent (in minutes): 42
Anticipated Discharge: Today
Subjective/Interval History
-
Date of Service: March 20, 2024
cough improving; remains mostly nonproductive
no fevers
ongoing pleuritic pain
Objective Data
-
Labs:
Laboratory Results
03/20/24
05:36
WBC 8.7
Hgb 12.1
Hct 35.1 L
Plt Count 338
Sodium 135
Potassium 4.2
Chloride 100
Carbon Dioxide 25
BUN 11
Creatinine 0.8
Glucose 89
Calcium 9.5
Vital Signs:
Vital Signs
Temp Pulse Resp BP Pulse Ox
97.9 F 77 16 136/91 98
03/20/24 07:32 03/20/24 07:32 03/20/24 07:32 03/20/24 09:33 03/20/24 07:32
I&O
03/19/24 03/20/24 03/21/24
06:59 06:59 06:59
Intake Total 480 / 480 1140 / 1140
Balance 480 / 480 1140 / 1140
Physical Exam
-
General: No Apparent Distress
HEENT: Normocephalic and Atraumatic
Respiratory: Negative Wheezes
Cardiac: Regular Rhythm and S1/S2
GI: Soft
Genito-urinary: No Costovertebral Tender
Neuro: AO x 3
Data Reviewed
-
Total Time Spent with Patient (in minutes): 41
Labs: Labs Reviewed by me
--- NOTE | 2024-03-20 11:24 | W.DS.TRANS ---
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
-
Discharge Instructions:
Discharge Diagnosis/Procedures community acquired pneumonia
Diet Regular
Activity As tolerated
Bathing Restrictions None
Instructions:
Stand-Alone Forms:
Changes to Home Medications: No
Discharge Medications:
DC Medications w/original date entered in [employer] [facility]
lamotrigine 200 mg tablet (Lamictal) 200 mg PO HS Mental Health/Anxiety 12/19/19
duloxetine 60 mg capsule,delayed release (Cymbalta) 120 mg PO DAILY Mental Health/Anxiety 11/23/22
lumateperone 42 mg capsule (Caplyta) 42 mg PO HS Mental Health/Anxiety 11/23/22
clonazepam 0.5 mg tablet 0.5 mg PO DAILY Mental Health/Anxiety 09/05/23
clonazepam 0.5 mg tablet 1 mg PO HS Mental Health/Anxiety 09/05/23
drospirenone 3 mg-ethinyl estradiol 0.03 mg tablet 1 tab PO DAILY Hormonal Agent 09/05/23
oxycodone 5 mg tablet 5 mg PO Q4HPRN PRN severe pains 09/05/23
doxycycline hyclate 100 mg capsule 100 mg PO BID Respiratory issues #19 caps 03/15/24
acetaminophen 120 mg-codeine 12 mg/5 mL oral solution 5 ml PO Q8HPRN PRN Cough 03/18/24
albuterol sulfate 90 mcg/actuation aerosol inhaler 2 puff inhalation R Q6HPRN PRN shortness of breath or wheezing 03/18/24
clonazepam 0.5 mg tablet 0.5 mg PO BIDPRN PRN anxiety 03/18/24
folic acid 1 mg tablet 1 mg PO DAILY Supplement 03/18/24
methotrexate sodium 2.5 mg tablet 15 mg PO SA Autoimmune Disorder 03/18/24
acetaminophen 325 mg tablet 650 mg (2 x 325 mg) PO Q4HPRN PRN if temp > 101 F #100 tabs 03/20/24
benzonatate 100 mg capsule 200 mg (2 x 100 mg) PO TIDPRN PRN COUGH #21 caps 03/20/24
cefdinir 300 mg capsule 300 mg PO Q12 #20 caps 03/20/24
guaifenesin 600 mg tablet, extended release 12 hr 600 mg PO Q12 #30 tabs 03/20/24
Home Medication Changes
Pending Results: No
Total time spent discharging patient (in min): 42
--- NOTE | 2024-03-20 11:56 | CM ---
Case management following for discharge planning
Pt for discharge today
Has ride home with
Plan - anticipate home no needs
== END 2024-03-20 12:34 | disposition home or self-care (01) | DRG 871 ==
LOC: 3 WEST ACU 19:10
PROVIDERS: Physician Assistant Medical; Registered Nurse; ADMITTING PHYSICIAN Internal Medicine; EMERGENCY PHYSICIAN Emergency Medicine; FAMILY PHYSICIAN Student in an Organized Health Care Education/Training Program; OTHER PHYSICIAN Internal Medicine Critical Care Medicine; OTHER PHYSICIAN Student in an Organized Health Care Education/Training Program
DX: A41.9 Sepsis, unspecified organism (principal); J18.9 Pneumonia, unspecified organism; D84.821 Immunodeficiency due to drugs; F31.9 Bipolar disorder, unspecified; F41.9 Anxiety disorder, unspecified; D50.9 Iron deficiency anemia, unspecified; D89.89 Other specified disorders involving the immune mechanism, not elsewhere classified; G43.909 Migraine, unspecified, not intractable, without status migrainosus; R80.9 Proteinuria, unspecified; M06.00 Rheumatoid arthritis without rheumatoid factor, unspecified site; Z79.899 Other long term (current) drug therapy; Z88.5 Allergy status to narcotic agent; Z79.631 Long term (current) use of antimetabolite agent; Z87.891 Personal history of nicotine dependence; Z87.01 Personal history of pneumonia (recurrent)
CPT/HCPCS: 71250; 80048; 80053; 85025; 85027; 87449; 87811; 93005; 94640; 96374; 99285

== ENCOUNTER → 2024-06-08 16:56 | Outpatient (REF) | payer OTHER, SELFPAY | LOC: UCDH 16:56 | PROVIDERS: ATTENDING PHYSICIAN Physician Assistant Medical; FAMILY PHYSICIAN Student in an Organized Health Care Education/Training Program | DX: J06.9 Acute upper respiratory infection, unspecified (principal) | CPT/HCPCS: 71046 ==

== ENCOUNTER → 2024-07-17 07:02 | Outpatient (REF) | payer OTHER, SELFPAY | LOC: DHCBC/DCA 07:02 | PROVIDERS: ATTENDING PHYSICIAN Student in an Organized Health Care Education/Training Program | DX: R06.09 Other forms of dyspnea (principal) | CPT/HCPCS: 78452; 93017; A9500; J2785 ==

== ENCOUNTER → 2024-07-17 15:56 | Outpatient (REF) | payer OTHER, SELFPAY | LOC: RAD 15:56 | PROVIDERS: ATTENDING PHYSICIAN Student in an Organized Health Care Education/Training Program | DX: R06.09 Other forms of dyspnea (principal) | CPT/HCPCS: 71275; Q9967 ==

== ENCOUNTER → 2024-08-24 10:12 | Outpatient (REF) | payer OTHER, SELFPAY | LOC: RAD 10:12 | PROVIDERS: ATTENDING PHYSICIAN Student in an Organized Health Care Education/Training Program | DX: R05.1 Acute cough (principal); Z87.01 Personal history of pneumonia (recurrent) | CPT/HCPCS: 71046 ==

== ENCOUNTER 2024-08-26 04:01 | Observation (INO) | payer OTHER, SELFPAY ==
[2024-08-25 22:23] VITALS: BP 139/104
[2024-08-25 23:19] VITALS: BMI 24.4
[2024-08-25 23:21] VITALS: BP 131/81
--- NOTE | 2024-08-25 23:34 | ED.GENMED ---
History of Present Illness
General
Chief Complaint: Breathing Problem
Source: patient
Exam Limitations: none
Time Seen by Provider: 08/25/24 23:12
History of Present Illness
History of Present Illness:
Pleasant 49-year-old female presents to the emergency department with worsening shortness of breath, fatigue, and painful inspiration. She states that she was seen by her primary care provider over the weekend and ordered a chest x-ray. When the
results showed up pneumonia, patient was started on Augmentin. Patient states that her symptoms have worsened since yesterday. Patient is concerned because over the summer she was diagnosed with pneumonia and admitted here for 3 days. She was
discharged to home and went back to another hospital that day and was admitted for 3 weeks. She states that her symptoms now feel worse than anything at that time. Patient denies chest pain or abdominal pain.
Past History
Past History
ED Past Medical History: Psychiatric (Bipolar, Anxiety, depression) and Other (Back and neck pain, Dizziness, Headaches, Migraines, Numbness in arms and legs, Pyelonephritis, Iron -def anemia, PNA, )
ED Past Surgical History: Orthopedic (Cervical laminectomy anterior approach)
Social History
Tobacco: Non-smoker
Alcohol: None
Drug: None
Personal:
Living: with family
Employment: Employed
Family History
Family History: Other (Reviewed and noncontributory)
Phy Exam
General Physical Exam
General Presentation: well appearing and no apparent distress
General Skin: warm and dry
General Habitus: normal
General Mental: alert
General Hydration: appears well hydrated
ENT Exam
ENT Exam: EOMI, pharynx normal, neck supple and normocephalic
Eye Exam
Eye Exam: PERRL, cornea clear and conjunctiva normal
Cardiovascular Exam
Cardiovascular Exam: regular rate/rhythm, no edema, no murmur and normal peripheral pulses
Pulmonary Exam
Pulmonary Exam: lungs clear, no respiratory distress, no rales, no crackles, no rhonchi, no stridor, no wheezing and no cough
Cough: non productive cough
Respirations: mild increase in effort
Breath Sounds: Wheeze: left lower
Gastrointestinal Exam
Gastrointestinal Exam: normal bowel sounds, non tender, soft, no organomegaly, no pulsatile mass and non distended
Neurological Exam
Neurological Exam: alert, oriented x3, no motor deficits and speech normal
Musculoskeletal Exam
Musculoskeletal Exam: full ROM and no edema
Skin Exam
Skin Exam: normal color, warm/dry, no rash and no petechia
Psychiatric Exam
Psychiatric Exam: normal mood/affect
Scores
Heart Failure Risk
Heart Failure Risk Score: Not Applicable
Course
Orders/Labs/Results
Orders:
Orders
08/25/24 23:26
Electrocardiogram (*1) Urgent
Reason for Study: Chest Pain
EKG- Treatment ONCE
08/25/24 23:36
Test Result ONCE
08/25/24 23:58
COVID-19 Antigen Urgent
Source: Nasal Swab
Complete Blood Count/With Diff Urgent
Comprehensive Metabolic Panel Urgent
HCG, Serum Qualitative Screen Urgent
Lactic Acid Q4H
Comment: CANCEL 2nd LACTIC ACID IF 1st LACTIC ACID IS LESS THAN 2
NT-proBNP Urgent
Procalcitonin Urgent
PCT Algorithmm Indication: Respiratory
Prothrombin Time Urgent
Troponin I Urgent
Blood Culture Q30M
JENN Source: Blood/Venous
Specimen Description:
Influenza A+B Rapid Molecular Urgent
JENN Source: Nasal Swab
Specimen Description:
08/26/24 00:15
Blood Culture Q30M
JENN Source: Blood/Venous
Specimen Description:
08/26/24 00:45
CT Chest PE Study Urgent
Reason For Exam: Worsening dyspnea. dx of pneumona symptoms worse
08/26/24 02:14
Zosyn 4.5 grams IVPB NOW Piperacillin/Tazo 4.5 Gram [Zosyn] 4.5 gram in 100 ml IV NOW
08/26/24 03:45
Lactic Acid Q4H
Comment: CANCEL 2nd LACTIC ACID IF 1st LACTIC ACID IS LESS THAN 2
Abnormal Lab Results
08/25/24
23:58
WBC 11.8 H 10^3/uL
(4.8-10.8)
RBC 4.03 L 10^6/uL
(4.20-5.40)
Hgb 11.7 L g/dL
(12.0-16.0)
Hct 35.1 L %
(37.0-47.0)
Abs Immat Gran (auto) 0.2 H 10^3/uL
(0-0.05)
Absolute Neuts (auto) 7.8 H 10^3/uL
(1.4-6.5)
Absolute Monos (auto) 1.1 H 10^3/uL
(0.1-0.6)
Immature Gran % 1.5 H %
(0-0.5)
Chloride 97 L mmol/L
(98-107)
BUN 4 L mg/dl
(7-17)
08/25/24 23:58
08/25/24 23:58
Vital Signs
Initial and Last Documented VS:
Initial Vital Signs
Temp Pulse Resp BP Pulse Ox
98.3 F 96 18 139/104 99
08/25/24 22:23 08/25/24 22:23 08/25/24 22:23 08/25/24 22:23 08/25/24 22:23
Last Documented Vital Signs
Temp Pulse Resp BP Pulse Ox
98.3 F 83 20 123/83 98
08/25/24 22:23 08/26/24 00:18 08/26/24 00:18 08/26/24 00:17 08/25/24 23:30
*Pulse Oximetry
Patient hypoxic: no
*Critical Care Note
Total Time (30-74mins, 75-104mins- exclusive of procedures): Not Applicable
Update Note
Update Note:
CTA CHEST
IMPRESSION:
1. Adequate technical study. No acute pulmonary embolism.
2. No thoracic aortic aneurysm or acute aortic dissection. Groundglass opacities within the lingula and left lower lobe, compatible with infection under aspiration.
Incidentals:
- No acute osseous abnormality.
- No acute abnormality within the visualized abdomen.
- No thoracic lymphadenopathy or suspicious lymph nodes.
Case finalized on Aug 26 2024 1:11AM ET
Discussed CT scan findings with patient. She still wishes to be admitted stating that in she was discharged prematurely and welled up going back to the ER and being admitted for over 3 weeks '. Given that she has a pneumonia and
respiratory distress even though she took 2 days of antibiotics, patient to be brought in for observation.
ED Attending Note
-
Portions of this chart may have been created with voice recognition software.� Occasional wrong word or��sound alike� substitutions may have occurred due to the inherent limitations of voice recognition software.
Discharge Plan
Departure
Patient Disposition: Admit
Date of Disposition: 08/26/24
Time of Disposition: 02:14
Admit to: Telemetry
Presentation/result/management discussed w/ accepting MD/DO: Hospitalist
Discharge Problem:
Pneumonia
Prescriptions:
No Action
lamotrigine [Lamictal] 200 MG tablet
200 mg PO HS
duloxetine [Cymbalta] 60 mg Capsule,Delayed Release(Dr/Ec)
120 mg PO DAILY
Caplyta 42 mg Capsule
42 mg PO HS
clonazepam 0.5 mg Tablet
0.5 mg PO DAILY
clonazepam 0.5 mg Tablet
1 mg PO HS
drospirenone-ethinyl estradiol 3-0.03 mg Tablet
1 tab PO DAILY
oxycodone 5 mg tablet
5 mg PO Q4HPRN PRN (Reason: severe pains)
doxycycline hyclate 100 mg capsule
100 mg PO BID Qty: 19 0RF
Patient Comments:
03/18/24: filled 03/15/24 for 10 days
clonazepam 0.5 mg Tablet
0.5 mg PO BIDPRN PRN (Reason: anxiety)
methotrexate sodium 2.5 mg Tablet
15 mg PO SA
folic acid 1 mg Tablet
1 mg PO DAILY
acetaminophen-codeine 120-12 mg/5 mL solution
5 ml PO Q8HPRN PRN (Reason: Cough)
albuterol sulfate 90 mcg/actuation HFA aerosol inhaler
2 puff inhalation R Q6HPRN PRN (Reason: shortness of breath or wheezing)
acetaminophen 325 mg Tablet
650 mg PO Q4HPRN PRN (Reason: if temp > 101 F) Qty: 100 0RF
benzonatate 100 mg Capsule
200 mg PO TIDPRN PRN (Reason: COUGH) Qty: 21 0RF
cefdinir 300 mg Capsule
300 mg PO Q12 Qty: 20 0RF
guaifenesin 600 mg Tablet Extended Release 12hr
600 mg PO Q12 Qty: 30 0RF
Referrals:
Amanda Norwood MD [Family Provider] -
Interventions
Interventions:
*Risk Screen - Suicide Last Done: 08/25/24 22:23
*General Assessment Last Done: 08/25/24 22:23
*Neglect/Abuse Screening Last Done: 08/25/24 22:23
ED- Fall Risk Assessment Last Done: 08/25/24 23:22
*ED COVID-19 Vaccine History Last Done: 08/25/24 22:23
ED- Cardiac Assessment Last Done: 08/25/24 23:22
ED- Pulmonary Assessment Last Done: 08/25/24 23:22
Discharge Date and Time
Print Language: CUBAN
[2024-08-26] VITALS (12 sets, daily range): BP systolic 111–130; BP diastolic 68–87
[2024-08-26 00:40] LABS: INR 1.05
[2024-08-26 00:43] LABS: % Basophils 0.1 % (0-2); % Immature Granulocytes 1.5 % (0-0.5); % Lymphocytes 23.4 % (20.5-51.1); Absolute Immature Granulocytes 0.2 10^3/uL (0-0.05); Absolute Lymphocytes 2.8 10^3/uL (1.2-3.4); Absolute Monocytes 1.1 10^3/uL (0.1-0.6); Absolute Neutrophils 7.8 10^3/uL (1.4-6.5); Hematocrit 35.1 % (37.0-47.0); Hemoglobin 11.7 g/dL (12.0-16.0); Mean Corp Hgb Conc. 33.3 g/dL (33.0-37.0); Mean Corpuscular Volume 87.1 fL (81.0-99.0); Mean Platelet Volume 10.3 fL (7.4-10.4); Nucleated Red Blood Cells % 0 %; Platelet Count 321 10^3/uL (130-400); Red Blood Cell Count 4.03 10^6/uL (4.20-5.40); Red Cell Dist. Width 13.5 % (11.5-14.5); White Blood Cell Count 11.8 10^3/uL (4.8-10.8)
[2024-08-26 00:44] LABS: HCG, Serum Qualitative Screen Negative
[2024-08-26 00:45] LABS: ALT (SGPT) 13 U/L (0-35); AST (SGOT) 21 U/L (14-36); Alkaline Phosphatase 55 U/L (38-126); Blood Urea Nitrogen 4 mg/dl (7-17); COVID-19 Antigen Negative (Negative); Calcium 9.5 mg/dl (8.4-10.2); Carbon Dioxide 30 mmol/L (22-30); Chloride 97 mmol/L (98-107); Estimated Creatinine Clearance 103 ml/min; Glucose 84 mg/dl (70-99); Sodium 135 mmol/L (135-145); Total Bilirubin 0.3 mg/dl (0.2-1.3); Total Protein 6.7 g/dl (6.3-8.2); eGFR > 60.00
[2024-08-26 00:51] LABS: Lactic Acid 0.9 mmol/L (0.7-2.0)
[2024-08-26 01:55] LABS: Procalcitonin < 0.05 ng/ml (0.0-0.25)
[2024-08-26 01:57] LABS: NT-proBNP 39.6 pg/ml; Troponin I < 0.012 ng/ml
--- NOTE | 2024-08-26 02:09 | DOWNTIME ---
There was a [facility] Client Clinical Laboratory Director Downtime on 08/26/2024 from 0100 to 08/26/2024 at 0205 . Downtime documentation of patient's care, including medication administrations, has been reconciled in the electronic record per guidelines. Refer to the
patient's paper chart under the miscellaneous tab to see printed paper medication records and downtime forms.
[2024-08-26] MEDS: ZOSYN 100 IV (02:37)
--- NOTE | 2024-08-26 03:22 | HPS.HSE ---
Family Physician
-
Family Physician: Amanda Norwood MD
Chief Complaint
-
Shortness of breath
History of Present Illness
This is a 49-year-old female with a past medical history significant for bipolar, seronegative rheumatoid arthritis, migraines, and was admitted to the hospital in March last year for pneumonia presents emergency department with respiratory
symptoms for about 5 days with concern for pneumonia.
Patient was last admitted to the hospital here in March for pneumonia. He was admitted for 2 days and then sent home only to be admitted to an outside hospital for several days (reported to have been as long as 30 days) for severe pneumonia.
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 She then had chest congestion and some cough. She has some shortness of breath. She had fatigue and some lethargy and aches and pains. She rested on Saturday and
then on Saturday her symptoms persisted so she called her PMD. PMD noted that her symptoms could be related to pneumonia similar to the prior episode and she was started on azithromycin and requested to get x-ray. She tells me that the x-ray on
Saturday showed a pneumonia, radiologist read shows small patchy lingular opacity concerning for pneumonia. Patient was started on Augmentin on Saturday. She continues to feel ill and decided come to the emergency department on evening. She
also reports pleuritic type left-sided chest pain sharp stabbing and radiating to the left shoulder. She reports mild dyspnea on exertion.
In the emergency department here he was well-appearing, afebrile and hemodynamically stable with a blood pressure of 190/83 and satting at 98% on room air. ECG was nonischemic, troponin was negative, BNP was negative, COVID test was negative, she
had a white count of 11.8 hemoglobin 11.7 and a plate count of 321, electrolytes BUN/creatinine were all within the normal range.
Chest CT with PE protocol was negative for any pulmonary embolus did show groundglass opacities in the lingula and left lower lobe.
Medical History
Past Medical History
Past Medical History: Reports Psychiatric (bipolar d/o) and Other (Seronegative rheumatoid arthritis)
Additional Past Medical History:
Migraine
Urinary tract infection
Past Surgical History: Reports Other
Social History
Tobacco: Non-smoker
Alcohol: None
Drug: None
Personal:
Living: With Family
Employment: Employed
Family History
Family History: Not pertinent
Allergies / Home Medications
Allergies reflects when Allergies were last updated in [employer]
Home Medications with original date entered in [employer]
Allergy/Medication List:
Allergies
Allergy/AdvReac Type Severity Reaction Status Date / Time
morphine Allergy Nausea / Verified 08/25/24 22:26
Vomiting
Home Medications
LaMICtal 200 MG 1 tablet Orally Once a Day 300mh Active
Acetaminophen 325 MG 2 tablet as needed Orally every 4 hrs PRN Mar, Not-Taking/PRN
Cymbalta 60 MG 1 capsule Orally Twice a day Active
Albuterol Sulfate HFA 108 (90 Base) MCG/ACT 1 puff as needed Inhalation every 4 hrs as needed for cough or chest tightness for 30 days Aug, Active
Caplyta 42 MG 1 capsule Orally Once a day Active Azithromycin 250 MG 2 tabs on day on and one tab daily for 4 days. Orally daily for 5 days Aug, Aug, Active
oxyCODONE HCl 5 MG 1 tablet as needed Orally Twice a Day as needed for severe pain for 14 days Jul, Not-Taking/PRN
Patria 28 3-0.03 MG 1 tablet Orally Once a day Active
clonazePAM 0.5 MG 1 tablet Orally Twice a Day Active
Review of Systems
-
History Source: Patient
Constitutional: Reports Fatigue
EENT: Reports No Symptoms
Respiratory: Reports Cough and Trouble Breathing
Cardiac: Reports Chest Pain
Abdomen/GI: Reports No Symptoms
: Reports No Symptoms
Musculoskeletal: Reports No Symptoms
Skin: Reports No Symptoms
Neurological: Reports No Symptoms
Endocrine: Reports No Symptoms
Hematologic/Lymphatic: Reports No Symptoms
Psych: Reports No Symptoms
Physical Exam
Vital Signs
Vital Signs
Temp Pulse Resp BP Pulse Ox
98.3 F 83 20 123/83 98
08/25/24 22:23 08/26/24 00:18 08/26/24 00:18 08/26/24 00:17 08/25/24 23:30
Physical Exam
General: Well Developed, Well Nourished, No Apparent Distress and Comfortable
HEENT: NormoCephalic, Anicteric, Moist mucous membranes and Atraumatic
Respiratory: Clear
Cardiac: S1/S2 and Regular Rhythm
Breast: Deferred by me
GI: Soft, Non Tender, Non Distended and Normal Bowel Sounds
Rectal: Deferred by Provider
Genito-urinary: Deferred by me
Musculoskeletal: No Clubbing, No Cyanosis and No Edema
Skin: Warm
Neuro: AO x 3 and Nonfocal/grossly intact
Hematologic/Lymphatic: No Lymphadenopathy
Psych: Calm
Laboratory Results
-
08/25/24 23:58
08/25/24 23:58
Laboratory Results
PT 14.0 Sec (11.4-14.6) 08/25/24 23:58
INR 1.05 08/25/24 23:58
Lactic Acid 0.9 mmol/L (0.7-2.0) 08/25/24 23:58
Total Bilirubin 0.3 mg/dl (0.2-1.3) 08/25/24 23:58
AST 21 U/L (14-36) 08/25/24 23:58
ALT 13 U/L (0-35) 08/25/24 23:58
Alkaline Phosphatase 55 U/L (38-126) 08/25/24 23:58
Troponin I < 0.012 ng/ml 08/25/24 23:58
Data Reviewed
-
CT Scan: Report Reviewed by me
Medical Tests (Nuc Med, Echo, EKG etc): Image Personally Visualized and interpreted
Lab Data: Labs Reviewed by me
Old Records: Reviewed
Impression/Plan
-
IMPRESSION:
This is a 49-year-old female with past medical history significant for seronegative rheumatoid arthritis previously methotrexate now off any immunosuppressants, bipolar disorder and prior history of severe pneumonia last year PRESENTS emergency
department with 5 days of worsening cough and shortness of breath and diagnosed with COVID lingular pneumonia on x-ray 3 days ago, found to have multifocal infiltrates in the lingula and left lower lobe today. She is not on oxygen hemodynamically
stable and afebrile with mild leukocytosis. Cardiac workup was negative. No evidence of PE on CT angiogram.
PLAN:
Multifocal pneumonia-patient with multifocal pneumonia, history of severe episode of pneumonia last year and very anxious due to this. She has been on azithromycin and Augmentin since . No oxygen requirement hemodynamically stable and in
no acute distress except for some pleurisy. Reassuring vitals, exam and labs.
- admit to med/surg observation
- check legionella ag,
- ceftriaxone/doxy for now (no known h/o mrsa or pseuodmonas)
- pain control, nebs and incentive spirometry
- broaden abx if worsening symptoms.
- continue home medications
DVT PPX - lovenox sq
Code status full code.
[2024-08-26] MEDS: STERILE WATER FOR INJECTION 10 ML IV (09:23)
[2024-08-26] MEDS: ROCEPHIN 1000 MG IV (09:23)
[2024-08-26] MEDS: VIBRAMYCIN 100 MG PO ×2 (09:23→19:21)
[2024-08-26] MEDS: CYMBALTA DELAYED RELEASE 60 MG PO ×2 (09:43→10:36)
--- NOTE | 2024-08-26 09:47 | CM ---
Patient seen at bedside with physician. Patient states that she lives with her and son - aged 13. Patient states that they live in a 2 story home. Patient stated that her PCP is Dr. Bland and she uses the [facility] on [facility].
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 Patient was admitted as OBS, per Physician status changed to INP. Pending consult for ID per physician. CM will continue to follow for discharge
planning needs.
Plan; home with no needs; watch for VN needs
--- NOTE | 2024-08-26 09:50 | W.PN.HOSP.TC ---
Addendum entered and electronically signed by Alena Pantoja MD 08/26/24 15:58:
spoke to Dr. Norwood, pt PCP--pt had negative CTA in July so pna previously on right side did clear--now findings on left side--new
Original Note:
Today's Communication/Plan
-
consult ID
change to inpt
for now cont rocephin/doxy
Assessment / Plan
Assessment / Plan
pt is a 49 year old female
multifocal pna--unclear if residual from March OR new findings--pt breathy when she talks but no O2 requirements--has been on Z-kris, Augmentin recently PLUS whatever she was on in March--consult ID--for now cont rocephin/doxy--may need to check
immunoglobulin levels?--will defer to ID--hold on pulm consult for now--neg legionella urinary antigen--flu and Covid neg
bipolar -- cont cymbalta, lamictal, caplyta, clonazepam
seronegative RA--noted--cont oxycodone
DVT proph
code status--FULL CODE
Anticipated Discharge: > 48 hours
Subjective/Interval History
-
Date of Service: August 26, 2024
pt feeling unwell, coughing
Objective Data
-
Labs:
Laboratory Results
08/25/24
23:58
WBC 11.8 H
Hgb 11.7 L
Hct 35.1 L
Plt Count 321
PT 14.0
INR 1.05
Sodium 135
Potassium 4.0
Chloride 97 L
Carbon Dioxide 30
BUN 4 L
Creatinine 0.7
Glucose 84
Calcium 9.5
Total Bilirubin 0.3
AST 21
ALT 13
Alkaline Phosphatase 55
Vital Signs:
max temp for 24 hours
08/25/24
22:23
Temp 98.3 F
Vital Signs
Temp Pulse Resp BP Pulse Ox
98.1 F 93 12 122/74 98
08/26/24 07:16 08/26/24 07:04 08/26/24 06:45 08/26/24 07:04 08/26/24 06:45
Review of Systems
-
All other systems: Reviewed and negative
Respiratory: Reports Cough and Trouble Breathing
Physical Exam
-
General: Well Developed, Well Nourished and No Apparent Distress
HEENT: Normocephalic and Atraumatic; Negative Oxygen
Respiratory: Rhonchi (all lung rodriguez)
Cardiac: Regular Rhythm and S1/S2; Negative Murmur
GI: Soft, Nontender, Nondistended and Normal Bowel Sounds
Musculoskeletal: No Clubbing, No Cyanosis and No Edema
Skin: Warm
Neuro: Awake
Psych: Calm
--- NOTE | 2024-08-26 13:44 | CON.ID ---
Consultation
-
Date/Time Consultation Requested: August 26, 2024 0949
Date/Time Consultation Performed: August 26, 2024 1345
Requesting Provider: Dr. Alena Pantoja
Performing Provider: Dr. Dayami Hernandes
Reason for Consultation: Ongoing multifocal pneumonia
Chief Complaint / Past History
Chief Complaint
Cough, SOB
History of Present Illness
49-year-old female with history of bipolar disorder, possible unspecified connective tissue disorder, who presented to the hospital August 25 due to worsening dyspnea on exertion, burning chest pain, and nonproductive cough. Patient's symptoms
started in March 2024 when she had severe cough, shortness of breath, head congestion for which she presented to [place] [facility] twice and did not improve on outpatient antibiotics. She was then hospitalized at [facility] in March 18 to
with chest x-ray showing right lower lobe opacity. She was discharged on cefdinir plus doxycycline to complete 10 days. She was also instructed to stop the methotrexate (started in 12/2023). She did not improve and was then admitted to
[facility] x 4 days. She was on IV antibiotics then transitioned to different oral antibiotics. However no improvement. She was re-admitted to [facility] and stayed for 3 days. She states HIV screen was
negative. Subsequently the cough improved but never resolved. She continues to have residual shortness of breath especially with activity. She has difficulty going up 1 flight of stairs without getting short of breath. She continues to have
rhinorrhea/head congestion. Approximately 2 weeks ago she developed mild subjective fever then last week had worsening shortness of breath and nonproductive cough. Her PCP prescribed Z-Jc on August 22. August 24 chest x-ray showed small
patchy lingular opacity. Her PCP added Augmentin. Patient did not improve and therefore she came to the ER last night. She is afebrile. Chest CT No PE, there is nonspecific ground-glass opacity in the left lower lobe lingula. Procalcitonin
negative. She is currently on ceftriaxone and doxycycline. 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 No other ill contacts. No travel history. No new medicines or any changes over the past year. Denies dysphagia or aspiration. No history of GERD.She
complains of burning sensation across her chest. No weight loss. Cardiac workup was negative.
Past History
Additional Past Medical History:
Unspecified connective tissue disorder, not on tx
Bipolar disorder
Anxiety/depression
Migraine
Cervical laminectomy
Allergy History:
morphine Allergy (Verified 08/25/24 22:26)
Nausea / Vomiting
Medications Reviewed: Yes
Current Antibiotics:
Ceftriaxone
Doxycycline
Social History
Tobacco: Former Smoker
Alcohol: None
Drug: None
Personal:
Living: With Family
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
Family History
Family History: Not Pertinent
Review of Systems
Review of Systems
General: Negative Change in Appetite
HEENT: Negative Lymphadenopathy, Stiff Neck, Headache or Pharyngitis
Cardiovascular: Chest Pain
Respiratory: Dyspnea and Cough; Negative Hemoptysis or Sputum Production
Gasteroenterology: Negative Nausea, Vomiting or Diarrhea
Genital / Urological: Negative Dysuria or Flank Pain
Endocrine: Negative Weakness
Musculoskeletal: Joint Pain (ankles, hands)
Skin / Hair / Nails: Negative Rash
Neurological: Negative Dizziness
All systems: All other systems were reviewed and were negative
Vital Signs
Temp Pulse Resp BP Pulse Ox
98.5 F 72 13 112/72 97
08/26/24 10:56 08/26/24 09:15 08/26/24 09:15 08/26/24 09:00 08/26/24 09:15
Physical Exam
Physical Exam
Constitutional: No Acute Distress and Non-toxic
Eyes: No Conjunctival Hemorrhage and Sclera Anicteric
Pharynx: Benign
Cardiovascular: Regular Rate and S1/S2
Pulmonary: Clear; Negative Wheezes, Rales, Rhonchi or Coarse
Gastrointestinal: Soft, Non Tender, Non Distended and Normal Bowel Sounds
Genito-Urinary: Negative CVA Tenderness
Extremities: Negative Edema
Musculoskeletal: Negative Joint Effusion or Spinal Tenderness
Neurological: AO x 3
Lab / Diagnostic Study Results
08/25/24 23:58
08/25/24 23:58
Abs Immat Gran (auto) 0.2 10^3/uL (0-0.05) H 08/25/24 23:58
Absolute Neuts (auto) 7.8 10^3/uL (1.4-6.5) H 08/25/24 23:58
Absolute Lymphs (auto) 2.8 10^3/uL (1.2-3.4) 08/25/24 23:58
Absolute Monos (auto) 1.1 10^3/uL (0.1-0.6) H 08/25/24 23:58
Absolute Basos (auto) 0.0 10^3/uL (0-0.2) 08/25/24 23:58
Immature Gran % 1.5 % (0-0.5) H 08/25/24 23:58
Neutrophils % 66.0 % (42.2-75.2) 08/25/24 23:58
Lymphocytes % 23.4 % (20.5-51.1) 08/25/24 23:58
Monocytes % 9.0 % (1.7-9.3) 08/25/24 23:58
Eosinophils % 0.0 % (0-6) 08/25/24 23:58
Basophils % 0.1 % (0-2) 08/25/24 23:58
PT 14.0 Sec (11.4-14.6) 08/25/24 23:58
INR 1.05 08/25/24 23:58
Lactic Acid Cancelled 08/26/24 03:45
Procalcitonin < 0.05 ng/ml (0.0-0.25) 08/25/24 23:58
Microbiology Results
Micro:
08/25/24 23:58 Influenza Types A & B (DANIEL) - Final
Nasal Swab Negative for Influenza A & B, NAAT
Negative results must be combined with clinical observations
and patient history.
Nucleic Acid Amplification test (NAAT)performed on the
[employer] platform.
08/25/24 23:58 Blood Culture - Pending
Blood/Venous
08/26/[address]: No evidence of central pulmonary embolism. Predominantly groundglass opacification in the lingula left lower lobe, somewhat nonspecific, may be inflammatory/infectious.
08/24/24 CXR: Suggestion of small patchy lingular opacity such as pneumonia.
07/17/24: Mild dependent atelectasis in the posterior lungs. The lungs appear otherwise clear.
06/08/24 CXR: No acute cardiopulmonary process.
03/18/[address]: Parenchymal airspace opacity within the right lower lobe, appearance highly suggestive of pneumonia.
Assessment / Plan
# 5 month history of cough, SOB, BENITEZ, rhinorrhea
# Acute exacerbation of cough, BENITEZ
# Unspecified autoimmune disorder (joint pains), not on tx
- Procalcitonin negative ruling out bacterial pneumonia
Can repeat procalcitonin in am to ensure not false negative.
- Previous cardiac work-up negative for SOB/cough
Other DDX: asthma, GERD, inflammatory pneumonitis, lung manifestations of autoimmune disorder.
- Current exacerbation of respiratory sxs may be due to virus.
- Should follow-up with Pulmonary outpatient for lung function tests, etc.
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
Unspecified connective tissue disorder, not on tx
Bipolar disorder
Anxiety/depression
Migraine
Cervical laminectomy
--- NOTE | 2024-08-26 14:44 | CON.ID ---
Consultation
-
Date/Time Consultation Requested: 08/26/24 9:49
Date/Time Consultation Performed: 08/26/24 14:44
Requesting Provider: Dr Pantoja
Performing Provider: Dr Baez
Reason for Consultation: Shortness of breath
Chief Complaint / Past History
Chief Complaint
shortness of breath
History of Present Illness
Ms Wayne is a 49 year old female with history of bipolar disorder
Past History
Allergy History:
morphine Allergy (Verified 08/25/24 22:26)
Nausea / Vomiting
Review of Systems
Vital Signs
Temp Pulse Resp BP Pulse Ox
98.5 F 72 13 112/72 97
08/26/24 10:56 08/26/24 09:15 08/26/24 09:15 08/26/24 09:00 08/26/24 09:15
Physical Exam
Lab / Diagnostic Study Results
08/25/24 23:58
08/25/24 23:58
Abs Immat Gran (auto) 0.2 10^3/uL (0-0.05) H 08/25/24 23:58
Absolute Neuts (auto) 7.8 10^3/uL (1.4-6.5) H 08/25/24 23:58
Absolute Lymphs (auto) 2.8 10^3/uL (1.2-3.4) 08/25/24 23:58
Absolute Monos (auto) 1.1 10^3/uL (0.1-0.6) H 08/25/24 23:58
Absolute Basos (auto) 0.0 10^3/uL (0-0.2) 08/25/24 23:58
Immature Gran % 1.5 % (0-0.5) H 08/25/24 23:58
Neutrophils % 66.0 % (42.2-75.2) 08/25/24 23:58
Lymphocytes % 23.4 % (20.5-51.1) 08/25/24 23:58
Monocytes % 9.0 % (1.7-9.3) 08/25/24 23:58
Eosinophils % 0.0 % (0-6) 08/25/24 23:58
Basophils % 0.1 % (0-2) 08/25/24 23:58
PT 14.0 Sec (11.4-14.6) 08/25/24 23:58
INR 1.05 08/25/24 23:58
Lactic Acid Cancelled 08/26/24 03:45
Procalcitonin < 0.05 ng/ml (0.0-0.25) 08/25/24 23:58
Microbiology Results
Micro:
08/25/24 23:58 Influenza Types A & B (DANIEL) - Final
Nasal Swab Negative for Influenza A & B, NAAT
Negative results must be combined with clinical observations
and patient history.
Nucleic Acid Amplification test (NAAT)performed on the
[employer] platform.
08/25/24 23:58 Blood Culture - Pending
Blood/Venous
08/26/[address]: No evidence of central pulmonary embolism. Predominantly groundglass opacification in the lingula left lower lobe, somewhat nonspecific, may be inflammatory/infectious.
08/24/24 CXR: Suggestion of small patchy lingular opacity such as pneumonia.
07/17/24: Mild dependent atelectasis in the posterior lungs. The lungs appear otherwise clear.
06/08/24 CXR: No acute cardiopulmonary process.
03/18/[address]: Parenchymal airspace opacity within the right lower lobe, appearance highly suggestive of pneumonia.
[2024-08-26] MEDS: LOVENOX 40 MG SC (17:32)
[2024-08-26] MEDS: KLONOPIN 0.5 MG PO (19:21)
[2024-08-26] MEDS: LAMICTAL 300 MG PO (21:30)
[2024-08-27 05:56] VITALS: BMI 24.3
[2024-08-27 08:15] LABS: Hematocrit 40.7 % (37.0-47.0); Hemoglobin 13.6 g/dL (12.0-16.0); Mean Corp Hgb Conc. 33.4 g/dL (33.0-37.0); Mean Corpuscular Hgb 28.8 pg (27.0-31.0); Mean Platelet Volume 10.7 fL (7.4-10.4); Platelet Count 405 10^3/uL (130-400); Red Blood Cell Count 4.73 10^6/uL (4.20-5.40); Red Cell Dist. Width 13.5 % (11.5-14.5); White Blood Cell Count 9.4 10^3/uL (4.8-10.8)
[2024-08-27 08:28] LABS: Blood Urea Nitrogen 11 mg/dl (7-17); Calcium 9.5 mg/dl (8.4-10.2); Carbon Dioxide 30 mmol/L (22-30); Chloride 96 mmol/L (98-107); Estimated Creatinine Clearance 90 ml/min; Glucose 100 mg/dl (70-99); Potassium 4.4 mmol/L (3.5-5.1); Sodium 134 mmol/L (135-145); eGFR > 60.00
[2024-08-27] MEDS: VIBRAMYCIN 100 MG PO (08:29)
[2024-08-27] MEDS: CYMBALTA DELAYED RELEASE 120 MG PO (08:29)
[2024-08-27] MEDS: STERILE WATER FOR INJECTION 10 ML IV (08:29)
[2024-08-27] MEDS: ROCEPHIN 1000 MG IV (08:30)
[2024-08-27 08:34] LABS: Erythrocyte Sed Rate 30 mm/hour (0-20)
[2024-08-27 08:35] LABS: Procalcitonin < 0.05 ng/ml (0.0-0.25)
[2024-08-27 08:36] VITALS: BP 103/73
--- NOTE | 2024-08-27 09:09 | W.PN.ID1 ---
Date of Service
Date of Service: August 27, 2024
Today's Communication
DC abx's.
Follow up with Pulm outpt.
ID will sign off.
Assessment / Plan
# 5 month history of cough, SOB, BENITEZ, rhinorrhea
# Acute exacerbation of cough, BENITEZ
# hx Unspecified autoimmune disorder (joint pains), not on tx
- Procalcitonin negative x 2 ruling out bacterial pneumonia
- DC antibiotics.
- Previous cardiac work-up negative for chronic SOB/cough
Other potential DDX chronic cough/BENITEZ: asthma, GERD, inflammatory pneumonitis, lung manifestations of autoimmune disorder, other.
- Current exacerbation of respiratory sxs possibly due to viral. Supportive care.
- Should follow-up with Pulmonary outpatient for lung function tests, etc.
ID will sign off.
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
Unspecified connective tissue disorder, not on tx
Bipolar disorder
Anxiety/depression
Migraine
Cervical laminectomy
Chief Complaint
-: Other (Cough, SOB)
Subjective / Review of Systems
Feels same, no better.
Vital Signs / Physical Exam
Vital Signs
Vital Signs
Temp Pulse Resp BP Pulse Ox
98.2 F 77 16 103/73 95
08/27/24 08:36 08/27/24 08:36 08/27/24 08:36 08/27/24 08:36 08/27/24 08:36
Physical Exam
Constitutional: No Acute Distress and Comfortable
Eyes: Sclera Anicteric
Cardiovascular: Regular Rate and S1/S2
Pulmonary: Clear
Gastrointestinal: Soft, Non Tender, Non Distended and Normal Bowel Sounds
Extremities: Negative Edema
Neurological: AO x 3
Objective Data
Lab Data
Lab Results
08/27/24 06:37
08/27/24 06:36
ESR 30 mm/hour (0-20) H 08/27/24 06:37
PT 14.0 Sec (11.4-14.6) 08/25/24 23:58
INR 1.05 08/25/24 23:58
Estimated Creat Clear 90 ml/min 08/27/24 06:36
Lactic Acid Cancelled 08/26/24 03:45
Total Bilirubin 0.3 mg/dl (0.2-1.3) 08/25/24 23:58
AST 21 U/L (14-36) 08/25/24 23:58
ALT 13 U/L (0-35) 08/25/24 23:58
Alkaline Phosphatase 55 U/L (38-126) 08/25/24 23:58
Most recent labs reviewed.
Micro Results:
08/25/24 23:58 Blood Culture - Preliminary
Blood/Venous No Growth in 24 hours- Final report to follow
08/25/24 23:58 Influenza Types A & B (DANIEL) - Final
Nasal Swab Negative for Influenza A & B, NAAT
Negative results must be combined with clinical observations
and patient history.
Nucleic Acid Amplification test (NAAT)performed on the
[employer] platform.
08/26/[address]: No evidence of central pulmonary embolism.
Predominantly groundglass opacification in the lingula left lower lobe, somewhat nonspecific, may be inflammatory/infectious.
--- NOTE | 2024-08-27 09:17 | W.PN.HOSP.TC ---
Today's Communication/Plan
-
d/c
Assessment / Plan
Assessment / Plan
Pt seen and examined with ZULMA Stark present at bedside:
Gen: NAD, AAOx3.
Eyes: EOMI, PERRLA, no scleral icterus.
Neck: supple.
CV: RRR, +S1/S2, no m/r/g.
Resp: CTAB, no rales, wheezes, or rhonchi.
Abd: +BS, soft, NT, ND
Skin: No rashes.
Neuro: CN 2-12 intact, non-focal.
Psych: Normal mood and affect.
CT chest: No PE. Predominantly groundglass opacification in the lingula and left lower lobe, somewhat nonspecific, may be inflammatory/infectious.
Lingula and LLL groundglass opacities:
-chronic cough/BENITEZ/rhinorrhea x 5 months
-CTA chest above
-saturating well on RA, currently not tachypneic
-appreciate ID, no indication for abx as procal NEG x 2 and, therefore, bacterial PNA has been ruled out
-no indication for further hospitalization. Pt encouraged to follow up with pulm after discharge.
Other problems:
Bipolar d/o: cont Cymbalta/Lamictal/Caplyta/Clonazepam
Unspecified CTD
Seronegative RA
Migraine
Cervical laminectomy
FULL/Lovenox
Total time spent on d/c = 35 min. This included today's physical exam, progress note, review of laboratory and diagnostic data, preparation of discharge documents and prescriptions, and discussions about the pt's hospital course and discharge plan
with the patient and other hospital medical biller involved in the patient's care.
Anticipated Discharge: Today
Subjective/Interval History
-
Date of Service: August 27, 2024
Pt still states 'I can't breathe.'
Objective Data
-
Labs:
Laboratory Results
08/27/24 08/27/24
06:36 06:37
WBC 9.4
Hgb 13.6
Hct 40.7
Plt Count 405 H D
Sodium 134 L
Potassium 4.4
Chloride 96 L
Carbon Dioxide 30
BUN 11
Creatinine 0.8
Glucose 100 H
Calcium 9.5
Vital Signs:
Vital Signs
Temp Pulse Resp BP Pulse Ox
98.2 F 77 16 103/73 95
08/27/24 08:36 08/27/24 08:36 08/27/24 08:36 08/27/24 08:36 08/27/24 08:36
I&O
08/26/24 08/27/24 08/28/24
06:59 06:59 06:59
Intake Total 480 / 480
Balance 480 / 480
--- NOTE | 2024-08-27 11:40 | CM ---
Pt stable for d/c today
No CM needs at this time
Plan: Home; no needs
[2024-08-27 13:00] LABS: Rheumatoid Agglutinin Less Than 10 IU (<10 IU)
--- NOTE | 2024-08-27 15:20 | W.DCSUMMARY ---
Discharge Summary
Discharge Data
Date of Admission: 08/26/24
Date of Discharge: 08/27/24
-
Pending Results: No
Hospital Course
Primary diagnoses:
Lingula and left lower lobe groundglass opacities
Secondary diagnoses:
Bipolar d/o: cont Cymbalta/Lamictal/Caplyta/Clonazepam
Seronegative rheumatoid arthritis
Migraine
Cervical laminectomy
Consultants:
Infectious disease
Imaging:
CTA chest: No PE. Predominantly groundglass opacification in the lingula and left lower lobe, somewhat nonspecific, may be inflammatory/infectious.
Hospital course: 49-year-old female who was admitted to less than 2 days ago with a chief complaints of chronic shortness of breath as outlined in the H&P done yesterday. Of note the patient had chronic cough, dyspnea on exertion, and rhinorrhea
for the last [address] angiogram of the chest above and notable for groundglass opacification in the lingula and left lower lobe. The patient was saturating well on room air and was not tachypneic. The patient was placed on Rocephin and
doxycycline. Her procalcitonin was negative x 2 and bacterial pneumonia was ruled out. She was seen in consultation by infectious disease and antibiotics were stopped. She was discharged in medically stable condition
Discharge Plan
-
Patient Disposition: Home (Routine Discharge)
Discharge Diagnosis/Procedures: Chronic cough and shortness of breath
Condition: Good
Diet: No restrictions
Activity: No restrictions
Driving Restrictions: As prior to admission
Bathing Restrictions: None
Referrals:
Luis Gayle MD [Active] - in less than 1 week
Amanda Norwood MD [Family Provider] - in less than 1 week
Prescriptions:
Continued
lamotrigine [Lamictal] 200 MG tablet
300 mg PO HS
duloxetine [Cymbalta] 60 mg Capsule,Delayed Release(Dr/Ec)
120 mg PO DAILY
Caplyta 42 mg Capsule
42 mg PO HS
clonazepam 0.5 mg Tablet
0.5 mg PO BID@0800,1200
clonazepam 0.5 mg Tablet
1 mg PO HS
drospirenone-ethinyl estradiol 3-0.03 mg Tablet
1 tab PO DAILY
oxycodone 5 mg tablet
5 mg PO Q4HPRN PRN (Reason: severe pains)
Patient Comments:
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
clonazepam 0.5 mg Tablet
0.5 mg PO BIDPRN PRN (Reason: anxiety)
Tylenol Cold and Flu Severe [phone] mg Tablet
2 tab PO DAILYPRN PRN (Reason: mild pain)
Discontinued
azithromycin 250 mg Tablet
0 mg PO .COMPLEX
Patient Comments:
start on 08/22/24 zpak
Rx Instructions:
For 250 mg dose pack: take 500 mg today (day 1), then 250 mg for 4 days (days 2-5)
Discharge Orders:
Discharge Patient (As Directed); Ordered 08/27/24
Ordered By: Alberto Snow
Discharge Date and Time
Discharge Date/Time: 08/27/24 11:59
Print Language: IVORIAN
== END 2024-08-27 11:59 | disposition home or self-care (01) ==
LOC: 4 WEST ACU 04:01
PROVIDERS: Internal Medicine; ADMITTING PHYSICIAN Internal Medicine; ATTENDING PHYSICIAN Internal Medicine; EMERGENCY PHYSICIAN Student in an Organized Health Care Education/Training Program; FAMILY PHYSICIAN Student in an Organized Health Care Education/Training Program; OTHER PHYSICIAN Internal Medicine Infectious Disease
DX: R06.02 Shortness of breath (principal); R53.83 Other fatigue; R05.3 Chronic cough; R07.9 Chest pain, unspecified; D89.89 Other specified disorders involving the immune mechanism, not elsewhere classified; F41.9 Anxiety disorder, unspecified; F31.9 Bipolar disorder, unspecified; G43.909 Migraine, unspecified, not intractable, without status migrainosus; D50.9 Iron deficiency anemia, unspecified; M06.00 Rheumatoid arthritis without rheumatoid factor, unspecified site; J34.89 Other specified disorders of nose and nasal sinuses; J45.909 Unspecified asthma, uncomplicated; K21.9 Gastro-esophageal reflux disease without esophagitis; R06.09 Other forms of dyspnea; Z87.01 Personal history of pneumonia (recurrent); Z87.440 Personal history of urinary (tract) infections; Z88.5 Allergy status to narcotic agent; Z87.891 Personal history of nicotine dependence; Z11.52 Encounter for screening for COVID-19
CPT/HCPCS: 71275; 80048; 80053; 83605; 83735; 83880; 84145; 84484; 84703; 85025; 85027; 85610; 85652; 86038; 86140; 86200; 86430; 87040; 87502; 87811; 93005; 96374; 99285; Q9967

== ENCOUNTER 2025-02-12 20:50 | Emergency (ER) | payer OTHER, SELFPAY ==
[2025-02-12 20:54] VITALS: BP 115/69
[2025-02-12 21:39] LABS: Hematocrit 37.3 % (37.0-47.0); Hemoglobin 12.7 g/dL (12.0-16.0); Mean Corp Hgb Conc. 34.0 g/dL (33.0-37.0); Mean Corpuscular Volume 84.6 fL (81.0-99.0); Platelet Count 310 10^3/uL (130-400); Red Cell Dist. Width 13.5 % (11.5-14.5)
[2025-02-12 21:41] LABS: ALT (SGPT) 13 U/L (0-35); AST (SGOT) 23 U/L (14-36); Albumin 4.2 g/dl (3.5-5.0); Alkaline Phosphatase 49 U/L (38-126); Blood Urea Nitrogen 5 mg/dl (7-17); Calcium 9.5 mg/dl (8.4-10.2); Carbon Dioxide 29 mmol/L (22-30); Chloride 98 mmol/L (98-107); Glucose 101 mg/dl (70-99); Potassium 4.3 mmol/L (3.5-5.1); Sodium 132 mmol/L (135-145); Total Protein 6.9 g/dl (6.3-8.2); eGFR > 60.00
[2025-02-12 21:52] LABS: Troponin I < 0.012 ng/ml
[2025-02-12 21:55] LABS: Nucleated Red Blood Cells % 0 %
== END 2025-02-12 23:40 | disposition left against medical advice (07) ==
LOC: EMR 20:50
PROVIDERS: Student in an Organized Health Care Education/Training Program; EMERGENCY PHYSICIAN Emergency Medicine
DX: R07.89 Other chest pain (principal); Z53.21 Procedure and treatment not carried out due to patient leaving prior to being seen by health care provider
CPT/HCPCS: 80053; 83880; 84484; 85025; 93005

== ENCOUNTER 2025-02-13 13:48 | Inpatient (IN) | payer OTHER, SELFPAY ==
[2025-02-13 07:44] VITALS: BP 119/66
[2025-02-13 09:02] LABS: Hematocrit 35.3 % (37.0-47.0); Hemoglobin 12.1 g/dL (12.0-16.0); Mean Corp Hgb Conc. 34.3 g/dL (33.0-37.0); Mean Corpuscular Volume 85.1 fL (81.0-99.0); Platelet Count 267 10^3/uL (130-400); Red Cell Dist. Width 13.6 % (11.5-14.5)
[2025-02-13 09:25] LABS: ALT (SGPT) 12 U/L (0-35); AST (SGOT) 22 U/L (14-36); Albumin 4.0 g/dl (3.5-5.0); Alkaline Phosphatase 44 U/L (38-126); Blood Urea Nitrogen 7 mg/dl (7-17); Calcium 9.8 mg/dl (8.4-10.2); Carbon Dioxide 29 mmol/L (22-30); Chloride 99 mmol/L (98-107); Glucose 90 mg/dl (70-99); Potassium 3.5 mmol/L (3.5-5.1); Sodium 134 mmol/L (135-145); Total Protein 7.0 g/dl (6.3-8.2); eGFR > 60.00
[2025-02-13 09:37] LABS: Troponin I < 0.012 ng/ml
[2025-02-13 10:36] LABS: Nucleated Red Blood Cells % 0 %
[2025-02-13] MEDS: ROCEPHIN 1000 MG IV (10:37)
[2025-02-13] MEDS: ZITHROMAX 500 MG PO (10:37)
--- NOTE | 2025-02-13 11:41 | ED.GENMED ---
History of Present Illness
General
Chief Complaint: Breathing Problem
Source: patient
Time Seen by Provider: 02/13/25 07:59
History of Present Illness
History of Present Illness:
Note:
CHIEF COMPLAINT(S)
Shortness of breath.
HISTORY OF PRESENT ILLNESS
The patient is a 50-year-old female who presents with shortness of breath. She was seen previously for pneumonia and had a chest computed tomography (CT) scan. The patient reports discomfort in her upper chest. She describes a timeline where her
shortness of breath began approximately the day prior to the visit, with worsening symptoms over the course of that day. The patient mentions seeing multiple specialists, including a automatic spooler operator and a closing specialist, and discussions about
potentially undergoing bronchoscopy to evaluate her lungs. She denied any fever today, stating her temperature was normal. Additionally, she reports experiencing intermittent leg swelling, though not prominent on the day of the visit. She denies any
cough productive of blood, describing her cough as dry, and has no known exposure to allergens or irritants in her home.
She mentions she does not smoke and has never smoked. A dog is present in the household but she has not noted any allergic reactions associated with the pet. The patient has no other significant medical history or known exposures to toxins or
pollutants that might contribute to her respiratory symptoms.
EXTERNAL RECORDS REVIEWED
The patient mentions prior evaluations at [facility], including a CT scan to rule out pulmonary embolism. It is suggested in the conversation that external records from a previous pneumonia diagnosis and associated treatment may have been reviewed.
PHYSICAL EXAM
General: Alert, no acute distress.
Skin: Warm, dry.
Head: Normocephalic, atraumatic.
Neck: Supple, trachea midline, no jugular venous distension.
Eye, Ears, Nose, and Throat: Oral mucosa moist, no strider or lip/tongue swelling.
Cardiovascular: Regular rhythm, 2/6 systolic ejection murmur noted, no S3, edema absent.
Respiratory: Lungs are clear to auscultation bilaterally, respirations non-labored.
Gastrointestinal: Abdomen nondistended.
Back: Normal range of motion, normal alignment.
Musculoskeletal: No edema in lower extremities.
Neurological: Alert and oriented, normal cranial nerves and no focal neurological deficit observed.
Psychiatric: Cooperative, appropriate mood and affect.
PLAN
The plan includes repeating a chest X-ray and obtaining lab work to assess the current status of the patients pulmonary condition. The provider plans to review previous records to align current assessments with past evaluations.
DIFFERENTIAL DIAGNOSIS
The Differential Diagnosis includes, in no particular order and is not limited to:
1. Pneumonia
2. Congestive heart failure
3. Pulmonary embolism
4. Chronic obstructive pulmonary disease
5. Bronchitis
6. Asthma
7. Interstitial lung disease
8. Acute respiratory distress syndrome
9. Cardiomyopathy
10. Hypersensitivity pneumonitis
CARE-UPDATE
02/13/25 - 10:05
Patient presents with a recurrent pneumonia, now noted to be in the right upper lobe, and a high white blood cell count of 28,000. This is the second pneumonia episode within seven months, raising concern due to recurrence and location change from
previous pneumonia. Patient reports no recent travel or known exposure to tuberculosis. A CT scan of the chest is planned to determine the extent and specifics of the current pneumonia. Am outpatient bronchoscopy is considered for further
investigation of airway linings to rule out other underlying conditions. The patient will receive IV antibiotics immediately and may manage the condition as an outpatient, provided there are no signs of worsening. The patient is allergic to morphine.
Disposition:
SUMMARY OF ENCOUNTER
The patient, a 50-year-old female with a history of recurrent pneumonia, presented to the emergency department with worsening shortness of breath. A review of her previous medical records, including consultations and a discharge summary, was
conducted. Laboratory results indicated a white blood cell count of 24.9 K/uL with neutrophilia at 85% and a left shift, while hemoglobin and platelets were normal. Comprehensive metabolic panel (CMP) results were normal, and troponin levels were
negative. A CT scan ruled out pulmonary embolism but showed right upper lobe pneumonia. Based on the significant leukocytosis and presence of dyspnea, the plan was to admit the patient for intravenous antibiotics and close monitoring, without
evidence of sepsis.
DISPOSITION
Admit for IV antibiotics and monitoring.
ASSESSMENT
Right upper lobe pneumonia with significant leukocytosis. The current episode does not suggest sepsis or bacteremia.
MANAGEMENT OF THE PATIENTS CARE WAS DISCUSSED WITH
Case was discussed with the radiology department, who confirmed the presence of right upper lobe pneumonia.
INDEPENDENT REVIEW OF LABS AND INTERPRETATION OF TESTS
My independent review of CBC is significant for leukocytosis at 24.9 K/uL with a left shift and neutrophils at 85%.
My independent review of CMP indicated normal results.
My independent review of troponin is negative.
- CT scan: My independent interpretation of the chest CT scan indicates right upper lobe pneumonia and is negative for pulmonary embolism, consistent with the radiologists interpretation.
PATIENT EDUCATION AND COUNSELING
The patient was informed about the diagnosis of right upper lobe pneumonia, the need for IV antibiotics, and the importance of hospitalization for monitoring.
MEDICATION RECONCILIATION
Plan to administer IV antibiotics upon admission for pneumonia treatment.
MEDICAL DECISION MAKING
- Complexity of Data Reviewed: Chronic conditions affecting care include recurrent pneumonia. Differential diagnosis includes pneumonia, congestive heart failure, pulmonary embolism, chronic obstructive pulmonary disease, bronchitis, asthma,
interstitial lung disease, acute respiratory distress syndrome, cardiomyopathy, and hypersensitivity pneumonitis.
- Data:
- Category 1: Previous records reviewed including infectious disease consultations from March 2024 and August 2024, discharge summary from August 2024. Reviewed CBC, CMP, and troponin results.
- Category 3: Discussion with radiology regarding CT findings confirming right upper lobe pneumonia.
- Risk: Prescription drug management for IV antibiotics. Consideration of Admission/Observation: Escalation of care including admission was considered given the complexity and risk of the patients presenting complaint, exam findings, and their
recurrent pneumonia. Escalation of care is warranted due to significant leukocytosis and need for IV antibiotics.
DIAGNOSIS
Recurrent pneumonia, right upper lobe, ICD-10: J18.1.
Past History
Past History
ED Past Medical History: Psychiatric (Bipolar, Anxiety, depression) and Other (Back and neck pain, Dizziness, Headaches, Migraines, Numbness in arms and legs, Pyelonephritis, Iron -def anemia, PNA, )
ED Past Surgical History: Orthopedic (Cervical laminectomy anterior approach)
Social History
Tobacco: Non-smoker
Alcohol: None
Drug: None
Personal:
Living: with family
Employment: Employed
Family History
Family History: Other (Reviewed and noncontributory)
Phy Exam
Physical Exam
Physical Exam:
.
Scores
Heart Failure Risk
Heart Failure Risk Score: Not Applicable
Course
Orders/Labs/Results
Orders:
Orders
02/13/25 07:48
Electrocardiogram (*1) Urgent
Reason for Study: Chest Pain
EKG- Treatment ONCE
02/13/25 08:11
CR Chest - 2 Views Urgent
Comment:
Reason For Exam: sob
02/13/25 08:43
Complete Blood Count/With Diff Urgent
Comprehensive Metabolic Panel Urgent
Troponin I Urgent
02/13/25 Lunch
Regular
At Your Request: Limited Participation
Does patient need a safe tray?: No
02/13/25 10:06
CT Chest PE Study Urgent
Comment:
Reason For Exam: CP, sob, abnormal CXR
Azithromycin [Zithromax] 500 mg PO NOW STA
CefTRIAXone [Rocephin] 1,000 mg IV NOW STA
02/13/25 12:23
Ibuprofen [Motrin] 600 mg PO NOW STA
02/13/25 12:31
COVID-19 Antigen Routine
Source: Nasal Swab
Influenza A+B Rapid Molecular Routine
JENN Source: Nasal Swab
Specimen Description:
02/13/25 13:06
Admit/Transfer Patient As Directed
Co-Sign Provider:
Level of Care: Inpatient admission
Assign to:: Medical/Surgical
Physician / Group: Tracey
Diagnosis: Pneumonia
Reason for Hospitalization: IV antibiotics
Expected length of stay greater than two midnights?: Yes
ELOS- Estimated Length of Stay in days: 2
I certify the patient meets the requirements for IP care: Yes
PRN Pain Medication Management As Directed
May give lesser potent ordered pain med per pt: Yes
preference::
Protocol:: Medication orders for pain may be administered in a
manner that supports deferring to patient preference
when the pt is:
- Requesting an ordered lesser potent pain medication.
Least to most potent pain medications are defined
as: acetaminophen < NSAID < tramadol < opioids
(morphine, oxycodone, hydromorphone).
- Requesting a lesser dose of the same medication IF
ORDERED.
- Requesting a less intrusive route of administration
if both routes are prescribed by the provider (PO <
IV).
02/13/25 13:08
Code Status As Directed
Resuscitation Status: Full Code
02/13/25 13:17
Potassium Chloride [KCl] 40 meq PO NOW STA
02/13/25 13:51
HYDROmorphone [Dilaudid] 0.5 mg IV Q3HPRN PRN
02/13/25 14:58
Acetaminophen [Tylenol] 650 mg PO Q6HPRN PRN
Clonazepam [Klonopin] 0.5 mg PO 5/D PRN anxiety
Guaifenesin [Mucinex] 600 mg PO NOW STA
02/13/25 14:58
Activity As Directed
Activity Level: Ambulate
DX Deep Vein Thrombosis Video Routine
02/13/25 15:55
Legionella Urinary Antigen Routine
JENN Source: Urine
Specimen Description:
Strep pneumoniae Antigen Routine
JENN Source: Urine
Specimen Description:
02/13/25 18:00
Enoxaparin Sodium [Lovenox] 40 mg SC QPM
02/13/25 20:00
Guaifenesin [Mucinex] 600 mg PO Q12
02/13/25 22:00
Lamotrigine [Lamictal] 300 mg PO HS
lumateperone [Caplyta] 42 mg PO HS
02/14/25 06:00
BMP [Basic Metabolic Panel] IN AM
CBC/With Diff [Complete Blood Count/With Diff] IN AM
02/14/25 08:00
Azithromycin [Zithromax] 500 mg PO DAILY
Duloxetine Delayed Release [Cymbalta Delayed Release] 30 mg PO DAILY
Duloxetine Delayed Release [Cymbalta Delayed Release] 60 mg PO DAILY
02/14/25 10:00
CefTRIAXone [Rocephin] 1,000 mg IV Q24H
Abnormal Lab Results
02/13/25
08:43
WBC 24.9 H 10^3/uL
(4.8-10.8)
RBC 4.15 L 10^6/uL
(4.20-5.40)
Hct 35.3 L %
(37.0-47.0)
Abs Immat Gran (auto) 0.1 H 10^3/uL
(0-0.05)
Absolute Neuts (auto) 21.1 H 10^3/uL
(1.4-6.5)
Absolute Monos (auto) 1.4 H 10^3/uL
(0.1-0.6)
Neutrophils % 84.8 H %
(42.2-75.2)
Lymphocytes % 9.0 L %
(20.5-51.1)
Sodium 134 L mmol/L
(135-145)
02/13/25 08:43
02/13/25 08:43
Vital Signs
Initial and Last Documented VS:
Initial Vital Signs
Temp Pulse Resp BP Pulse Ox
98.4 F 113 18 119/66 98
02/13/25 07:44 02/13/25 07:44 02/13/25 07:44 02/13/25 07:44 02/13/25 07:44
Last Documented Vital Signs
Temp Pulse Resp BP Pulse Ox
98.3 F 91 20 116/72 99
02/13/25 15:00 02/13/25 15:00 02/13/25 15:00 02/13/25 15:00 02/13/25 15:00
*Pulse Oximetry
SaO2: 97
Oxygen Mode of Delivery: Room air
Patient hypoxic: no
*Inbound Call Center Agent Interpretation
Rate: tachycardiac
Interpretation: abnormal
Rhythm: sinus
*Critical Care Note
Total Time (30-74mins, 75-104mins- exclusive of procedures): Not Applicable
ED Attending Note
-
Portions of this chart may have been created with voice recognition software.� Occasional wrong word or��sound alike� substitutions may have occurred due to the inherent limitations of voice recognition software.
Discharge Plan
Departure
Patient Disposition: Admit
Date of Disposition: 02/13/25
Time of Disposition: 11:41
Admit to: Med/Surg
Presentation/result/management discussed w/ accepting MD/DO: Hospitalist
Discharge Problem:
Pneumonia
Interventions
Interventions:
*Risk Screen - Suicide Last Done: 02/13/25 07:44
*General Assessment Last Done: 02/13/25 09:11
*Neglect/Abuse Screening Last Done: 02/13/25 07:44
*ED- Fall Risk Assessment Last Done: 02/13/25 09:11
*ED COVID-19 Vaccine History Last Done: 02/13/25 09:11
*Nursing Disposition Last Done: 02/13/25 14:16
ED- Cardiac Assessment Last Done: 02/13/25 09:11
ED- Pulmonary Assessment Last Done: 02/13/25 09:11
Discharge Date and Time
Discharge Date/Time: 02/13/25 14:16
[2025-02-13] MEDS: MOTRIN 600 MG PO (12:28)
[2025-02-13 13:05] LABS: COVID-19 Antigen Negative (Negative)
--- NOTE | 2025-02-13 13:18 | HPS.HSE ---
Family Physician
-
Family Physician: Amanda Norwood MD
Chief Complaint
-
Shortness of breath, chest pain, cough
History of Present Illness
50-year-old female with history of pneumonia presents to the hospital with ongoing cough, shortness of breath and chest pain. Her chest pain is her primary complaint. She states that her chest has been hurting since March of last year when she
had her first episode of pneumonia. Was rehospitalized in August of this year with pneumonia.
Pain is pleuritic in nature. No relief with NSAIDs.
She sees a tire rebuilder at [facility] and is scheduled for evaluation for bronchoscopy this coming week.
Has never had workup for immune deficiency.
She appears very frustrated over lack of improvement in her symptoms of chest pain and cough. She feels some relief in her chest pain with a course of antibiotics but within a month her pain recurs.
She does see rheumatology for unspecified connective tissue disease. Not currently on steroids or immunosuppression. Was on a course of methotrexate last year for 3 months but discontinued when she was admitted to the hospital in March with a
diagnosis of pneumonia.
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 She gets no relief from Percocet or ibuprofen. She does see a pain specialist primarily for her chronic low back pain.
Medical History
Past Medical History
Past Medical History: Reports Other
Additional Past Medical History:
Pneumonia
Anxiety disorder
Bipolar disorder
Unspecified autoimmune disease
Chronic low back pain
Migraine headaches
Past Surgical History: Reports Orthopedic and Other
Additional Past Surgical History:
Cervical laminectomy
Social History
Tobacco: Non-smoker
Alcohol: None
Drug: None
Personal:
Living: With Family
Employment: Employed
Family History
Family History: Not pertinent
Allergies / Home Medications
Allergies reflects when Allergies were last updated in [employer].
Home Medications with original date entered in [employer]
Allergy/Medication List:
Allergies
Allergy/AdvReac Type Severity Reaction Status Date / Time
morphine Allergy Nausea / Verified 02/13/25 07:47
Vomiting
Home Medications
lamotrigine 200 mg tablet (Lamictal) 300 mg PO HS Mental Health/Anxiety 12/19/19
lumateperone 42 mg capsule (Caplyta) 42 mg PO HS Mental Health/Anxiety 11/23/22
oxycodone 5 mg tablet 5 mg PO Q8HPRN PRN severe pains 09/05/23
clonazepam 0.5 mg tablet 0.5 mg PO 5/D PRN anxiety 02/13/25
drospirenone 3 mg-ethinyl estradiol 0.03 mg tablet (Zumandimine (28)) 1 tab PO DAILY 02/13/25
duloxetine 30 mg capsule,delayed release 30 mg PO DAILY 02/13/25
duloxetine 60 mg capsule,delayed release 60 mg PO DAILY 02/13/25
ibuprofen 200 mg tablet 600 mg PO DAILYPRN PRN mild pain 02/13/25
Review of Systems
-
History Source: Patient
A 12 point ROS was completed and negative except as noted: Yes
Physical Exam
Vital Signs
Vital Signs
Temp Pulse Resp BP Pulse Ox
98.4 F 82 16 119/66 97
02/13/25 07:44 02/13/25 10:00 02/13/25 10:00 02/13/25 07:44 02/13/25 11:42
Physical Exam
General: Well Developed, Well Nourished, Appears in Distress and Pain
HEENT: NormoCephalic, Anicteric and Moist mucous membranes
Respiratory: Clear
Cardiac: S1/S2 and Regular Rhythm
Breast: Deferred by me
GI: Soft, Non Tender and Non Distended
Genito-urinary: Deferred by me
Musculoskeletal: No Clubbing, No Cyanosis and No Edema
Skin: Warm and Dry
Neuro: AO x 3
Hematologic/Lymphatic: No Lymphadenopathy
Psych: Calm
Laboratory Results
-
02/13/25 08:43
02/13/25 08:43
Laboratory Results
Total Bilirubin 0.5 mg/dl (0.2-1.3) 02/13/25 08:43
AST 22 U/L (14-36) 02/13/25 08:43
ALT 12 U/L (0-35) 02/13/25 08:43
Alkaline Phosphatase 44 U/L (38-126) 02/13/25 08:43
Troponin I < 0.012 ng/ml 02/13/25 08:43
Impression/Plan
-
Community-acquired pneumonia -CT chest shows right upper lobe opacification, small groundglass opacity in the superior segment of the right lower lobe. This would be her third episode of pneumonia in the 12 months. Leukocytosis noted but afebrile.
Hemodynamically stable.
Admit to [facility]. Offered pulmonary consult but patient declined and wants to follow-up with her outpatient tire rebuilder this week.
Already received IV antibiotics at 10 AM, too late to draw blood cultures. Continue ceftriaxone, azithromycin.
Check urinary antigens.
Influenza and COVID-negative.
Check immunoglobulin panel, HIV, patient agrees.
Recommend outpatient follow-up with immunology, discussed with patient. She may have underlying immunodeficiency explaining recurrent pneumonia.
Chronic chest pain -etiology remains elusive. Rule out rheumatologic disease. She has some tenderness to palpation over her chest. Costochondritis or other musculoskeletal etiology is possible. Pneumonia can certainly cause pain but would not
explain the chronic nature of the pain. She states she gets some relief after a course of antibiotics, but pain tends to recur.
Recommend outpatient follow-up with her automotive wholesale parts advisor.
She states NSAIDs do not relieve her pain. Tried topical lidocaine in the past without relief. Oxycodone not helpful either. Can try IV Dilaudid as needed.
Ultimately, long-term opiate use is not recommended.
Bipolar disorder
Anxiety disorder
Unspecified rheumatologic disease -not on immunosuppression.
Full code
--- NOTE | 2025-02-13 13:41 | CM ---
CM reviewed chart and met with pt and bedside in ED.
Lives with and teenage son in 2 story home.
Independent in ADLs, personal care and ambulation at baseline. No DME.
PCP: Amanda Norwood
Pharmacy: [facility]
Discharge plan: Anticipate home, no needs
[2025-02-13 13:46] VITALS: BP 101/55
[2025-02-13] MEDS: DILAUDID 0.5 MG IV ×3 (13:56→21:33)
[2025-02-13] MEDS: KCL 40 MEQ PO (13:56)
[2025-02-13 14:00] VITALS: BP 101/55
[2025-02-13 15:00] VITALS: BP 116/72
[2025-02-13 15:17] VITALS: BMI 24.0
[2025-02-13] MEDS: MUCINEX 600 MG PO ×2 (15:45→22:00)
[2025-02-13] MEDS: LOVENOX 40 MG SC (17:50)
[2025-02-13] MEDS: FLUSH (NSS) 2 FLUSH IV (17:54)
[2025-02-13 19:25] VITALS: BP 124/79
--- NOTE | 2025-02-13 21:27 | W.PN.UPDATE ---
Update Note
Progress Note Update
RN stated patient requesting to see COMMERCIAL DRIVER'S LICENSE DRIVER. RN reported patient with multiple complaints seeing black dots, feeling chest popping sensations, left arm numbness/tinglings. Patient seen and evaluated, stated she only has 'bubble sensation at present, and
all other symptoms resolved. Patient is anxious regarding her health, that she has been having these chest popping and bubbling conditions for a year, and no one is addressing it. This COMMERCIAL DRIVER'S LICENSE DRIVER addressed the Product Owner involved in her care at present,
she stated she has appointment this week regard valve regurgitation. Addressed the Troponin levels and results of chest xray and the treatment she is receiving here. Addressed we can get bacteriology teacher involve as well but no acute reasoning is there
at present. Patient stated she rather see her own bacteriology teacher outpatient and follow their plan. Stable VS, will order IV Famotidine for some relief of 'bubble' sensation mid chest. Patient agrees with the plan, states she feels comfortable at
present. Reassurance provided.
[2025-02-13] MEDS: LAMICTAL 300 MG PO (21:33)
[2025-02-13] MEDS: NSS (PRESERVATIVE FREE) 8 ML IV (22:00)
[2025-02-13] MEDS: PEPCID 20 MG IV (22:00)
--- NOTE | 2025-02-13 22:00 | PTCARENOTE ---
During walking rounds patient tearful, holding onto side rails of bed, stating 'dizziness, seeing black dots, 10/10 chest pain with popping sensation on L SD, numbness and tingling down L arm'. BP 124/79 HR 86 100% RA. Pt stating 'has gotten IV
dilaudid in past with no issue'. House JANITORIAL SUPERVISOR notified. Pt requesting JANITORIAL SUPERVISOR to floor to evaluate. Order for IV pepcid X1, IV dilaudid given. Pt remains dizzy, seeing black dots resolved, numbness and tingling L arm resolved. Offered pt PRN klonopin for
anxiety- pt denied need. JANITORIAL SUPERVISOR aware.
[2025-02-13] MEDS: NON-FORMULARY ITEM 42 MG PO (22:04)
[2025-02-13 23:14] VITALS: BP 112/77
[2025-02-14] MEDS: DILAUDID 0.5 MG IV ×4 (01:00→22:29)
[2025-02-14 07:05] VITALS: BP 101/66
[2025-02-14 07:07] LABS: Hematocrit 33.8 % (37.0-47.0); Hemoglobin 11.0 g/dL (12.0-16.0); Mean Corp Hgb Conc. 32.5 g/dL (33.0-37.0); Mean Corpuscular Volume 86.9 fL (81.0-99.0); Nucleated Red Blood Cells % 0 %; Platelet Count 293 10^3/uL (130-400); Red Cell Dist. Width 13.7 % (11.5-14.5)
[2025-02-14 07:31] LABS: Blood Urea Nitrogen 6 mg/dl (7-17); Calcium 9.3 mg/dl (8.4-10.2); Carbon Dioxide 26 mmol/L (22-30); Chloride 104 mmol/L (98-107); Estimated Creatinine Clearance 119 ml/min; Glucose 95 mg/dl (70-99); Potassium 4.0 mmol/L (3.5-5.1); Sodium 135 mmol/L (135-145); eGFR > 60.00
[2025-02-14 08:01] VITALS: BP 101/66
--- NOTE | 2025-02-14 08:23 | W.PN.HOSP.TC ---
Addendum entered and electronically signed by Boris Webb DO 02/14/25 09:41:
I updated patient's primary care physician on the phone, Dr. Amanda Norwood. She can be reached at [phone] with any questions or concerns.
Addendum entered and electronically signed by Boris Webb DO 02/14/25 08:59:
Informed by patient case coordinator that patient has changed her mind and wants to stay another day in the hospital.
Original Note:
Today's Communication/Plan
-
Discharge
Assessment / Plan
Assessment / Plan
Gen-AAOx3, NAD
HEENT-NC, AT, anicteric, clear oral mm
Neck-supple
CV-reg, no M, +S1/S2
Lungs-clear B/L
Abd-soft, NT, ND
Ext-no edema
Musculoskeletal-no cyanosis, clubbing
Skin-warm and dry
Neuro-grossly non-focal
Psych-calm, cooperative
Community-acquired pneumonia -CT chest shows right upper lobe opacification, small groundglass opacity in the superior segment of the right lower lobe. This would be her third episode of pneumonia in the 12 months. Leukocytosis noted but afebrile.
Hemodynamically stable.
Clinically improving, leukocytosis improving, she is feeling better. Afebrile.
Day 2 of 7 for antibiotics.
Urinary antigens negative.
Influenza and COVID-negative.
Immunoglobulin panel, HIV pending.
Recommend outpatient follow-up with immunology, discussed with patient. She may have underlying immunodeficiency explaining recurrent pneumonia.
Patient is requesting discharge today, I see no contraindication. Will change to oral antibiotics. She does not want prescription for opioids on discharge.
Chronic chest pain -etiology remains elusive. Rule out rheumatologic disease. She has some tenderness to palpation over her chest. Costochondritis or other musculoskeletal etiology is possible. Pneumonia can certainly cause pain but would not
explain the chronic nature of the pain. She states she gets some relief after a course of antibiotics, but pain tends to recur.
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
She states NSAIDs do not relieve her pain. Tried topical lidocaine in the past without relief. Oxycodone not helpful either. Can try IV Dilaudid as needed.
Ultimately, long-term opiate use is not recommended.
Bipolar disorder
Anxiety disorder
Unspecified rheumatologic disease -not on immunosuppression.
Full code
Dispo -medically stable for discharge today. Outpatient follow-up with PCP and pulmonary.
Discussed with nursing, discharge after next dose of antibiotics this morning.
32 minutes spent in discharge process.
Anticipated Discharge: Today
Subjective/Interval History
-
Date of Service: February 14, 2025
Patient seen and examined. Her chest is feeling somewhat better, less pain today.
Objective Data
-
Labs:
Laboratory Results
02/14/25
06:30
WBC 16.7 H
Hgb 11.0 L
Hct 33.8 L
Plt Count 293
Sodium 135
Potassium 4.0
Chloride 104
Carbon Dioxide 26
BUN 6 L
Creatinine 0.6
Glucose 95
Calcium 9.3
Vital Signs:
Vital Signs
Temp Pulse Resp BP Pulse Ox
97.4 F 90 16 101/66 98
02/14/25 07:05 02/14/25 07:05 02/14/25 07:05 02/14/25 07:05 02/14/25 07:05
I&O
02/13/25 02/14/25 02/15/25
06:59 06:59 06:59
Intake Total 240 / 240
Balance 240 / 240
Review of Systems
-
History Source: Patient
All other systems: Reviewed and negative
--- NOTE | 2025-02-14 08:33 | W.DS.TRANS ---
DC Summary - Crab[facility]
-
Discharge Instructions:
Discharge Diagnosis/Procedures Recurrent community-acquired pneumonia
Diet Regular
Activity As tolerated
Driving Restrictions As prior to admission
Bathing Restrictions None
Instructions:
Stand-Alone Forms:
Changes to Home Medications: No
Discharge Medications:
DC Medications w/original date entered in [facility]
lamotrigine 200 mg tablet (Lamictal) 300 mg PO HS Mental Health/Anxiety 12/19/19
lumateperone 42 mg capsule (Caplyta) 42 mg PO HS Mental Health/Anxiety 11/23/22
oxycodone 5 mg tablet 5 mg PO Q8HPRN PRN severe pains 09/05/23
clonazepam 0.5 mg tablet 0.5 mg PO 5/D PRN anxiety 02/13/25
drospirenone 3 mg-ethinyl estradiol 0.03 mg tablet (Zumandimine (28)) 1 tab PO DAILY hormone 02/13/25
duloxetine 30 mg capsule,delayed release 30 mg PO DAILY Mental Health/Anxiety 02/13/25
duloxetine 60 mg capsule,delayed release 60 mg PO DAILY Mental Health/Anxiety 02/13/25
ibuprofen 200 mg tablet 600 mg PO DAILYPRN PRN mild pain 02/13/25
guaifenesin 600 mg tablet, extended release 12 hr 600 mg PO Q12 #0 tabs 02/14/25
levofloxacin 750 mg tablet 750 mg PO DAILY #5 tabs 02/14/25
Home Medication Changes
Pending Results: No
[2025-02-14] MEDS: CYMBALTA DELAYED RELEASE 30 MG PO (09:05)
[2025-02-14] MEDS: CYMBALTA DELAYED RELEASE 60 MG PO (09:05)
[2025-02-14] MEDS: ROCEPHIN 1000 MG IV (09:06)
[2025-02-14] MEDS: VIBRAMYCIN 100 MG PO ×2 (09:06→19:44)
[2025-02-14] MEDS: FLUSH (NSS) 2 FLUSH IV ×3 (09:06→16:53)
[2025-02-14] MEDS: STERILE WATER FOR INJECTION 10 ML IV (09:06)
[2025-02-14] MEDS: MUCINEX 600 MG PO ×2 (09:06→19:44)
[2025-02-14 15:00] VITALS: BP 108/81
[2025-02-14] MEDS: TYLENOL 650 MG PO (17:03)
[2025-02-14] MEDS: LOVENOX 40 MG SC (18:13)
[2025-02-14] MEDS: NON-FORMULARY ITEM 42 MG PO (22:27)
[2025-02-14] MEDS: LAMICTAL 300 MG PO (22:27)
[2025-02-14 23:39] VITALS: BP 137/79
[2025-02-15 07:14] LABS: Hematocrit 36.5 % (37.0-47.0); Hemoglobin 12.1 g/dL (12.0-16.0); Mean Corp Hgb Conc. 33.2 g/dL (33.0-37.0); Mean Corpuscular Volume 86.5 fL (81.0-99.0); Nucleated Red Blood Cells % 0 %; Platelet Count 296 10^3/uL (130-400); Red Cell Dist. Width 13.2 % (11.5-14.5)
[2025-02-15 07:51] VITALS: BP 102/64
[2025-02-15] MEDS: VIBRAMYCIN 100 MG PO (08:54)
[2025-02-15] MEDS: CYMBALTA DELAYED RELEASE 60 MG PO (08:54)
[2025-02-15] MEDS: CYMBALTA DELAYED RELEASE 30 MG PO (08:54)
[2025-02-15] MEDS: MUCINEX 600 MG PO (08:54)
[2025-02-15] MEDS: ROCEPHIN 1000 MG IV (09:04)
[2025-02-15] MEDS: STERILE WATER FOR INJECTION 10 ML IV (09:04)
--- NOTE | 2025-02-15 11:07 | W.PN.HOSP.TC ---
Addendum entered and electronically signed by Ino Sung MD 02/15/25 11:13:
Correction: Transition to p.o. Levaquin on discharge
Original Note:
Today's Communication/Plan
-
Monitor vital signs see plan
Transition to oral antibiotic
Patient will follow-up with pulmonary
Time of discharge 38 minutes
Assessment / Plan
Assessment / Plan
Gen-AAOx3, NAD
HEENT-NC, AT, anicteric, clear oral mm
Neck-supple
CV-reg, no M, +S1/S2
Lungs-clear B/L
Abd-soft, NT, ND
Ext-no edema
Musculoskeletal-no edema
Neuro-grossly non-focal
Psych-calm, cooperative
Community-acquired pneumonia -CT chest shows right upper lobe opacification, small groundglass opacity in the superior segment of the right lower lobe. This would be her third episode of pneumonia in the 12 months. Leukocytosis noted but afebrile.
Hemodynamically stable.
Clinically improving, leukocytosis improving, she is feeling better. Afebrile.
Switch antibiotics to p.o. cefdinir and doxycycline. Patient has appointment with pulmonary tomorrow for possible bronchoscopy
Urinary antigens negative.
Influenza and COVID-negative.
Immunoglobulin panel, HIV pending.
Recommend outpatient follow-up with immunology, discussed with patient. She may have underlying immunodeficiency explaining recurrent pneumonia.
Patient is requesting discharge today, I see no contraindication. Will change to oral antibiotics. She does not want prescription for opioids on discharge.
Chronic chest pain -etiology remains elusive. Rule out rheumatologic disease. She has some tenderness to palpation over her chest. Costochondritis or other musculoskeletal etiology is possible. Pneumonia can certainly cause pain but would not
explain the chronic nature of the pain. She states she gets some relief after a course of antibiotics, but pain tends to recur.
Recommend outpatient follow-up with her county director welfare.
She states NSAIDs do not relieve her pain. Tried topical lidocaine in the past without relief. Oxycodone not helpful either.
Ultimately, long-term opiate use is not recommended.
Also has outpatient follow-up with cardiology
Bipolar disorder
Anxiety disorder
Unspecified rheumatologic disease -not on immunosuppression.
Full code
Anticipated Discharge: Today
Subjective/Interval History
-
Date of Service: February 15, 2025
Denies nausea
Objective Data
-
Labs:
Laboratory Results
02/15/25
06:29
WBC 8.4
Hgb 12.1
Hct 36.5 L
Plt Count 296
Vital Signs:
Vital Signs
Temp Pulse Resp BP Pulse Ox
97.8 F 67 16 102/64 97
02/15/25 07:51 02/15/25 07:51 02/15/25 07:51 02/15/25 07:51 02/15/25 07:51
I&O
02/14/25 02/15/25 02/16/25
06:59 06:59 06:59
Intake Total 240 / 240 480 / 480
Balance 240 / 240 480 / 480
--- NOTE | 2025-02-15 11:13 | W.DCSUMMARY ---
Discharge Summary
Discharge Data
Date of Admission: 02/13/25
Date of Discharge: 02/15/25
-
Pending Results: No
Hospital Course
50-year-old female with past medical history of bipolar disorder, anxiety, rheumatological disease came to the hospital with community-acquired pneumonia. Patient has had couple of the episode prior to this hospitalization for pneumonia. Patient
is already been following up with pulmonary and has an appointment tomorrow outpatient. Patient was treated with IV antibiotics here which improved her symptoms. Prior to discharge she was transitioned to oral Levaquin. Patient was also
instructed to follow-up with rheumatology outpatient for possibility of immunodeficiency. Patient also has chronic chest pain for which she has been following up outpatient. She also has cardiology appointment follow-up patient. Once her symptoms
continue to improve, she was then discharged home with instructions to follow-up with all her physicians outpatient.
Discharge Plan
-
Patient Disposition: Home (Routine Discharge)
Discharge Diagnosis/Procedures: Recurrent community-acquired pneumonia
Condition: Fair
Diet: Regular
Activity: As tolerated
Driving Restrictions: As prior to admission
Bathing Restrictions: None
Others Tests: Repeat chest x-ray in 4 weeks
Activity Restrictions/Additional Instructions:
Follow-up with your chief security officer and candy roller outpatient
Referrals:
Amanda Norwood MD [Family Provider, Internal Medicine] - in less than 1 week
Prescriptions:
New
guaifenesin 600 mg Tablet Extended Release 12hr
600 mg PO Q12 Qty: 0 0RF
levofloxacin 750 mg tablet
750 mg PO DAILY Qty: 5 0RF
Continued
lamotrigine [Lamictal] 200 MG tablet
300 mg PO HS
Caplyta 42 mg Capsule
42 mg PO HS
oxycodone 5 mg tablet
5 mg PO Q8HPRN PRN (Reason: severe pains)
Patient Comments:
filled 01/19/25 #90
clonazepam 0.5 mg tablet
0.5 mg PO 5/D PRN (Reason: anxiety)
Patient Comments:
filled 11/23/24 #450
ibuprofen 200 mg Tablet
600 mg PO DAILYPRN PRN (Reason: mild pain)
drospirenone-ethinyl estradiol [Zumandimine (28)] 3-0.03 mg Tablet
1 tab PO DAILY
duloxetine 30 mg capsule,delayed release(DR/EC)
30 mg PO DAILY
Rx Instructions:
take with duloxetine 60mg
duloxetine 60 mg Capsule,Delayed Release(Dr/Ec)
60 mg PO DAILY
Rx Instructions:
take with duloxetine 30mg
Discharge Orders:
Discharge Patient (As Directed); Ordered 02/15/25
Ordered By: Ino Sung
Discharge Date and Time
Discharge Date/Time: 02/15/25 11:44
Print Language: LIBYAN
[2025-02-15 11:26] VITALS: BP 127/86
== END 2025-02-15 11:44 | disposition home or self-care (01) | DRG 194 ==
LOC: 4 EAST ACU 13:48
PROVIDERS: ADMITTING PHYSICIAN Hospitalist; ATTENDING PHYSICIAN Internal Medicine; EMERGENCY PHYSICIAN Emergency Medicine; FAMILY PHYSICIAN Student in an Organized Health Care Education/Training Program
DX: J18.9 Pneumonia, unspecified organism (principal); D84.9 Immunodeficiency, unspecified; G89.29 Other chronic pain; M54.50 Low back pain, unspecified; F41.9 Anxiety disorder, unspecified; F31.9 Bipolar disorder, unspecified; G43.909 Migraine, unspecified, not intractable, without status migrainosus; D50.9 Iron deficiency anemia, unspecified; Z87.01 Personal history of pneumonia (recurrent); Z88.5 Allergy status to narcotic agent; Z11.52 Encounter for screening for COVID-19; Z87.440 Personal history of urinary (tract) infections
CPT/HCPCS: 71046; 71275; 80048; 80053; 82784; 84484; 85025; 87389; 87449; 87502; 87811; 87899; 93005; 96374; 99285; Q9967

== ENCOUNTER → 2025-03-02 16:41 | Outpatient (REF) | payer OTHER, SELFPAY | LOC: WDC 16:41 | PROVIDERS: ATTENDING PHYSICIAN Obstetrics & Gynecology; FAMILY PHYSICIAN Student in an Organized Health Care Education/Training Program | DX: Z12.31 Encounter for screening mammogram for malignant neoplasm of breast (principal) | CPT/HCPCS: 77063; 77067 ==

== ENCOUNTER 2025-06-23 23:48 | Emergency (ER) | payer OTHER, SELFPAY ==
[2025-06-23 23:51] VITALS: BP 141/73
[2025-06-24 00:09] VITALS: BP 131/83
[2025-06-24 00:12] VITALS: BMI 25.7
[2025-06-24] MEDS: NSS 1000 IV (00:46)
[2025-06-24] MEDS: DILAUDID 0.5 MG IV (00:47)
--- NOTE | 2025-06-24 00:54 | ED.GENMED ---
History of Present Illness
General
Chief Complaint: Chest Pain
Source: patient and previous hospital records (Several previous hospitalizations for recurrent pneumonia, most recently February 2025.)
Exam Limitations: none
Time Seen by Provider: 06/24/25 00:06
Nursing documentation reviewed up to this point in time: agreed with
History of Present Illness
History of Present Illness:
The patient is a 50-year-old female with a history of bipolar disorder, rheumatologic disorder, interstitial lung disease, cervical and lumbar disc disease, and chronic pain syndrome, managed on oxycodone 5 mg three times daily. She has history of
intermittent chest pain, follows with music arranger with unremarkable cardiac workup save for diagnosis of mitral valve prolapse.
This afternoon she developed left-sided chest pain, mild to moderate in nature, worse with movement and worse with deep breath. She took a dose of ibuprofen this afternoon with mild to moderate relief. Tonight however after attempting to sit up
from the couch she developed severe, excruciating central to left-sided chest pain that radiates to her left lateral neck, down her left arm. Chest pain is constant with intermittent waves of severe pain. Pain is worse with deep breath, worse with
movement. She denies shortness of breath. No nausea nor vomiting. No back pain. There is no history of gastroesophageal reflux disease.
The patient has a history of recurrent pneumonia, with prior hospitalizations in March 2024, August 2024, and most recently February 2025. Following the last episode, she had a follow-up with her gold assayer and underwent bronchoscopy, diagnosed
with interstitial lung disease. Was started on CellCept, inhalers and oral steroids. Most recently has been on a course of prednisone initially at 60 mg daily, currently tapered down to 10 mg daily.
She notes chronic cough, unchanged. No fever nor chills. The patient does not have a history of smoking.
She does not take oral contraceptives, these were discontinued in March prior to initiation of CellCept.
Last menstrual period normal and on time 1 week ago.
She denies leg pain or swelling. No recent travel.
Past History
Past History
ED Past Medical History: Psychiatric (Bipolar, Anxiety, depression), Other (Back and neck pain, Dizziness, Headaches, Migraines, Numbness in arms and legs, Pyelonephritis, Iron -def anemia, recurrent pneumonia, interstitial lung disease, chronic
pain-narcotic dependent) and Other ( Interstitial lung disease)
ED Past Surgical History: Orthopedic (Cervical laminectomy anterior approach)
Social History
Tobacco: Non-smoker
Alcohol: None
Drug: None
Personal:
Living: with family
Employment: Employed
Family History
Family History: Other (Reviewed and noncontributory)
Phy Exam
Physical Exam
Physical Exam:
GENERAL: 50-year-old woman appears her stated age, awake and alert, appears mildly uncomfortable, mildly anxious, tearful. Resistant to reposition. Easily communicative. No respiratory distress.
EYE: anicteric
NECK: Supple, nontender, no meningismus, no significant adenopathy.
ENT: oral mucosa is moist. No rhinorrhea.
CARDIAC: Regular rate and rhythm. no murmur. No rub. Mild to moderate tenderness left upper chest wall as well as left parasternal region. No crepitus.
LUNGS: No respiratory distress. Moderately decreased breath sounds at bases and poor inspiratory effort related to pain.
ABDOMEN: Soft, nondistended, without focal tenderness, no r/g, no cvat. normoactive BS.
NEUROLOGICAL: Alert and oriented x3, no focal neuro deficits.
SKIN: Warm and dry, normal color, skin intact. No rash.
MUSCULOSKELETAL: No C/C/E. peripheral pulses are full and equal b/l. No palpable tenderness.
PSYCH: Moderately anxious. Tearful.
Scores
Heart Score for Chest Pain Patients
STEMI patient?: No
History: Slightly or Non-Suspicious
ECG: Normal
Age: </= 45 years
Risk Factors: No Risk Factors
Troponin: </= Normal Limit
Heart Score for Chest Pain Patients: 0
Heart Score Risk: 2.5% MACE over next 6 weeks
Course
Orders/Labs/Results
Orders:
Orders
06/23/25 23:49
EKG [Electrocardiogram (*1)] Urgent
Reason for Study: Chest Pain
EKG- Treatment ONCE
06/24/25 00:30
CT Chest PE Study Urgent
Comment:
Reason For Exam: acute severe L CP, SOB
0.9% Sodium Chloride 1000 ml [Nss] 1,000 ml IV BOLUS
HYDROmorphone [Dilaudid] 0.5 mg IV NOW STA
06/24/25 00:31
Test Result ONCE
06/24/25 00:47
Complete Blood Count/With Diff Urgent
Comprehensive Metabolic Panel Urgent
HCG, Serum Qualitative Screen Urgent
Troponin I Urgent
06/24/25 02:08
Pantoprazole [Protonix IV] 40 mg IV NOW STA
Abnormal Lab Results
06/24/25
00:47
WBC 15.9 H 10^3/uL
(4.8-10.8)
MCHC 32.8 L g/dL
(33.0-37.0)
Abs Immat Gran (auto) 0.1 H 10^3/uL
(0-0.05)
Absolute Neuts (auto) 10.8 H 10^3/uL
(1.4-6.5)
Absolute Lymphs (auto) 3.5 H 10^3/uL
(1.2-3.4)
Absolute Monos (auto) 1.5 H 10^3/uL
(0.1-0.6)
Monocytes % 9.4 H %
(1.7-9.3)
Carbon Dioxide 32 H mmol/L
(22-30)
06/24/25 00:47
06/24/25 00:47
Vital Signs
Initial and Last Documented VS:
Initial Vital Signs
Temp Pulse Resp BP Pulse Ox
98.7 F 74 24 141/73 98
06/23/25 23:51 06/23/25 23:51 06/23/25 23:51 06/23/25 23:51 06/23/25 23:51
Last Documented Vital Signs
Temp Pulse Resp BP Pulse Ox
98.7 F 71 14 116/76 93
06/23/25 23:51 06/24/25 01:15 06/24/25 01:15 06/24/25 01:00 06/24/25 01:15
MDM/Problems Addressed
Differential Diagnosis Includes:
The Differential Diagnosis includes, in no particular order and is not limited to:
1. Costochondritis
2. Gastroesophageal reflux disease
3. Angina pectoris
4. Myocardial infarction
5. Pulmonary embolism
6. Pneumonia
7. Pleuritis
8. Fibromyalgia
9. Anxiety with somatic symptoms
10. Chronic obstructive pulmonary disease (COPD)
MDM/Problems Addressed:
Acute chest pain
EKG is unremarkable, unchanged from previous.
Acute chest pain, somewhat pleuritic in nature as well as musculoskeletal in nature.
With history of interstitial lung disease, recurrent pneumonias, immunocompromised with chronic steroids and CellCept, will check labs and plan for CT of the chest.
Will medicate for pain with an IV dose of Dilaudid.
Chronic conditions affecting care:
Chronic pain syndrome, narcotic dependent, cervical and lumbar DJD, interstitial lung disease, recurrent pneumonia, anxiety/bipolar disorder.
*Radiology
Radiology exam reviewed: radiology read reviewed
*Pulse Oximetry
SaO2: 100
Oxygen Mode of Delivery: Room air
Patient hypoxic: no
*EKG
Interpreted by ED Provider?: Yes
Interpretation: normal
Comparison EKG: no changes (Unchanged from previous February 2025)
Rate: normal
Rhythm: sinus
[place]: normal axis
Interval: normal interval
QRS Pattern: normal QRS
Ischemia: no ischemia
*Dependency Program Director Interpretation
Rate: normal
Interpretation: normal
Rhythm: sinus
*Critical Care Note
Total Time (30-74mins, 75-104mins- exclusive of procedures): Not Applicable
Update Note
Update Note:
02:05
Patient is much more comfortable after an IV dose of Dilaudid.
Resting comfortably, eating saltines and drinking juice.
Labs are unremarkable save for mildly elevated white blood cell count. Chemistries are unremarkable. Troponin is negative.
CT of the chest is overall unremarkable. No PE, no thoracic aortic aneurysm nor dissection. Bibasilar atelectasis is noted. No infiltrate.
There is however note of mild esophageal wall thickening. This may signify an element of acid reflux which may be cause for chest pain. The other consideration is an element of costochondritis/musculoskeletal chest pain. Recommend initiation of
daily PPI/Protonix.
Continue current as needed opioid pain medication as well as continue prednisone.
Recommend prompt follow-up with PCP as well as specialist including gold assayer, music arranger.
Return precautions discussed.
ED Attending Note
-
Portions of this chart may have been created with voice recognition software.� Occasional wrong word or��sound alike� substitutions may have occurred due to the inherent limitations of voice recognition software.
Discharge Plan
Departure
Patient Disposition: Home (Routine Discharge)
Date of Disposition: 06/24/25
Time of Disposition: 02:12
Patient with high blood pressure during this ER visit?: No
Condition: Good
Discharge Problem:
Acute chest pain, Acute costochondritis, Acute esophagitis
Instructions: Costochondritis, Acid reflux and GERD in adults, Chest Pain PCP Follow Up
Prescriptions:
New
pantoprazole [Protonix] 40 mg tablet,delayed release (DR/EC)
40 mg PO DAILY Qty: 30 0RF
No Action
lamotrigine [Lamictal] 200 MG tablet
300 mg PO HS
Caplyta 42 mg Capsule
42 mg PO HS
oxycodone 5 mg tablet
5 mg PO Q8HPRN PRN (Reason: severe pains)
Patient Comments:
filled 01/19/25 #90
clonazepam 0.5 mg tablet
0.5 mg PO 5/D PRN (Reason: anxiety)
Patient Comments:
filled 11/23/24 #450
ibuprofen 200 mg Tablet
600 mg PO DAILYPRN PRN (Reason: mild pain)
drospirenone-ethinyl estradiol [Zumandimine (28)] 3-0.03 mg Tablet
1 tab PO DAILY
duloxetine 30 mg capsule,delayed release(DR/EC)
30 mg PO DAILY
Rx Instructions:
take with duloxetine 60mg
duloxetine 60 mg Capsule,Delayed Release(Dr/Ec)
60 mg PO DAILY
Rx Instructions:
take with duloxetine 30mg
guaifenesin 600 mg Tablet Extended Release 12hr
600 mg PO Q12 Qty: 0 0RF
levofloxacin 750 mg tablet
750 mg PO DAILY Qty: 5 0RF
Referrals:
Amanda Norwood MD [Family Provider, Internal Medicine] - Call in 1-3 days for appt
Interventions
Interventions:
*Risk Screen - Suicide Last Done: 06/23/25 23:58
*General Assessment Last Done: 06/24/25 00:09
*Neglect/Abuse Screening Last Done: 06/24/25 00:09
*ED- Fall Risk Assessment Last Done: 06/24/25 00:09
*ED COVID-19 Vaccine History Last Done: 06/24/25 00:09
*ED Influenza Vaccine History Last Done: 06/24/25 00:09
ED- Cardiac Assessment Last Done: 06/24/25 00:13
Discharge Date and Time
Print Language: BENINESE
[2025-06-24 00:56] LABS: Hematocrit 37.2 % (37.0-47.0); Hemoglobin 12.2 g/dL (12.0-16.0); Mean Corp Hgb Conc. 32.8 g/dL (33.0-37.0); Mean Corpuscular Volume 87.3 fL (81.0-99.0); Nucleated Red Blood Cells % 0 %; Platelet Count 293 10^3/uL (130-400); Red Cell Dist. Width 13.9 % (11.5-14.5)
[2025-06-24 01:00] VITALS: BP 116/76
[2025-06-24 01:10] LABS: HCG, Serum Qualitative Screen Negative
[2025-06-24 01:24] LABS: ALT (SGPT) 23 U/L (0-35); AST (SGOT) 28 U/L (14-36); Albumin 4.3 g/dl (3.5-5.0); Alkaline Phosphatase 52 U/L (38-126); Blood Urea Nitrogen 9 mg/dl (7-17); Calcium 9.7 mg/dl (8.4-10.2); Carbon Dioxide 32 mmol/L (22-30); Chloride 99 mmol/L (98-107); Estimated Creatinine Clearance 89 ml/min; Glucose 91 mg/dl (70-99); Potassium 3.8 mmol/L (3.5-5.1); Sodium 135 mmol/L (135-145); Total Protein 6.7 g/dl (6.3-8.2); eGFR > 60.00
[2025-06-24 01:31] LABS: Troponin I < 0.012 ng/ml
[2025-06-24 02:00] VITALS: BP 127/87
[2025-06-24] MEDS: PROTONIX IV 40 MG IV (02:26)
== END 2025-06-24 02:47 | disposition home or self-care (01) ==
LOC: EMR 23:48
PROVIDERS: EMERGENCY PHYSICIAN Emergency Medicine; FAMILY PHYSICIAN Student in an Organized Health Care Education/Training Program
DX: M94.0 Chondrocostal junction syndrome [Tietze] (principal); K20.90 Esophagitis, unspecified without bleeding; G89.4 Chronic pain syndrome; I34.1 Nonrheumatic mitral (valve) prolapse
CPT/HCPCS: 96374; 96375; 96361; 99284; 71275; 80053; 84484; 84703; 85025; 93005; Q9967